=== PATIENT | male | born 1945 | race Caucasian/White ===

== ENCOUNTER 2023-07-19 01:07 | Inpatient (IN) ==
[2023-07-19 01:46] LABS: Basophils # (auto) 0.03 K/uL (0.00-0.20); Basophils % (auto) 0.4 %; Eosinophils # (auto) 0.26 K/uL (0.00-0.50); Eosinophils % (auto) 3.4 %; Hemoglobin 14.1 g/dl (14.0-18.0); Immature Granulocytes # (auto) 0.04 K/uL (0.01-0.20); Immature Granulocytes % (auto) 0.5 %; Lymphocytes # (auto) 2.37 K/uL (1.20-3.40); Lymphocytes % (auto) 31.1 %; Mean Corpuscular Hemoglobin 32.3 pg (25.0-34.0); Mean Corpuscular Hgb Conc 34.4 g/dL (32.0-36.0); Mean Platelet Volume 9.8 fL (9.4-12.4); Monocytes # (auto) 0.47 K/uL (0.11-0.59); Monocytes % (auto) 6.2 %; Neutrophils # (auto) 4.44 K/uL (1.40-6.50); Neutrophils % (auto) 58.4 %; Platelet Count 149 K/uL (130-400); RDW Coefficient of Variation 13.5 % (11.5-14.5); RDW Standard Deviation 46.3 fL (36.4-46.3); Red Blood Count 4.36 M/uL (4.70-6.10); White Blood Count 7.61 K/ul (4.8-10.8)
[2023-07-19 02:02] LABS: Alanine Aminotransferase 27 U/L (7-52); Albumin Globulin Ratio 1.9 (0.9-2); Albumin Level 4.1 gm/dl (3.4-5.0); Alkaline Phosphatase 69 U/L (34-104); Anion Gap 6 (3-11); Aspartate Aminotransferase 22 U/L (13-39); BUN Creatinine Ratio 16.8 (10-20); Bilirubin,Total 0.5 mg/dl (0.2-1.0); Blood Urea Nitrogen 19 mg/dl (6-23); Calcium 9.3 mg/dl (8.6-10.3); Carbon Dioxide 26 mmol/L (21-32); Chloride 110 mmol/L (98-107); Est GFR (African American) 72.3 ml/min; Est GFR (Non-African American) 62.4 ml/min; Globulin 2.2 gm/dl (2.5-4.0); Glucose 124 mg/dl (70-99(Fasting)); Potassium 3.3 mmol/L (3.5-5.1); Sodium 142 mmol/L (136-145); Total Protein 6.3 gm/dl (6.0-8.3)
--- NOTE | 2023-07-19 02:04 | Emergency Department Note ---
Impression & Plan 2nd degree atrioventricular block, 1st degree AV block, Vertigo ED Provider Note NAME: WARREN WILSON AGE: 77 SEX: M : 1945 ARRIVES VIA: Walk-In INFORMANT: Patient, ED PROVIDER(S): Chanel Heck MD CHIEF COMPLAINT: Dizzy HPI: This is a 77-year-old male presenting for dizziness. Patient states that he woke up around 12 and felt dizzy in which he felt vertigo type sensation. [place] like the room is spinning. He notes that when he rests this does improve. He did notice that last time this happened few years ago he was told he had a small stroke caused this. Otherwise no significant fever, chills, nausea or vomiting today. He does mention some slight gas in stomach. Some slight lower abdominal pain/back pain as well. ROS: See above HPI for pertinent positives & negatives. A total of 10 systems reviewed and were otherwise negative. PHYSICAL EXAMINATION: General: resting comfortably in no acute distress Head: Normocephalic and atraumatic Eyes: Normal inspection, extraocular muscles intact Ear, nose, throat: Normal external exam Neck: Normal range of motion Respiratory: lungs clear to auscultation bilaterally Cardiovascular: Regular rate/rhythm, no murmur GI: soft, nontender, no guarding or rebound Extremities: nontender, moves all extremities Neuro: The patient awake and alert, appropriately conversive, no focal deficits, symmetric faces, no dysmetria, left beating horizontal nystagmus Skin: Warm, dry, and intact MEDICAL DECISION MAKING: This is a 79-year-old male presenting for dizziness. Patient states last time he had some of this it was a small stroke. Concerning for central stroke at this time. -ECG independently interpreted by me with sinus bradycardia, rate of 58, normal axis, marked first-degree AV block with ND 408, normal QRS, normal QTc, no ST segment elevations consistent with STEMI criteria -On the monitor patient alternates between a first AV block and possible second- degree with occasionally dropped P waves -Blood was reviewed with hypokalemia 3.3, otherwise no significant abnormalities -CT of the head, CTA head/neck as well as abdomen/pelvis due to patient's current symptoms of central stroke as well as abdominal distention/pain. -CTs do not reveal any acute process at this time -Patient will require admission for further vertigo workup as well as patient's first/second-degree AV block at this time. Could be contributing to patient's current vertigo-like symptoms. Differential diagnosis: Send with stroke, dysrhythmia, peripheral vertigo, labyrinthitis, ACS, PE ER treatment provided: See below Diagnostics interpreted by me: ECG: See above Cardiac Monitoring: An order was placed for continuous cardiac monitoring. The monitor shows a rate of 52 with a sinus bradycardic rhythm. Laboratory studies: As stated above and show below. Imaging studies: See below. Past Med/Surg History Medical History Encounter for removal of sutures Hypertension Kidney stone Laceration of thumb, left Social History Smoking Status: Former smoker Tobacco Type: Cigarettes Preferred Language: Swiss Feels Safe at Home: Yes Allergies Allergies Allergy/AdvReac Type Severity Reaction Status Date / Time No Known Allergies Allergy Verified 07/19/23 02:03 Home Meds Home Medications Medication Instructions Recorded Confirmed aspirin 325 mg tablet 325 mg PO DAILY 01/04/18 07/19/23 atorvastatin 40 mg tablet 40 mg PO QPM 01/04/18 07/19/23 felodipine 5 mg tablet,extended 5 mg PO DAILY 01/04/18 07/19/23 release 24 hr glucosamine-chondroitin 250 mg-200 2 tabs PO DAILY 01/04/18 07/19/23 mg tablet (Osteo Bi-Flex) lisinopril 10 1 tab PO DAILY 01/04/18 07/19/23 mg-hydrochlorothiazide 12.5 mg tablet multivitamin 1 tab PO DAILY 01/04/18 07/19/23 Results & Data (ED) Vital Signs Vital Signs - 24 hr 07/19/23 01:14 07/19/23 01:36 07/19/23 01:47 Temperature 36.5 C Temperature Source Oral Pulse Rate 58 L 56 L Pulse Rate [Apical] Pulse Rate from SpO2 Sensor Respiratory Rate Respiratory Effort / Characteristics Respiratory Depth Respiratory Pattern Blood Pressure 177/90 H Blood Pressure [Left Arm] Blood Pressure Mean 119 Blood Pressure Mean [Left Arm] Pulse Oximetry 96 99 Oxygen Delivery Method Room Air Room Air Sepsis Recent Fever Within 48 Hours No Sepsis New/Unexplained Change in Mental Status No Sepsis Action Taken by Nursing No Action Required 07/19/23 01:47 07/19/23 01:47 07/19/23 03:08 Temperature Temperature Source Pulse Rate 62 Pulse Rate [Apical] 57 L 57 L Pulse Rate from SpO2 Sensor Respiratory Rate 18 18 18 Respiratory Effort / Characteristics Non-Labored Non-Labored Respiratory Depth Normal Normal Respiratory Pattern Regular Regular Blood Pressure Blood Pressure [Left Arm] 170/90 H Blood Pressure Mean Blood Pressure Mean [Left Arm] 116 Pulse Oximetry 98 98 98 Oxygen Delivery Method Room Air Sepsis Recent Fever Within 48 Hours Sepsis New/Unexplained Change in Mental Status Sepsis Action Taken by Nursing 07/19/23 04:20 07/19/23 04:30 07/19/23 04:30 Temperature Temperature Source Pulse Rate 49 L 64 Pulse Rate [Apical] 57 L Pulse Rate from SpO2 Sensor 50 L 62 Respiratory Rate 10 L 18 20 Respiratory Effort / Characteristics Non-Labored Respiratory Depth Normal Respiratory Pattern Regular Blood Pressure Blood Pressure [Left Arm] 195/102 H Blood Pressure Mean Blood Pressure Mean [Left Arm] 133 Pulse Oximetry 96 97 98 Oxygen Delivery Method Room Air Sepsis Recent Fever Within 48 Hours Sepsis New/Unexplained Change in Mental Status Sepsis Action Taken by Nursing 07/19/23 04:40 07/19/23 04:50 Temperature Temperature Source Pulse Rate 60 44 L Pulse Rate [Apical] Pulse Rate from SpO2 Sensor 59 L 47 L Respiratory Rate 13 9 L Respiratory Effort / Characteristics Respiratory Depth Respiratory Pattern Blood Pressure Blood Pressure [Left Arm] Blood Pressure Mean Blood Pressure Mean [Left Arm] Pulse Oximetry 97 98 Oxygen Delivery Method Sepsis Recent Fever Within 48 Hours Sepsis New/Unexplained Change in Mental Status Sepsis Action Taken by Nursing Laboratory Data 07/19/23 01:32 07/19/23 01:32 Lab Results 07/19/23 Range/Units 01:32 WBC 7.61 (4.8-10.8) K/ul RBC 4.36 L (4.70-6.10) M/uL Hgb 14.1 (14.0-18.0) g/dl Hct 41.0 L (42.0-52.0) % MCV 94.0 (80.0-100.0) fL MCH 32.3 (25.0-34.0) pg MCHC 34.4 (32.0-36.0) g/dL RDW Std Deviation 46.3 (36.4-46.3) fL RDW Coeff of [place]oney 13.5 (11.5-14.5) % Plt Count 149 (130-400) K/uL MPV 9.8 (9.4-12.4) fL Immature Gran % (Auto) 0.5 % Neut % (Auto) 58.4 % Lymph % (Auto) 31.1 % [place] % (Auto) 6.2 % Eos % (Auto) 3.4 % Baso % (Auto) 0.4 % Neut # (Auto) 4.44 (1.40-6.50) K/uL Lymph # (Auto) 2.37 (1.20-3.40) K/uL [place] # (Auto) 0.47 (0.11-0.59) K/uL Eos # (Auto) 0.26 (0.00-0.50) K/uL Baso # (Auto) 0.03 (0.00-0.20) K/uL Immature Gran # (Auto) 0.04 (0.01-0.20) K/uL Sodium 142 (136-145) mmol/L Potassium 3.3 L (3.5-5.1) mmol/L Chloride 110 H (98-107) mmol/L Carbon Dioxide 26 (21-32) mmol/L Anion Gap 6 (3-11) BUN 19 (6-23) mg/dl Creatinine 1.13 (0.6-1.4) mg/dl Est Cr Clr Drug Dosing Not Reportable Est GFR ( Amer) 72.3 ml/min Est GFR (Non-Af Amer) 62.4 ml/min BUN/Creatinine Ratio 16.8 (10-20) Glucose 124 H (70-99(Fasting)) mg/dl Calcium 9.3 (8.6-10.3) mg/dl Total Bilirubin 0.5 (0.2-1.0) mg/dl AST 22 (13-39) U/L ALT 27 (7-52) U/L Alkaline Phosphatase 69 (34-104) U/L Troponin I High Sens 8.7 (0-20) pg/ml Total Protein 6.3 (6.0-8.3) gm/dl Albumin 4.1 (3.4-5.0) gm/dl Globulin 2.2 L (2.5-4.0) gm/dl Albumin/Globulin Ratio 1.9 (0.9-2) Lyme Disease Screen Negative (Negative) Administered Medications Discontinued Medications Hydralazine HCl (Hydralazine Hcl 25 Mg Tab) 25 mg PO NOW STA Stop: 07/19/23 04:31 Last Admin: 07/19/23 04:38 Dose: 25 mg Documented By: CRISTIANE Ioversol (Optiray 320 125ml) 125 ml IV ONCE ONE Stop: 07/19/23 02:25 Last Admin: 07/19/23 02:24 Dose: 118 ml Documented By: MILENA Potassium Chloride (Potassium Chloride Crtab 20 Meq Tabcr) 40 meq PO NOW STA Stop: 07/19/23 06:17 Last Admin: 07/19/23 06:41 Dose: 40 meq Documented By: MATTHEW Imaging Data Radiologist's Impression: Abdomen/Pelvis CT 07/19/23 01:33 Exam(s): CT ABDOMEN + PELVIS With Contrast IV Amt: 118 ML OPTIRAY 320 EXAM: CT Abdomen and Pelvis With Intravenous Contrast CLINICAL HISTORY: Reason for exam: abd pain, diffuse. TECHNIQUE: Axial computed tomography images of the abdomen and pelvis with intravenous contrast. CTDI is 114.81 mGy and DLP is 2977.26 mGy-cm. Automated exposure control was utilized for the study. A dose lowering technique was utilized adhering to the principles of ALARA. CONTRAST: Patient received 118 ML OPTIRAY 320 of IV contrast COMPARISON: January 04, 2018 FINDINGS: Lung bases: Unremarkable. No mass. No consolidation. ABDOMEN: Liver: Unremarkable. No mass. Gallbladder and bile ducts: Unremarkable. No calcified stones. No ductal dilation. Pancreas: Unremarkable. No mass. No ductal dilation. Spleen: Unremarkable. No splenomegaly. Adrenals: Unremarkable. No mass. Kidneys and ureters: There is a nonobstructive 3 mm calyceal calculus in the left kidney. No hydronephrosis or ureterolithiasis is seen involving either kidney. Several simple renal cysts are present measuring up to 4.8 cm on the right. No follow-up is required. Stomach and bowel: See below. PELVIS: Appendix: The appendix is normal. Bowel loops are nondilated. There is diverticulosis throughout the colon without evidence of acute diverticulitis. No acute inflammatory changes are seen involving the bowel. Bladder: Unremarkable. No mass. Reproductive: Unremarkable as visualized. ABDOMEN and PELVIS: Intraperitoneal space: Unremarkable. No free air. No significant fluid collection. Bones/joints: Mild to moderate degenerative changes throughout the spine. No acute fracture or subluxation is seen. Soft tissues: Unremarkable. Vasculature: Atherosclerotic changes involving the abdominal aorta with mild ectasia measuring 3 cm. No abdominal aortic aneurysm. Lymph nodes: Unremarkable. No enlarged lymph nodes. IMPRESSION: 1. The appendix is normal. Bowel loops are nondilated. There is diverticulosis throughout the colon without evidence of acute diverticulitis. No acute inflammatory changes are seen involving the bowel. 2. There is a nonobstructive 3 mm calyceal calculus in the left kidney. No hydronephrosis or ureterolithiasis is seen involving either kidney. Electronically signed by: Cordell Younger MD 07/19/23 03:[address] 07/19/23 01:33 Exam(s): CT HEAD Without Contrast EXAM: CT Head Without Intravenous Contrast CLINICAL HISTORY: Reason for exam: vertigo. TECHNIQUE: Axial computed tomography images of the head/brain without intravenous contrast. CTDI is 31.05 mGy and DLP is 512.02 mGy-cm. Automated exposure control was utilized for the study. A dose lowering technique was utilized adhering to the principles of ALARA. COMPARISON: No relevant prior studies available. FINDINGS: Brain: Unremarkable. No hemorrhage. Moderate nonspecific white matter changes. No edema. Ventricles: Unremarkable. No ventriculomegaly. Bones/joints: Unremarkable. No acute fracture. Soft tissues: There is a smoothly marginated soft tissue lesion in the medial left orbit, measuring approximately 15.2 x 11.3 x 9.4 mm. Sinuses: Chronic ethmoid sinusitis. No acute sinusitis. Mastoid air cells: Unremarkable as visualized. No mastoid effusion. IMPRESSION: No evidence of acute intracranial pathology. There is a soft tissue lesion in the medial left orbit measuring 15.2 x 11.3 x 9.4 mm. Recommend MRI of the orbits with and without contrast for further evaluation. Electronically signed by: Orin Mei MD 07/19/23 03:17 AM Head CTA 07/19/23 01:57 Exam(s): CTA HEAD With Contrast IV Amt: 118 ML OPTIRAY 320 EXAM: CT Angiography Head With Intravenous Contrast CLINICAL HISTORY: Reason for exam: vertigo, hx stroke. TECHNIQUE: Axial computed tomographic angiography images of the head with intravenous contrast. CTDI is 114.81 mGy and DLP is 2977.26 mGy-cm. Automated exposure control was utilized for the study. A dose lowering technique was utilized adhering to the principles of ALARA. MIP reconstructed images were created and reviewed. CONTRAST: Patient received 118 ML OPTIRAY 320 of IV contrast COMPARISON: No relevant prior studies available. FINDINGS: The dural venous sinuses are patent. Right internal carotid artery: No acute findings. Intracranial segment is patent with no significant stenosis. No aneurysm. Right anterior cerebral artery: Unremarkable. No occlusion or significant stenosis. No aneurysm. Right middle cerebral artery: Unremarkable. No occlusion or significant stenosis. No aneurysm. Right posterior cerebral artery: Unremarkable. No occlusion or significant stenosis. No aneurysm. Right vertebral artery: Unremarkable as visualized. Left internal carotid artery: No acute findings. Intracranial segment is patent with no significant stenosis. No aneurysm. Left anterior cerebral artery: Unremarkable. No occlusion or significant stenosis. No aneurysm. Left middle cerebral artery: Unremarkable. No occlusion or significant stenosis. No aneurysm. Left posterior cerebral artery: Unremarkable. No occlusion or significant stenosis. No aneurysm. Left vertebral artery: Unremarkable as visualized. Basilar artery: Unremarkable. No occlusion or significant stenosis. No aneurysm. IMPRESSION: Negative CT angiogram of the head. Electronically signed by: Orin Mei MD 07/19/23 03:31 AM Neck CTA 07/19/23 01:57 Exam(s): CTA NECK With Contrast IV Amt: 118 ML OPTIRAY 320 EXAM: CT Angiography Neck With Intravenous Contrast CLINICAL HISTORY: Reason for exam: vertigo, hx stroke. TECHNIQUE: Routine carotid CT angiography protocol was performed with intravenous contrast. NASCET criteria using the distal ICAs for comparison were used for evaluation of stenoses. CTDI is 114.81 mGy and DLP is 2977.26 mGy-cm. Automated exposure control was utilized for the study. A dose lowering technique was utilized adhering to the principles of ALARA. MIP reconstructed images were created and reviewed. CONTRAST: Patient received 118 ML OPTIRAY 320 of IV contrast COMPARISON: None. FINDINGS: VASCULATURE: Ectasia of the ascending aorta measuring 34.7 mm in diameter. Right common carotid artery: Unremarkable. No occlusion or significant stenosis. No dissection. Right internal carotid artery: Unremarkable. Extracranial segment is patent with no occlusion or significant stenosis. No dissection. Right external carotid artery: Unremarkable. No occlusion. Right vertebral artery: Unremarkable. No occlusion or significant stenosis. No dissection. Left common carotid artery: Unremarkable. No occlusion or significant stenosis. No dissection. Left internal carotid artery: Unremarkable. Extracranial segment is patent with no occlusion or significant stenosis. No dissection. Left external carotid artery: Unremarkable. No occlusion. Left vertebral artery: Unremarkable. No occlusion or significant stenosis. No dissection. NECK: Bones/joints: Unremarkable. No acute fracture. Soft tissues: Prominent mediastinal and hilar lymph nodes. Lung apices: Bronchitis with pneumonitis, which may be of infectious or inflammatory jaundice. CAROTID STENOSIS REFERENCE USING NASCET CRITERIA: % ICA stenosis = (1 - narrowest ICA diameter/diameter of distal cervical ICA) x 100. Mild - <50% stenosis. Moderate - 50-69% stenosis. Severe - 70-94% stenosis. Near occlusion - 95-99% stenosis. Occluded - 100% stenosis. IMPRESSION: Negative CTA neck. Electronically signed by: Orin Mei MD 07/19/23 03:38 AM Discharge Plan Visit Data Chief Complaint: Dizziness Stated Complaint: DIZZINESS,PAIN IN LWR BACK ED Provider: Chanel Heck Discharge Problem: 2nd degree atrioventricular block, 1st degree AV block, Vertigo Patient Disposition: Admitted As Inpatient Discharge Instructions Interventions: ED Discharge Assessment Last Done: 07/19/23 06:41
[2023-07-19] MEDS: OPTIRAY 320 125ml IV ONE (02:24)
[2023-07-19 02:29] LABS: Troponin I High Sensitivity 8.7 pg/ml (0-20)
--- NOTE | 2023-07-19 03:18 | CT Scan Report ---
Exam(s): CT HEAD Without Contrast EXAM: CT Head Without Intravenous Contrast CLINICAL HISTORY: Reason for exam: vertigo. TECHNIQUE: Axial computed tomography images of the head/brain without intravenous contrast. CTDI is 31.05 mGy and DLP is 512.02 mGy-cm. Automated exposure control was utilized for the study. A dose lowering technique was utilized adhering to the principles of ALARA. COMPARISON: No relevant prior studies available. FINDINGS: Brain: Unremarkable. No hemorrhage. Moderate nonspecific white matter changes. No edema. Ventricles: Unremarkable. No ventriculomegaly. Bones/joints: Unremarkable. No acute fracture. Soft tissues: There is a smoothly marginated soft tissue lesion in the medial left orbit, measuring approximately 15.2 x 11.3 x 9.4 mm. Sinuses: Chronic ethmoid sinusitis. No acute sinusitis. Mastoid air cells: Unremarkable as visualized. No mastoid effusion. IMPRESSION: No evidence of acute intracranial pathology. There is a soft tissue lesion in the medial left orbit measuring 15.2 x 11.3 x 9.4 mm. Recommend MRI of the orbits with and without contrast for further evaluation. Electronically signed by: Orin Mei MD 07/19/23 03:17 AM
--- NOTE | 2023-07-19 03:28 | CT Scan Report ---
Exam(s): CT ABDOMEN + PELVIS With Contrast IV Amt: 118 ML OPTIRAY 320 EXAM: CT Abdomen and Pelvis With Intravenous Contrast CLINICAL HISTORY: Reason for exam: abd pain, diffuse. TECHNIQUE: Axial computed tomography images of the abdomen and pelvis with intravenous contrast. CTDI is 114.81 mGy and DLP is 2977.26 mGy-cm. Automated exposure control was utilized for the study. A dose lowering technique was utilized adhering to the principles of ALARA. CONTRAST: Patient received 118 ML OPTIRAY 320 of IV contrast COMPARISON: January 04, 2018 FINDINGS: Lung bases: Unremarkable. No mass. No consolidation. ABDOMEN: Liver: Unremarkable. No mass. Gallbladder and bile ducts: Unremarkable. No calcified stones. No ductal dilation. Pancreas: Unremarkable. No mass. No ductal dilation. Spleen: Unremarkable. No splenomegaly. Adrenals: Unremarkable. No mass. Kidneys and ureters: There is a nonobstructive 3 mm calyceal calculus in the left kidney. No hydronephrosis or ureterolithiasis is seen involving either kidney. Several simple renal cysts are present measuring up to 4.8 cm on the right. No follow-up is required. Stomach and bowel: See below. PELVIS: Appendix: The appendix is normal. Bowel loops are nondilated. There is diverticulosis throughout the colon without evidence of acute diverticulitis. No acute inflammatory changes are seen involving the bowel. Bladder: Unremarkable. No mass. Reproductive: Unremarkable as visualized. ABDOMEN and PELVIS: Intraperitoneal space: Unremarkable. No free air. No significant fluid collection. Bones/joints: Mild to moderate degenerative changes throughout the spine. No acute fracture or subluxation is seen. Soft tissues: Unremarkable. Vasculature: Atherosclerotic changes involving the abdominal aorta with mild ectasia measuring 3 cm. No abdominal aortic aneurysm. Lymph nodes: Unremarkable. No enlarged lymph nodes. IMPRESSION: 1. The appendix is normal. Bowel loops are nondilated. There is diverticulosis throughout the colon without evidence of acute diverticulitis. No acute inflammatory changes are seen involving the bowel. 2. There is a nonobstructive 3 mm calyceal calculus in the left kidney. No hydronephrosis or ureterolithiasis is seen involving either kidney. Electronically signed by: Cordell Younger MD 07/19/23 03:27 AM
--- NOTE | 2023-07-19 03:32 | CT Scan Report ---
Exam(s): CTA HEAD With Contrast IV Amt: 118 ML OPTIRAY 320 EXAM: CT Angiography Head With Intravenous Contrast CLINICAL HISTORY: Reason for exam: vertigo, hx stroke. TECHNIQUE: Axial computed tomographic angiography images of the head with intravenous contrast. CTDI is 114.81 mGy and DLP is 2977.26 mGy-cm. Automated exposure control was utilized for the study. A dose lowering technique was utilized adhering to the principles of ALARA. MIP reconstructed images were created and reviewed. CONTRAST: Patient received 118 ML OPTIRAY 320 of IV contrast COMPARISON: No relevant prior studies available. FINDINGS: The dural venous sinuses are patent. Right internal carotid artery: No acute findings. Intracranial segment is patent with no significant stenosis. No aneurysm. Right anterior cerebral artery: Unremarkable. No occlusion or significant stenosis. No aneurysm. Right middle cerebral artery: Unremarkable. No occlusion or significant stenosis. No aneurysm. Right posterior cerebral artery: Unremarkable. No occlusion or significant stenosis. No aneurysm. Right vertebral artery: Unremarkable as visualized. Left internal carotid artery: No acute findings. Intracranial segment is patent with no significant stenosis. No aneurysm. Left anterior cerebral artery: Unremarkable. No occlusion or significant stenosis. No aneurysm. Left middle cerebral artery: Unremarkable. No occlusion or significant stenosis. No aneurysm. Left posterior cerebral artery: Unremarkable. No occlusion or significant stenosis. No aneurysm. Left vertebral artery: Unremarkable as visualized. Basilar artery: Unremarkable. No occlusion or significant stenosis. No aneurysm. IMPRESSION: Negative CT angiogram of the head. Electronically signed by: Orin Mei MD 07/19/23 03:31 AM
--- NOTE | 2023-07-19 03:39 | CT Scan Report ---
Exam(s): CTA NECK With Contrast IV Amt: 118 ML OPTIRAY 320 EXAM: CT Angiography Neck With Intravenous Contrast CLINICAL HISTORY: Reason for exam: vertigo, hx stroke. TECHNIQUE: Routine carotid CT angiography protocol was performed with intravenous contrast. NASCET criteria using the distal ICAs for comparison were used for evaluation of stenoses. CTDI is 114.81 mGy and DLP is 2977.26 mGy-cm. Automated exposure control was utilized for the study. A dose lowering technique was utilized adhering to the principles of ALARA. MIP reconstructed images were created and reviewed. CONTRAST: Patient received 118 ML OPTIRAY 320 of IV contrast COMPARISON: None. FINDINGS: VASCULATURE: Ectasia of the ascending aorta measuring 34.7 mm in diameter. Right common carotid artery: Unremarkable. No occlusion or significant stenosis. No dissection. Right internal carotid artery: Unremarkable. Extracranial segment is patent with no occlusion or significant stenosis. No dissection. Right external carotid artery: Unremarkable. No occlusion. Right vertebral artery: Unremarkable. No occlusion or significant stenosis. No dissection. Left common carotid artery: Unremarkable. No occlusion or significant stenosis. No dissection. Left internal carotid artery: Unremarkable. Extracranial segment is patent with no occlusion or significant stenosis. No dissection. Left external carotid artery: Unremarkable. No occlusion. Left vertebral artery: Unremarkable. No occlusion or significant stenosis. No dissection. NECK: Bones/joints: Unremarkable. No acute fracture. Soft tissues: Prominent mediastinal and hilar lymph nodes. Lung apices: Bronchitis with pneumonitis, which may be of infectious or inflammatory jaundice. CAROTID STENOSIS REFERENCE USING NASCET CRITERIA: % ICA stenosis = (1 - narrowest ICA diameter/diameter of distal cervical ICA) x 100. Mild - <50% stenosis. Moderate - 50-69% stenosis. Severe - 70-94% stenosis. Near occlusion - 95-99% stenosis. Occluded - 100% stenosis. IMPRESSION: Negative CTA neck. Electronically signed by: Orin Mei MD 07/19/23 03:38 AM
[2023-07-19] MEDS: hydrALAZINE HCL 25 MG TAB PO STA (04:38)
[2023-07-19] MEDS ORDERED: ATROPINE SULFATE 0.1 MG/ML 10ML SYR IV PRN (05:47)
--- NOTE | 2023-07-19 05:53 | History & Physical Report ---
Date of Service July 19, 2023 Assessment & Plan (1) Dizziness: Plan: 77-year-old male with past medical history significant for dyslipidemia, prediabetes, hypertension, irritable colon, BPH, proteinuria, eczema, obesity, history of TIA, history of kidney stones presents with dizziness. Patient lives with his son. Ambulates without support. Around midnight when he woke up to go to the bathroom started feeling dizzy. Seems when he had dizziness in the past found to have TIA and prompted him to come to the ER. Currently dizziness resolved while resting. But when he tried to walk to the bathroom in the ER he felt dizzy. No room spinning. No nausea. No chest pain. No shortness of breath. No cough. No fevers. No headache. Vision is okay. No runny nose or sore throat. Appetite is okay. No difficulty swallowing. No abdominal pain. Normal bowel and bladder movements. Denies bloody or black stools . Dizziness Currently while resting doing okay But dizziness came back while ambulating to the bathroom in the ER No spinning of the room CT head: soft tissue lesion in the medial left orbit measuring 15.2 x 11.3 x 9.4 mm. 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 Cardiology consult Close telemonitoring Hypertension Elevated Continue home medications felodipine, lisinopril /hydrochlorothiazide Received a dose of p.o. hydralazine for elevated blood pressure Will monitor closely Hyperlipidemia On statin Follow lipid profile Prediabetes Follow HbA1c levels DVT prophylaxis SCDs for now Disposition Telemetry Full code History of Present Illness Chief Complaint: Dizziness Primary Care Provider: Facundo Mcgill DO 77-year-old male with past medical history significant for dyslipidemia, prediabetes, hypertension, irritable colon, BPH, proteinuria, eczema, obesity, history of TIA, history of kidney stones presents with dizziness. Patient lives with his son. Ambulates without support. Around midnight when he woke up to go to the bathroom started feeling dizzy. Seems when he had dizziness in the past found to have TIA and prompted him to come to the ER. Currently dizziness resolved while resting. But when he tried to walk to the bathroom in the ER he felt dizzy. No room spinning. No nausea. No chest pain. No shortness of breath. No cough. No fevers. No headache. Vision is okay. No runny nose or sore throat. Appetite is okay. No difficulty swallowing. No abdominal pain. Normal bowel and bladder movements. Denies bloody or black stools . Past medical history. As mentioned above Past surgical history. Colonoscopy. Cystoscopy with lithotripsy ,left third finger repair. Social history. . Lives with her son. Quit smoking 1990. Smoked on average 0.5 packs a day for 22 years. Alcohol 2 standard drinks of alcohol per week. No drug use. Family history. Father had throat cancer. Sister had diabetes. Brother had heart disorder. Mother had lung disorder. Allergies Allergy/AdvReac Type Severity Reaction Status Date / Time No Known Allergies Allergy Verified 07/19/23 02:03 Home Medications Medication Instructions Recorded Confirmed Type aspirin 325 mg tablet 325 mg PO DAILY 01/04/18 07/19/23 History atorvastatin 40 mg tablet 40 mg PO QPM 01/04/18 07/19/23 History felodipine 5 mg tablet,extended 5 mg PO DAILY 01/04/18 07/19/23 History release 24 hr glucosamine-chondroitin 250 mg-200 2 tabs PO DAILY 01/04/18 07/19/23 History mg tablet (Osteo Bi-Flex) lisinopril 10 1 tab PO DAILY 01/04/18 07/19/23 History mg-hydrochlorothiazide 12.5 mg tablet multivitamin 1 tab PO DAILY 01/04/18 07/19/23 History Past Med/Surg History Medical History Hypertension Kidney stone Encounter for removal of sutures Laceration of thumb, left Social History Smoking Status: Former smoker Tobacco Type: Cigarettes Do You Dip or Chew Tobacco: No; Hx Alcohol Use: No Hx Substance Use: No Preferred Language: Divehi Communication Ability: Effective 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 ENT- oropharynx clear Neck- supple, no JVD. Lungs- clear to auscultation no wheezing or crackles Heart- regular rhythm; no murmur, no gallop. Abdomen- normal bowel sounds, soft, nontender, no distension. Extremities- no pretibial edema, no erythema seen. Neuro- alert, oriented x 3; PERRL, EOMI; no facial palsy; no dysarthria; motor 5/5 bilaterally; no pronator drift, co ordination of movements normal. sensations intact, position sense intact. Skin- warm & dry Results & Data Results & Data Vital Signs (Past 12 Hours) Vital Signs Temp Pulse Pulse Resp BP BP Pulse Ox 07/19/23 05:31 46 L 07/19/23 05:30 163/86 H 07/19/23 05:30 49 L 16 163/86 H 96 07/19/23 04:50 44 L 9 L 98 07/19/23 04:40 60 13 97 07/19/23 04:30 64 20 98 07/19/23 04:30 57 L 18 195/102 H 97 07/19/23 04:20 49 L 10 L 96 07/19/23 03:08 57 L 18 170/90 H 98 07/19/23 01:47 62 18 98 07/19/23 01:47 57 L 18 98 07/19/23 01:47 99 07/19/23 01:36 56 L 07/19/23 01:14 36.5 C 58 L 177/90 H 96 O2 Del Method 07/19/23 05:31 07/19/23 05:30 07/19/23 05:30 07/19/23 04:50 07/19/23 04:40 07/19/23 04:30 07/19/23 04:30 Room Air 07/19/23 04:20 07/19/23 03:08 07/19/23 01:47 Room Air 07/19/23 01:47 07/19/23 01:47 Room Air 07/19/23 01:36 07/19/23 01:14 Room Air Diagnostic Findings Laboratory Results WBC 7.61 K/ul (4.8-10.8) 07/19/23 01:32 RBC 4.36 M/uL (4.70-6.10) L 07/19/23 01:32 Hgb 14.1 g/dl (14.0-18.0) 07/19/23 01:32 Hct 41.0 % (42.0-52.0) L 07/19/23 01:32 MCV 94.0 fL (80.0-100.0) 07/19/23 01:32 MCH 32.3 pg (25.0-34.0) 07/19/23 01:32 MCHC 34.4 g/dL (32.0-36.0) 07/19/23 01:32 RDW Std Deviation 46.3 fL (36.4-46.3) 07/19/23 01:32 RDW Coeff of Roney 13.5 % (11.5-14.5) 07/19/23 01:32 Plt Count 149 K/uL (130-400) 07/19/23 01:32 MPV 9.8 fL (9.4-12.4) 07/19/23 01:32 Immature Gran % (Auto) 0.5 % 07/19/23 01:32 Neut % (Auto) 58.4 % 07/19/23 01:32 Lymph % (Auto) 31.1 % 07/19/23 01:32 [place] % (Auto) 6.2 % 07/19/23 01:32 Eos % (Auto) 3.4 % 07/19/23 01:32 Baso % (Auto) 0.4 % 07/19/23 01:32 Neut # (Auto) 4.44 K/uL (1.40-6.50) 07/19/23 01:32 Lymph # (Auto) 2.37 K/uL (1.20-3.40) 07/19/23 01:32 [place] # (Auto) 0.47 K/uL (0.11-0.59) 07/19/23 01:32 Eos # (Auto) 0.26 K/uL (0.00-0.50) 07/19/23 01:32 Baso # (Auto) 0.03 K/uL (0.00-0.20) 07/19/23 01:32 Immature Gran # (Auto) 0.04 K/uL (0.01-0.20) 07/19/23 01:32 Sodium 142 mmol/L (136-145) 07/19/23 01:32 Potassium 3.3 mmol/L (3.5-5.1) L 07/19/23 01:32 Chloride 110 mmol/L (98-107) H 07/19/23 01:32 Carbon Dioxide 26 mmol/L (21-32) 07/19/23 01:32 Anion Gap 6 (3-11) 07/19/23 01:32 BUN 19 mg/dl (6-23) 07/19/23 01:32 Creatinine 1.13 mg/dl (0.6-1.4) 07/19/23 01:32 Est Cr Clr Drug Dosing Not Reportable 07/19/23 01:32 Est GFR ( Amer) 72.3 ml/min 07/19/23 01:32 Est GFR (Non-Af Amer) 62.4 ml/min 07/19/23 01:32 BUN/Creatinine Ratio 16.8 (10-20) 07/19/23 01:32 Glucose 124 mg/dl (70-99(Fasting)) H 07/19/23 01:32 Calcium 9.3 mg/dl (8.6-10.3) 07/19/23 01:32 Total Bilirubin 0.5 mg/dl (0.2-1.0) 07/19/23 01:32 AST 22 U/L (13-39) 07/19/23 01:32 ALT 27 U/L (7-52) 07/19/23 01:32 Alkaline Phosphatase 69 U/L (34-104) 07/19/23 01:32 Troponin I High Sens 8.7 pg/ml (0-20) 07/19/23 01:32 Total Protein 6.3 gm/dl (6.0-8.3) 07/19/23 01:32 Albumin 4.1 gm/dl (3.4-5.0) 07/19/23 01:32 Globulin 2.2 gm/dl (2.5-4.0) L 07/19/23 01:32 Albumin/Globulin Ratio 1.9 (0.9-2) 07/19/23 01:32 Lyme Disease Screen Negative (Negative) 07/19/23 01:32 Impressions Abdomen/Pelvis CT 07/19/23 01:33 Exam(s): CT ABDOMEN + PELVIS With Contrast IV Amt: 118 ML OPTIRAY 320 EXAM: CT Abdomen and Pelvis With Intravenous Contrast CLINICAL HISTORY: Reason for exam: abd pain, diffuse. TECHNIQUE: Axial computed tomography images of the abdomen and pelvis with intravenous contrast. CTDI is 114.81 mGy and DLP is 2977.26 mGy-cm. Automated exposure control was utilized for the study. A dose lowering technique was utilized adhering to the principles of ALARA. CONTRAST: Patient received 118 ML OPTIRAY 320 of IV contrast COMPARISON: January 04, 2018 FINDINGS: Lung bases: Unremarkable. No mass. No consolidation. ABDOMEN: Liver: Unremarkable. No mass. Gallbladder and bile ducts: Unremarkable. No calcified stones. No ductal dilation. Pancreas: Unremarkable. No mass. No ductal dilation. Spleen: Unremarkable. No splenomegaly. Adrenals: Unremarkable. No mass. Kidneys and ureters: There is a nonobstructive 3 mm calyceal calculus in the left kidney. No hydronephrosis or ureterolithiasis is seen involving either kidney. Several simple renal cysts are present measuring up to 4.8 cm on the right. No follow-up is required. Stomach and bowel: See below. PELVIS: Appendix: The appendix is normal. Bowel loops are nondilated. There is diverticulosis throughout the colon without evidence of acute diverticulitis. No acute inflammatory changes are seen involving the bowel. Bladder: Unremarkable. No mass. Reproductive: Unremarkable as visualized. ABDOMEN and PELVIS: Intraperitoneal space: Unremarkable. No free air. No significant fluid collection. Bones/joints: Mild to moderate degenerative changes throughout the spine. No acute fracture or subluxation is seen. Soft tissues: Unremarkable. Vasculature: Atherosclerotic changes involving the abdominal aorta with mild ectasia measuring 3 cm. No abdominal aortic aneurysm. Lymph nodes: Unremarkable. No enlarged lymph nodes. IMPRESSION: 1. The appendix is normal. Bowel loops are nondilated. There is diverticulosis throughout the colon without evidence of acute diverticulitis. No acute inflammatory changes are seen involving the bowel. 2. There is a nonobstructive 3 mm calyceal calculus in the left kidney. No hydronephrosis or ureterolithiasis is seen involving either kidney. Electronically signed by: Cordell Younger MD 07/19/23 03:[address] 07/19/23 01:33 Exam(s): CT HEAD Without Contrast EXAM: CT Head Without Intravenous Contrast CLINICAL HISTORY: Reason for exam: vertigo. TECHNIQUE: Axial computed tomography images of the head/brain without intravenous contrast. CTDI is 31.05 mGy and DLP is 512.02 mGy-cm. Automated exposure control was utilized for the study. A dose lowering technique was utilized adhering to the principles of ALARA. COMPARISON: No relevant prior studies available. FINDINGS: Brain: Unremarkable. No hemorrhage. Moderate nonspecific white matter changes. No edema. Ventricles: Unremarkable. No ventriculomegaly. Bones/joints: Unremarkable. No acute fracture. Soft tissues: There is a smoothly marginated soft tissue lesion in the medial left orbit, measuring approximately 15.2 x 11.3 x 9.4 mm. Sinuses: Chronic ethmoid sinusitis. No acute sinusitis. Mastoid air cells: Unremarkable as visualized. No mastoid effusion. IMPRESSION: No evidence of acute intracranial pathology. There is a soft tissue lesion in the medial left orbit measuring 15.2 x 11.3 x 9.4 mm. Recommend MRI of the orbits with and without contrast for further evaluation. Electronically signed by: Orin Mei MD 07/19/23 03:17 AM Head CTA 07/19/23 01:57 Exam(s): CTA HEAD With Contrast IV Amt: 118 ML OPTIRAY 320 EXAM: CT Angiography Head With Intravenous Contrast CLINICAL HISTORY: Reason for exam: vertigo, hx stroke. TECHNIQUE: Axial computed tomographic angiography images of the head with intravenous contrast. CTDI is 114.81 mGy and DLP is 2977.26 mGy-cm. Automated exposure control was utilized for the study. A dose lowering technique was utilized adhering to the principles of ALARA. MIP reconstructed images were created and reviewed. CONTRAST: Patient received 118 ML OPTIRAY 320 of IV contrast COMPARISON: No relevant prior studies available. FINDINGS: The dural venous sinuses are patent. Right internal carotid artery: No acute findings. Intracranial segment is patent with no significant stenosis. No aneurysm. Right anterior cerebral artery: Unremarkable. No occlusion or significant stenosis. No aneurysm. Right middle cerebral artery: Unremarkable. No occlusion or significant stenosis. No aneurysm. Right posterior cerebral artery: Unremarkable. No occlusion or significant stenosis. No aneurysm. Right vertebral artery: Unremarkable as visualized. Left internal carotid artery: No acute findings. Intracranial segment is patent with no significant stenosis. No aneurysm. Left anterior cerebral artery: Unremarkable. No occlusion or significant stenosis. No aneurysm. Left middle cerebral artery: Unremarkable. No occlusion or significant stenosis. No aneurysm. Left posterior cerebral artery: Unremarkable. No occlusion or significant stenosis. No aneurysm. Left vertebral artery: Unremarkable as visualized. Basilar artery: Unremarkable. No occlusion or significant stenosis. No aneurysm. IMPRESSION: Negative CT angiogram of the head. Electronically signed by: Orin Mei MD 07/19/23 03:31 AM Neck CTA 07/19/23 01:57 Exam(s): CTA NECK With Contrast IV Amt: 118 ML OPTIRAY 320 EXAM: CT Angiography Neck With Intravenous Contrast CLINICAL HISTORY: Reason for exam: vertigo, hx stroke. TECHNIQUE: Routine carotid CT angiography protocol was performed with intravenous contrast. NASCET criteria using the distal ICAs for comparison were used for evaluation of stenoses. CTDI is 114.81 mGy and DLP is 2977.26 mGy-cm. Automated exposure control was utilized for the study. A dose lowering technique was utilized adhering to the principles of ALARA. MIP reconstructed images were created and reviewed. CONTRAST: Patient received 118 ML OPTIRAY 320 of IV contrast COMPARISON: None. FINDINGS: VASCULATURE: Ectasia of the ascending aorta measuring 34.7 mm in diameter. Right common carotid artery: Unremarkable. No occlusion or significant stenosis. No dissection. Right internal carotid artery: Unremarkable. Extracranial segment is patent with no occlusion or significant stenosis. No dissection. Right external carotid artery: Unremarkable. No occlusion. Right vertebral artery: Unremarkable. No occlusion or significant stenosis. No dissection. Left common carotid artery: Unremarkable. No occlusion or significant stenosis. No dissection. Left internal carotid artery: Unremarkable. Extracranial segment is patent with no occlusion or significant stenosis. No dissection. Left external carotid artery: Unremarkable. No occlusion. Left vertebral artery: Unremarkable. No occlusion or significant stenosis. No dissection. NECK: Bones/joints: Unremarkable. No acute fracture. Soft tissues: Prominent mediastinal and hilar lymph nodes. Lung apices: Bronchitis with pneumonitis, which may be of infectious or inflammatory jaundice. CAROTID STENOSIS REFERENCE USING NASCET CRITERIA: % ICA stenosis = (1 - narrowest ICA diameter/diameter of distal cervical ICA) x 100. Mild - <50% stenosis. Moderate - 50-69% stenosis. Severe - 70-94% stenosis. Near occlusion - 95-99% stenosis. Occluded - 100% stenosis. IMPRESSION: Negative CTA neck. Electronically signed by: Orin Mei MD 07/19/23 03:38 AM ECG Additional Comments: ECG. Sinus bradycardia with first-degree AV block at rate of 58. No acute ST changes seen. Code Status & VTE Plan VTE Prophylaxis Plan VTE Prophylaxis will be ordered: Yes
[2023-07-19] MEDS: POTASSIUM CHLORIDE CRTAB 20 MEQ TABCR PO STA (06:41)
[2023-07-19] MEDS ORDERED: POLYETHYLENE (MIRALAX) 17 GM PACK PO PRN (06:41)
[2023-07-19] MEDS ORDERED: NITROGLYCERIN SL 0.4 MG/TAB TAB SL PRN (06:41)
--- NOTE | 2023-07-19 07:24 | Cardiology Consultation ---
Date of Consultation July 19, 2023 Assessment & Plan (1) Dizziness: (2) 1st degree AV block: (3) 2nd degree atrioventricular block: (4) Hypertension: Plan IMPRESSION: 77 year old male presenting with concerns of positional dizziness described as "room spinning". Currently symptoms free. EKG showing SR with a long 1st degree AVB. Telemetry with intermittent 2nd degree Type 1 HB/Wenckebach block. Lyme negative. Not on AVN blocking agents. PLAN: Dizziness/Conduction system disease: Dizziness has some qualities of vertigo to the symptoms described-- consider trial of meclizine However, he is having intermittent Wenckebach on telemetry-- discussed conduction system disease with the patient and daughter. Discussed indication of PPM. Monitor on telemetry over night. Will need screening for nocturnal hypoxemia prior to discharge. If positive will need formal sleep study as outpatient. Okay to eat today. Avoid AVN blocking agents at this time. Consider outpatient zio if findings on telemetry unremarkable this admission. Echo pending-- further recommendations pending results. Hypertension: BP improving after morning medication administration. Will need to continue to monitor and titrate dosage as needed. Continue Lisinopril-HCTZ and Felodipine as ordered. TIA: Hx of remote TIA Current CTA head unremarkable. MRI pending. Continue ASA and statin as ordered. Case discussed with Dr. Capellan. Further recommendations pending assessment. I spent a total of 40 minutes on the date of service in preparation, delivery, and documentation of the care provided to the patient excluding any time spent in the performance of separately billed services. ION Gatica Department of Cardiology, [facility] This chart was completed in part utilizing Speech Voice Recognition Software. Grammatical errors, random word insertions, pronoun errors, and incomplete sentences are an occasional consequence of this system due to software limitations, ambient noise, and hardware issues. Any formal questions or concerns about the content, text, or information contained within the body of this dictation should be directly addressed to the provider for clarification. Supervising Physician Co-Signing Physician Notes Patient was seen and personally examined. Inpatient and outpatient charts rev iewed. Full assessment and plan as outlined by advanced provider above. Care plan personally endorsed 77-year-old male presented for evaluation of symptoms of dizziness. Symptoms by description are vertiginous in nature with spinning. No lightheadedness or near syncope. Found to be in the ER sinus rhythm with first-degree AV block (chronic on EKG in 2015) plus additional episodes of transient Mobitz type I second-degree AV block. Episodes did not correlate with symptoms Neurologic evaluation in process Echocardiogram moderate left ventricular hypertrophy with normal left ventricular systolic function Impression: 77-year-old male presents with dizziness atypical for arrhythmia induced hypoperfusion. Telemetry demonstrates sinus rhythm with first-degree AV block with intermittent Mobitz type I second-degree AV block. Plan as above would continue telemetry overnight, check nocturnal oximetry. Ambulate in hospital. No indications for pacemaker at this time but will follow Lyme screen negative will add thyroid function test History of Present Illness Reason for Consultation: Bradycardia Dizziness Abnormal EKG Requesting Physician: Cyrus foote Attending Physician: Юлия Coyne MD History of Present Illness 77-year-old male presenting to the [facility] emergency department last evening due dizziness that occurred when he woke up in the middle of the night to use the restroom. Symptoms described as the room spinning. Walked to the bathroom without falling. Got into bed and symptoms persisted. Notes that this occurs when his BP is elevated. Has a home health aid who visits frequently. Notes BP in the 130/70s when she takes his BP. Symptoms reminiscent of when he had a TIA in the remote past. Describes himself as a hard working and active individual. Initially thought his symptoms were due to "over working" himself yesterday-- was out in the garden and shoveling stone. He did takes rests and stay hydrated. EKG showed bradycardia with rates in the mid 50s. First-degree AV block noted. Telemetry revealing intermittent Mobitz type I heart block (0728 & 0735 x2 examples) Echocardiogram pending. Blood pressures hypertensive--maintained on felodipine, lisinoprilhydrochlorothiazide at home. Did receive a dose of oral hydralazine in the ED as well as IV fluids. Labs: CBC stable. No evidence of anemia. Renal function stable. Potassium low at 3.3. High-sensitivity troponin negative x 1. Lyme negative. Head CT/CTA: No evidence of acute intracranial pathology. Neck CTA: Unremarkable Upon entrance into the room patient resting comfortably in bed. Daughter at bedside. Currently free of dizziness. BP remains hypertensive this admission, but improved to the 140s systolic on my assessment at ~10am. Denies chest pain, shortness of breath, palpitations. No syncope. No orthopnea, PND, or increased lower extremity edema. No fever, chills, cough, hematochezia, melena, or hemoptysis. Daughter has concerns for sleep apnea as the patient has a longstanding history of snoring- denies apneic periods. Past medical history: Hypertension Dyslipidemia History of TIA Prediabetes Allergies Allergy/AdvReac Type Severity Reaction Status Date / Time No Known Allergies Allergy Verified 07/19/23 02:03 Home Medications Medication Instructions Recorded Confirmed Type aspirin 325 mg tablet 325 mg PO DAILY 01/04/18 07/19/23 History atorvastatin 40 mg tablet 40 mg PO QPM 01/04/18 07/19/23 History felodipine 5 mg tablet,extended 5 mg PO DAILY 01/04/18 07/19/23 History release 24 hr glucosamine-chondroitin 250 mg-200 2 tabs PO DAILY 01/04/18 07/19/23 History mg tablet (Osteo Bi-Flex) lisinopril 10 1 tab PO DAILY 01/04/18 07/19/23 History mg-hydrochlorothiazide 12.5 mg tablet multivitamin 1 tab PO DAILY 01/04/18 07/19/23 History Patient History Medical History Hypertension Kidney stone Encounter for removal of sutures Laceration of thumb, left Social History Smoking Status: Former smoker Tobacco Type: Cigarettes Do You Dip or Chew Tobacco: No; Hx Alcohol Use: No Hx Substance Use: No Preferred Language: Chinese Communication Ability: Effective Public Welfare Director Required: No Beliefs That Will Affect Care: None Current Living Situation: Family Current Living Situation Comment: son lives with patient Other Information That Helps Us Care for You: No Feels Safe at Home: Yes Safety Concerns: Feels Safe At This Time Assistive Devices: Denture - Upper and Denture - Lower Review of Systems Review of Systems: All systems reviewed & are unremarkable except as noted in HPI & below Physical Exam Constitutional: WD/WN, vitals as above no acute distress Eyes: PERRL, conjunctivae normal, anicteric sclerae Neck: normal visual inspection and trachea midline Respiratory: normal respiratory effort, lungs clear to auscultation Cardiovascular: Rate/Rhythm: regular rate and regular rhythm Heart Sounds: normal S1 and normal S2; no murmur Vessels: no JVD Extremities: no edema Gastrointestinal (Abdomen): normal bowel sounds, soft, nontender, no hepatosplenomegaly Skin: no rashes, warm and dry Neurologic: PERRL, EOMI, accommodation nl, no face palsy, no dysarthria Psychiatric: A+Ox3, euthymic affect Results & Data Vital Signs (Past 12 Hours) Vital Signs Temp Pulse Pulse Resp BP BP Pulse Ox 07/19/23 07:04 63 07/19/23 06:00 62 18 162/98 H 98 07/19/23 05:31 46 L 07/19/23 05:30 163/86 H 07/19/23 05:30 49 L 16 163/86 H 96 07/19/23 04:50 44 L 9 L 98 07/19/23 04:40 60 13 97 07/19/23 04:30 64 20 98 07/19/23 04:30 57 L 18 195/102 H 97 07/19/23 04:20 49 L 10 L 96 07/19/23 03:08 57 L 18 170/90 H 98 07/19/23 01:47 62 18 98 07/19/23 01:47 57 L 18 98 07/19/23 01:47 99 07/19/23 01:36 56 L 07/19/23 01:14 36.5 C 58 L 177/90 H 96 O2 Del Method 07/19/23 07:04 07/19/23 06:00 07/19/23 05:31 07/19/23 05:30 07/19/23 05:30 07/19/23 04:50 07/19/23 04:40 07/19/23 04:30 07/19/23 04:30 Room Air 07/19/23 04:20 07/19/23 03:08 07/19/23 01:47 Room Air 07/19/23 01:47 07/19/23 01:47 Room Air 07/19/23 01:36 07/19/23 01:14 Room Air Laboratory Results Cardiac Enzymes 07/19/23 07/19/23 Range/Units 01:32 07:23 AST 22 (13-39) U/L Troponin I High Sens 8.7 7.3 (0-20) pg/ml CBC 07/19/23 07/19/23 Range/Units 01:32 07:23 WBC 7.61 8.04 (4.8-10.8) K/ul RBC 4.36 L 4.38 L (4.70-6.10) M/uL Hgb 14.1 14.2 (14.0-18.0) g/dl Hct 41.0 L 41.2 L (42.0-52.0) % Plt Count 149 152 (130-400) K/uL Neut # (Auto) 4.44 5.54 (1.40-6.50) K/uL Lymph # (Auto) 2.37 1.88 (1.20-3.40) K/uL [place] # (Auto) 0.47 0.45 (0.11-0.59) K/uL Eos # (Auto) 0.26 0.13 (0.00-0.50) K/uL Baso # (Auto) 0.03 0.02 (0.00-0.20) K/uL Comprehensive Metabolic Panel 07/19/23 07/19/23 Range/Units 01:32 07:23 Sodium 142 140 (136-145) mmol/L Potassium 3.3 L 4.0 D (3.5-5.1) mmol/L Chloride 110 H 109 H (98-107) mmol/L Carbon Dioxide 26 25 (21-32) mmol/L BUN 19 16 (6-23) mg/dl Creatinine 1.13 1.04 (0.6-1.4) mg/dl Glucose 124 H 126 H (70-99(Fasting)) mg/dl Calcium 9.3 9.3 (8.6-10.3) mg/dl AST 22 (13-39) U/L ALT 27 (7-52) U/L Alkaline Phosphatase 69 (34-104) U/L Total Protein 6.3 (6.0-8.3) gm/dl Albumin 4.1 (3.4-5.0) gm/dl Intake and Output 07/18/23 07/19/23 07/19/23 22:59 06:59 14:59 Other: Weight 101.3 kg 101.3 kg Weight Measurement Method Built in Bedscale Built in Bedscale Patient Weight 07/20/23 06:59 Weight 101.3 kg (4) Hypertension Hypertension type: primary hypertension Qualified Code(s): I10 - Essential (primary) hypertension
[2023-07-19] MEDS: SODIUM CHLORIDE 0.9% 1,000 ML IV SCH (07:26)
[2023-07-19 07:39] LABS: Basophils # (auto) 0.02 K/uL (0.00-0.20); Basophils % (auto) 0.2 %; Eosinophils # (auto) 0.13 K/uL (0.00-0.50); Eosinophils % (auto) 1.6 %; Hematocrit (blood only) 41.2 % (42.0-52.0); Hemoglobin 14.2 g/dl (14.0-18.0); Immature Granulocytes # (auto) 0.02 K/uL (0.01-0.20); Immature Granulocytes % (auto) 0.2 %; Lymphocytes # (auto) 1.88 K/uL (1.20-3.40); Lymphocytes % (auto) 23.4 %; Mean Corpuscular Hemoglobin 32.4 pg (25.0-34.0); Mean Corpuscular Hgb Conc 34.5 g/dL (32.0-36.0); Mean Corpuscular Volume 94.1 fL (80.0-100.0); Mean Platelet Volume 9.9 fL (9.4-12.4); Monocytes # (auto) 0.45 K/uL (0.11-0.59); Monocytes % (auto) 5.6 %; Neutrophils # (auto) 5.54 K/uL (1.40-6.50); Platelet Count 152 K/uL (130-400); RDW Coefficient of Variation 13.4 % (11.5-14.5); RDW Standard Deviation 46.6 fL (36.4-46.3); Red Blood Count 4.38 M/uL (4.70-6.10); White Blood Count 8.04 K/ul (4.8-10.8)
[2023-07-19 07:55] LABS: BUN Creatinine Ratio 15.4 (10-20); Calcium 9.3 mg/dl (8.6-10.3); Creatinine Clr Calc Pharmacy 68.6 ml/min; Est GFR (African American) 79.9 ml/min; Est GFR (Non-African American) 68.9 ml/min; Magnesium 1.5 mg/dl (1.7-2.4)
[2023-07-19 08:07] LABS: Troponin I High Sensitivity 7.3 pg/ml (0-20)
[2023-07-19] MEDS: FELODIPINE 5 MG TABCR PO SCH (08:32)
[2023-07-19] MEDS: GLUCOSAMINE SULFATE 500 MG CAP PO SCH (08:32)
[2023-07-19] MEDS: ASPIRIN 325 MG ECTAB PO SCH (08:32)
[2023-07-19] MEDS: LISINOPRIL/HCTZ 10/12.5MG TAB PO SCH (08:32)
[2023-07-19] MEDS: MULTIVITAMIN TAB PO SCH (08:32)
--- OUTSIDE RECORDS SUMMARY | 2023-07-19 08:35 | External Medical Summary | Summary of Care ---
Author Name Unknown Organization [facility] Address [address] [facility] [place] [address] Phone [phone] Care Team Providers Care Oiler Bander Name Role Phone Facundo Mcgill Primary Care Provider Encounter Details Date Type Department Care Team (Late st Contact Info) Description 05/10/2023 Telephone Family Practice [facility] [address] [place] [address] Gem Herzog CRNP [address] [place] [address] Allergies No known active allergiesdocumented as of this encounter (statuses as of 05/11/2023) Medications Medication Sig Dispensed Refills Start Date End Date Status MULTIVITAMINS PO TABS None Entered 0 A ctive OSTEO BI-FLEX JOINT SHIELD PO TABS None Entered 0 Active aspirin 325 MG Tablet Take 1 Tablet by mouth in the morning. 0 Active Lisinopril-hydroCHLOR Othiazide 10-12.5 MG Oral TabletIndications:HTN , goal below 130/80 Take 1 Tablet by mouth in the morning. 90 Tablet 3 10/21/2022 Active Atorvastatin Calcium 40 MG Oral Tablet (Lipitor)Indications: Dyslipidemia, goal LDL below 100 Take 1 Tablet by mouth in the morning. 90 Tablet 3 12/28/2022 Active Felodipine ER 5 MG Oral Tablet Extended Release 24 Hour (Plendil)Indications: HTN, goal below 130/80 Take 1 tablet by mouth once daily 90 Tablet 3 01/19/2023 Active documented as of this encounter (statuses as of 05/11/2023) Active Problems Problem Noted Date Diagnosed Date Dyslipidemia 10/02/2021 Proteinuria 10/02/2021 Prediabetes 08/14/2018 Overview: Per Prediabetes protocol #1 History of kidney stones 07/28/2018 Irritable colon 10/25/2016 Hx of transient ischemic attack (TIA) 10/25/2016 BPH without obstruction/lower urinary tract symp toms 02/11/2014 Dyslipidemia, goal LDL below 100 10/11/2013 Obesity, Class I, BMI 30.0-34.9 (see actual BMI) 05/30/2012 Eczema 11/23/2011 HTN, goal below 130/80 05/28/2010 documented as of this encounter (statuses as of 05/11/2023) Resolved Problems Problem Noted Date Diagnosed Date Resolved Date Weak urinary stream 05/18/2013 10/26/19 17 Renal calculus 11/14/2012 07/28/2018 TIA (transient ischemic attack) 05/28/2010 10/25/2016 Obesity, Class II, BMI 35-39 .9, isolated (see actual BMI) 05/28/2010 05/30/2012 documented as of this encounter (statuses as of 05/11/2023) Immunizations Name Administration Dates Next Due COVID-19 mRNA, LNP-s, No Pre serve, 2-Dose Series (VOZ) 08/06/2020,07/16/2020 DTP Vaccine 10/06/2013 Pneumococcal Conjugate Vacc, 13 Valent (Prevnar) 02/19/2015 Pneumococcal Polysaccharide PPV23 (Pneumovax) Season Influenza, Quad, PF, Adjuvanted, 65+ Yrs, IM (FLUAD) 05/12/2020 Seasonal Influenza, PF, 6 M & above, IM , (FluLaval or Fluzone) 01/10/2018,04/28/2017 Seasonal Influenza, Quadrivalent Hd (Fluzone Hd) 12/24/2022,12/23/2021 Seasonal Influenza, Quadrivalent, No Preserve, I M 02/19/2015 Seasonal Influenza, Split, IIV3, With Preserve, Inj 02/12/2011 Seasonal Influenza, Trivalent, Adjuvanted, 65+ y rs 02/08/2019 TD, Preservative Free 10/09/2010 TDAP (age 10 and older)(Boostrix) 10/06/2013 Varicella Zoster Vaccine (Adult) 11/18/2010 Zoster Vaccine Recombinant (Shingrix) 09/24/2019 ,06/08/2019 documented as of this encounter Social History Tobacco Use Types Packs/Day Years Used Date Smoking Tobacco: Former Cigarettes 0.5 22 Q uit: 04/04/1990 Smokeless Tobacco: Former Snuff Quit: 04/04/1990 Comments:for a few years Alcohol Use Standard Drinks/Week Comments Yes 2 (1 standard drink = 0.6 oz pur e alcohol) PHQ-2 Answer Date Recorded PHQ Adult Total Score 0 12/24/2022 Hunger Vital Sign Answer Date Recorded Within the past 12 months, y ou worried that your food would run out before you got the money to buy more. Never true 12/24/19 22 Within the past 12 months, t he food you bought just didn't last and you didn't have money to get more. Never true 12/23/2021 Sex and Gender Information Value Date Recorded Sex Assigned at Male 05/11/2019 10:27 AM EST Gender Identity Male 05/11/2019 10:27 AM EST Sexual Orientation Straight 05/11/2019 10 :27 AM EST Job Start Date Occupation Industry Not on file Not on file Not on file documented as of this encounter Miscellaneous Notes * Telephone Encounter - Chuyita Griffin MED ASSIST - 05/11/2023 11:30 AM EST Patient informed. * Telephone Encounter - Gem Herzog CRNP - 05/10/2023 9:02 PM EST Recent labs show stable A1C (still prediabetes) at 6.3% however kidney labs look a little worse. Itlooks like he may have been dehydrated so would recommend rechecking this in the next 1-2 weeks andmaking sure that he hydrates well in the days before the test (aim for 60oz water daily). Repeat BMP is ordered for him -- he does not need to eb fasting documented in this encounter Plan of Treatment Upcoming Encounters Date Type Department Care Team (Late st Contact Info) Description 10/27/2023 10:00 AM EDT Office Visit Family Practice [facility] [address] [place] [address] Facundo Mcgill DO [address] [place] [address] 12/26/2023 10:30 AM EDT Nurse Only Ancillary [facility] [address] [place] [address] [facility], Nurse Annual Wellness [facility] [address] [place] [address] Scheduled Orders Name Type Priority Associated Diagnoses Orde r Schedule BASIC METABOLIC PANEL Lab Routine Elevated serum creatinine Expected: 05/10/2023 (Approximate), Expires: 05/09/2024 Health Maintenance Due Date Last Done Comments COVID-19 Vaccine (3 - 2022- season) 2022 08/06/2020, 07/16/2020 DTaP,Tdap,and Td Vaccines (3 - Td or Tdap) 10/07/2023 10/06/2013, 10/06/2013, 10/09/2010 Depression Screening 12/25/2023 12/24/2022 GFR 05/03/2024 05/03/2023, 10/03, 10/02/2021, Additional history exists HbA1c 05/03/2024 05/03/2023, 10/03, 10/02/2021, Additional history exists Albumin/Creatinine Ratio 10/02/2024 022, 12/29/2020, 05/19/2020, Additional history exists Pneumococcal Vaccine: 65+ Years Completed 02/19/2015, 10/09/2010 Zoster Vaccines Completed 09/24/2019, 0309/2019, 11/18/2010 Influenza Vaccine (FLU shot) Completed , 12/23/2021, 05/12/2020, Additional history exists GARDASIL-HPV IMMUNIZATION SERIES Aged Out No longer eligible based on patient's age to complete this topic Hepatitis B Aged Out No longer eligi ble based on patient's age to complete this topic MENINGOCOCCAL (MENACTRA/MENVEO) Aged Out No longer eligible based on patient's age to complete this topic documented as of this encounter Medical Devices Not on filedocumented as of this encounter Visit Diagnoses Diagnosis Elevated serum creatinine- Primary Other nonspecific findings on examination of blood documented in this encounter Advance Directives Latest Code Status on File Code Status Date Activated Date Inactivated Comments Full Code 01/20/2018 11:03 AM 01/20/2018 5:48 PM Th is order reflects the patients wishes and were consensually agreed upon. Code Status History Code Status Date Activated Date Inactivated Comments Full Code 01/13/2018 11:44 AM 01/13/2018 6:22 PM Th is order reflects the patients wishes and were consensually agreed upon. Care Teams Oiler Bander Relationship Specialty Start Date End Date Facundo Mcgill DO [address] [place] [phone] PCP - General Family Medicine 11/07/17 documented as of this encounter
--- OUTSIDE RECORDS SUMMARY | 2023-07-19 08:35 | External Medical Summary | Summary of Care ---
Author Name Unknown Organization [facility] Address [address] [facility] [place] [address] Phone [phone] Care Team Providers Care [employer] Labourer Name Role Phone Facundo Mcgill Primary Care Provider Reason for Visit * Reason Comments Outpatient Testing Encounter Details Date Type Department Care Team (Late st Contact Info) Description 05/03/2023 2:40 PM EST Laboratory Laboratory, [facility] [address] [facility] [place] [address] [facility] [address] [facility] [place] [address] Prediabetes; HTN, goal below 130/80 Allergies No known active allergiesdocumented as of this encounter (statuses as of 05/03/2023) Medications Medication Sig Dispensed Refills Start Date [...] as of this encounter (statuses as of 05/03/2023) Active Problems Problem Noted Date Diagnosed Date [...] as of this encounter (statuses as of 05/03/2023) Resolved Problems Problem Noted Date Diagnosed Date Resolved Date Weak urinary stream 05/18/2013 10/26/19 17 Renal calculus 11/14/2012 07/28/2018 TIA (transient ischemic attack) 05/28/2010 10/25/2016 Obesity, Class II, BMI 35-39 .9, isolated (see actual BMI) 05/28/2010 05/30/2012 documented as of this encounter (statuses as of 05/03/2023) Immunizations Name Administration Dates Next Due COVID-19 mRNA, LNP-s, No Pre serve, 2-Dose Series (Paybubble) 08/06/2020,07/16/2020 DTP Vaccine 10/06/2013 Pneumococcal Conjugate Vacc, [...] on file documented as of this encounter Plan of Treatment Upcoming Encounters Date Type Department Care Team (Late st Contact Info) Description 10/27/2023 10:00 AM EDT Office Visit Family Practice [facility] [address] [place] [phone] Facundo Mcgill DO [address] [place] [address] 12/26/2023 10:30 AM EDT Nurse Only Ancillary [facility] [address] [place] [phone] Aaron, Nurse Annual Wellness [facility] [address] [place] [address] Pending Results Name Type Priority Associated Diagnoses Date /Time HEMOGLOBIN A1C Lab Routine Prediabetes 05/03/2023 1:25 PM EST COMPREHENSIVE METABOLIC PANEL Lab Routine HTN, goal below 130/80 05/03/2023 1:25 PM EST Health Maintenance Due Date Last Done Comments COVID-19 Vaccine (3 - season) 2022 08/06/2020, 07/16/2020 DTaP,Tdap,and Td Vaccines (3 - Td or Tdap) 10/07/2023 10/06/2013, 10/06/2013, 10/09/2010 GFR 10/22/2023 10/21/2022, 07/0 04/2021, 12/29/2020, Additional history exists HbA1c 10/22/2023 10/21/2022, 07/0 04/2021, 12/29/2020, Additional history exists Depression Screening 12/25/2023 12/24/2022 Albumin/Creatinine Ratio 10/02/2024 022, 12/29/2020, 05/19/2020, Additional history exists Pneumococcal Vaccine: 65+ Years Completed 02/19/2015, 10/09/2010 Zoster Vaccines Completed 09/24/2019, 030 09/2019, 11/18/2010 Influenza Vaccine (FLU shot) Completed , [...] as of this encounter Visit Diagnoses Diagnosis Prediabetes Other abnormal glucose HTN, goal below 130/80 Unspecified essential hypertension documented in this encounter Advance Directives Latest [...] and were consensually agreed upon. Care Teams [employer] Labourer Relationship Specialty Start Date End Date Facundo Mcgill DO [address] [place] [phone] PCP - General Family Medicine 11/07/17 documented as of this encounter
--- OUTSIDE RECORDS SUMMARY | 2023-07-19 08:35 | External Medical Summary | Summary of Care ---
Author Name Unknown Organization [facility] Address [address] [facility] [place] [address] Phone [phone] Care Team Providers Care Garment Sewer Hand Name Role Phone Facundo Mcgill Primary Care Provider Reason for Visit * Reason Comments Outpatient Testing Encounter Details Date Type Department Care Team (Late st Contact Info) Description 05/13/2023 11:30 AM EST Laboratory Laboratory [facility] [address] [place] [address] [facility] [address] [facility] [place] [address] Elevated serum creatinine Allergies No known active allergiesdocumented as of this encounter (statuses as of 05/13/2023) Medications Medication Sig Dispensed Refills Start Date [...] as of this encounter (statuses as of 05/13/2023) Active Problems Problem Noted Date Diagnosed Date [...] as of this encounter (statuses as of 05/13/2023) Resolved Problems Problem Noted Date Diagnosed Date Resolved Date Weak urinary stream 05/18/2013 10/26/19 17 Renal calculus 11/14/2012 07/28/2018 TIA (transient ischemic attack) 05/28/2010 10/25/2016 Obesity, Class II, BMI 35-39 .9, isolated (see actual BMI) 05/28/2010 05/30/2012 documented as of this encounter (statuses as of 05/13/2023) Immunizations Name Administration Dates Next Due COVID-19 mRNA, LNP-s, No Pre serve, 2-Dose Series ([employer]) 08/06/2020,07/16/2020 DTP Vaccine 10/06/2013 Pneumococcal Conjugate Vacc, [...] 10:00 AM EDT Office Visit Family Practice [facility] [address] [address] Facundo Mcgill DO [address] [place] [address] 12/26/2023 10:30 AM EDT Nurse Only Ancillary [facility] [address] [place] [address] Aaron Nurse Annual Wellness [email or web address] [address] [place] [phone] Pending Results Name Type Priority Associated Diagnoses Date /Time BASIC METABOLIC PANEL Lab Routine Elevated serum creatinine 05/13/2023 11:35 AM EST Health Maintenance Due Date Last Done Comments COVID-19 Vaccine ( season) 2022 08/06/2020, 07/16/2020 DTaP,Tdap,and Td Vaccines (3 - Td or Tdap) 10/07/2023 10/06/2013, 10/06/2013, 10/09/2010 Depression Screening 12/25/2023 12/24/2022 GFR 05/03/2024 05/03/2023, 10/03, 10/02/2021, Additional history exists HbA1c 05/03/2024 05/03/2023, 10/03, 10/02/2021, Additional history exists Albumin/Creatinine Ratio 10/02/2024 022, 12/29/2020, 05/19/2020, Additional history exists Pneumococcal Vaccine: 65+ Years Completed 02/19/2015, 10/09/2010 Zoster Vaccines Completed 09/24/2019, 09/2019, 11/18/2010 Influenza Vaccine (FLU shot) Completed [...] this encounter Visit Diagnoses Diagnosis Elevated serum creatinine Other nonspecific findings on examination of blood [...] and were consensually agreed upon. Care Teams Garment Sewer Hand Relationship Specialty Start Date End Date Facundo Mcgill DO [address] [place] [address] PCP - General Family Medicine 11/07/17 documented as of this encounter
--- OUTSIDE RECORDS SUMMARY | 2023-07-19 08:35 | External Medical Summary ---
Author Name Unknown Address Unknown Organization [id number]:LABORATORY [facility] - [facility] [address] [facility] [address] Laboratory Report Ordering Provider Test Date Status OLAMIDE NUNEZ 05/03/2023 13:25:00 Final Observation Date Value Abnormality Reference (Units ) Status HbA1C 05/03/2023 13:25:00 6.3 Above high normal 4. 0-5.6 (%) Final The use of HbA1c to monitor glycemic status is based on normal hemoglobin and HbA composition. This test should not be used in patients with abnormal hemoglobin that affects the half life of the red blood cell or the in vivo glycation rates. Glucose, estimated average 05/03/2023 13:25:00 134 Above high normal <126 (mg/dL) Burke snider Performing Location LABORATORY [facility] - [address] [facility] [address] [facility] [address]
--- OUTSIDE RECORDS SUMMARY | 2023-07-19 08:35 | External Medical Summary | Summary of Care ---
Author Name Unknown Organization [facility] Address [address] [address] [place] [address] Phone [phone] Care Team Providers Care Food Service Tray Attendant Name Role Phone Facundo Mcgill Primary Care Provider Encounter Details Date Type Department Care Team (Late st Contact Info) Description 06/13/2023 Result Scan Unspecified Department <No scans attached> Allergies No known active allergiesdocumented as of this encounter (statuses as of 06/15/2023) Medications Medication Sig Dispensed Refills Start Date [...] as of this encounter (statuses as of 06/15/2023) Active Problems Problem Noted Date Diagnosed Date [...] as of this encounter (statuses as of 06/15/2023) Resolved Problems Problem Noted Date Diagnosed Date Resolved Date Weak urinary stream 05/18/2013 10/26/19 17 Renal calculus 11/14/2012 07/28/2018 TIA (transient ischemic attack) 05/28/2010 10/25/2016 Obesity, Class II, BMI 35-39 .9, isolated (see actual BMI) 05/28/2010 05/30/2012 documented as of this encounter (statuses as of 06/15/2023) Immunizations Name Administration Dates Next Due COVID-19 mRNA, LNP-s, No Pre serve, 2-Dose Series ([employer]) 08/06/2020,07/16/2020 DTP Vaccine 10/06/2013 Pneumococcal Conjugate Vacc, [...] Date Smoking Tobacco: Former Cigarettes 0.5 22 0 04/04/1968 - 04/04/1990 Smokeless Tobacco: Former Snuff Quit: 04/04/1990 [...] 10:00 AM EDT Office Visit Family Practice [facility] [address] [address] Facundo Mcgill DO [address] [place] [address] 12/26/2023 10:30 AM EDT Nurse Only Ancillary [facility] [address] [address] Aaron, Nurse Annual Wellness [facility] [address] [place] [address] [address] Health Maintenance Due Date Last Done Comments COVID-19 Vaccine (3 - 2022- season) 2022 08/06/2020, 07/16/2020 DTaP,Tdap,and Td Vaccines (3 - Td or Tdap) 10/07/2023 10/06/2013, 10/06/2013, 10/09/2010 Depression Screening 12/25/2023 12/24/2022 HbA1c 05/03/2024 05/03/2023, 10/03, 10/02/2021, Additional history exists GFR 05/13/2024 05/13/2023, 04/06, 10/21/2022, Additional history exists Albumin/Creatinine Ratio 10/02/2024 022, [...] Not on filedocumented as of this encounter Procedures Procedure Name Priority Date/Time Associated Diagnosis Comments OUTSIDE LAB RESULTS 06/13/2023 documented in this encounter Results * OUTSIDE LAB RESULTS (06/13/2023) 06/13/2023 No Physician Data Unknown LABORATORY documented in this encounter Advance Directives Latest [...] and were consensually agreed upon. Care Teams Food Service Tray Attendant Relationship Specialty Start Date End Date Facundo Mcgill DO [address] [place] [address] PCP - General Family Medicine 11/07/17 documented as of this encounter
--- OUTSIDE RECORDS SUMMARY | 2023-07-19 08:35 | External Medical Summary | Summary of Care ---
Author Name Unknown Organization [facility] Address [address] [place] [address] Phone [phone] Care Team Providers Care Television Announcer Name Role Phone Facundo Mcgill Primary Care Provider Reason for Visit * Reason Comments Re-Check Encounter Details Date Type Department Care Team (Late st Contact Info) Description 05/03/2023 1:00 PM EST Office Visit Family Practice [facility] [address] [place] [address] Gem Herzog CRNP [address] [place] [address] Encounter for long-term (current) use of medications*; HTN, goal below 130/80; Prediabetes; Dyslipidemia; BPH without obstruction/lower urinary tract symptoms; Obesity, Class I, BMI 30.0-34.9 (see actual BMI) Allergies No known active allergiesdocumented as of this encounter (statuses as of 05/12/2023) Medications Medication Sig Dispensed Refills Start Date [...] as of this encounter (statuses as of 05/12/2023) Active Problems Problem Noted Date Diagnosed Date [...] as of this encounter (statuses as of 05/12/2023) Resolved Problems Problem Noted Date Diagnosed Date Resolved Date Weak urinary stream 05/18/2013 10/26/19 17 Renal calculus 11/14/2012 07/28/2018 TIA (transient ischemic attack) 05/28/2010 10/25/2016 Obesity, Class II, BMI 35-39 .9, isolated (see actual BMI) 05/28/2010 05/30/2012 documented as of this encounter (statuses as of 05/12/2023) Immunizations Name Administration Dates Next Due COVID-19 mRNA, LNP-s, No Pre serve, 2-Dose Series ([employer]) 08/06/2020,07/16/2020 DTP Vaccine 10/06/2013 Pneumococcal Conjugate Vacc, [...] on file documented as of this encounter Last Filed Vital Signs Vital Sign Reading Time Taken Comments Blood Pressure 122/70 05/03/2023 12:51 PM EST Pulse 72 05/03/2023 12:51 PM EST Temperature - - Respiratory Rate - - Oxygen Saturation - - Inhaled Oxygen Concentration - - Weight 97.6 kg (215 lb 3 oz) 05/03/2023 12:51 PM EST Height - - Body Mass Index 32.72 12/24/2022 10:55 AM EDT documented in this encounter Progress Notes * Gem Herzog CRNP - 05/03/2023 1:04 PM EST Images from the original note were not included. History of Present Illness Freddy Neil is a 77 year old male that presents for Re-Check HPI Here in routine follow up Doing well Compliant with medications Due for labs Outpatient Medications Marked as Taking for the 05/03/23 encounter (Office Visit) with Gem Herzog CRNP Medication Sig Felodipine ER 5 MG Oral Tablet Extended Release 24 Hour (Plendil) Take 1 tablet by mouth once daily Atorvastatin Calcium 40 MG Oral Tablet (Lipitor) Take 1 Tablet by mouth in the morning. Lisinopril-hydroCHLOROthiazide 10-12.5 MG Oral Tablet Take 1 Tablet by mouth in the morning. aspirin 325 MG Tablet Take 1 Tablet by mouth in the morning. MULTIVITAMINS PO TABS None Entered OSTEO BI-FLEX JOINT SHIELD PO TABS None Entered Physical Exam Vitals: 05/03/23 1251 Pulse: 72 BP: 122/70 Physical Exam Vitals reviewed. Constitutional: Appearance: Normal appearance. HENT: Head: Normocephalic and atraumatic. Right Ear: Tympanic membrane, ear canal and external ear normal. Left Ear: Tympanic membrane, ear canal and external ear normal. Nose: Nose normal. Mouth/Throat: Mouth: Mucous membranes are moist. Eyes: Extraocular Movements: Extraocular movements intact. Conjunctiva/sclera: Conjunctivae normal. Pupils: Pupils are equal, round, and reactive to light. Cardiovascular: Rate and Rhythm: Normal rate and regular rhythm. Heart sounds: Normal heart sounds. Pulmonary: Effort: Pulmonary effort is normal. Breath sounds: Normal breath sounds. Abdominal: General: There is no distension. Palpations: Abdomen is soft. Tenderness: There is no abdominal tenderness. Musculoskeletal: Cervical back: Neck supple. Right lower leg: No edema. Left lower leg: No edema. Lymphadenopathy: Cervical: No cervical adenopathy. Skin: General: Skin is warm and dry. Capillary Refill: Capillary refill takes less than 2 seconds. Neurological: Mental Status: He is alert and oriented to person, place, and time. Psychiatric: Behavior: Behavior normal. Thought Content: Thought content normal. Assessment and Plan Encounter for long-term (current) use of medications Discussed relevant health maintenance topics HTN, goal below 130/80 - COMPREHENSIVE METABOLIC PANEL; Future Prediabetes - HEMOGLOBIN A1C; Future Dyslipidemia stable BPH without obstruction/lower urinary tract symptoms stable Obesity, Class I, BMI 30.0-34.9 (see actual BMI) Advise diet/lifestyle improvements Wrap-Up Follow Up: Return if symptoms worsen or fail to improve, for Labs Today. | For: Labs Today | Check-out note: As scheduled with PCP Time: I spent a total of 30-39 minutes (exact time 30 mins) on the date of service in preparation, delivery, and documentation of the care provided to Freddy Neil excluding any time spent in the performance of separately billed services. documented in this encounter Plan of Treatment Upcoming Encounters Date Type Department Care Team (Late st Contact Info) Description 10/27/2023 10:00 AM EDT Office Visit Family Practice [facility] [address] [place] [address] Facundo Mcgill DO [address] [place] [address] 12/26/2023 10:30 AM EDT Nurse Only Ancillary [facility] [address] [place] [address] [facility], Nurse Annual Wellness [facility] [address] [place] [address] Health Maintenance Due Date Last Done Comments [...] Completed 02/19/2015, 10/09/2010 Zoster Vaccines Completed 09/24/2019, 03/0 09/2019, 11/18/2010 Influenza Vaccine (FLU shot) Completed [...] Not on filedocumented as of this encounter Results * (ABNORMAL) COMPREHENSIVE METABOLIC PANEL (05/03/2023 1:25 PM EST) BUN 29(H) 6 - 20 mg/dL 05/03/2023 3:39 PM EST LABORATORY [place] [facility] Creatinine 1.3(H) 0.6 - 1.2 mg/dL 05/03/2023 3:39 PM EST LABORATORY [place] [facility] Estimated Glomerular Filtration Rate 57(L) >=60 mL/min 05/03/2023 3:39 PM EST LABORATORY [place] [facility]10 Comment:eGFR is calculated b ased on the CKD-EPI 2020 equation Sodium 142 135 - 146 mmol/L 05/03/2023 3:39 PM EST LABORATORY [place] [facility] Potassium 4.4 3.5 - 5.1 mmol/L 05/03/2023 3:39 PM EST LABORATORY [place] [facility] Chloride 105 98 - 107 mmol/L 05/03/2023 3:39 PM EST LAB[facility]ATORY [place] [facility] CO2 23 22 - 32 mmol/L 05/03/2023 3:39 PM EST LABORATORY [place] [facility] Anion Gap 14 7 - 15 mmol/L 05/03/2023 3:39 PM EST LAB[facility]ATORY [place] [facility] Glucose 133(H) 70 - 120 mg/dL 05/03/2023 3:39 PM EST LAB[facility]ATORY [place] [facility] Albumin 4.7 3.8 - 5.0 g/dL 05/03/2023 3:39 PM EST LAB[facility]ATORY [place] [facility] AST 27 10 - 50 U/L 05/03/2023 3:39 PM EST LAB[facility]ATORY [place] [facility] Alkaline Phosphatase 78 35 - 130 U/L 05/03/2023 3:39 PM EST LAB[facility]ATORY [place] [facility] Bilirubin, Total 0.5 <=1.2 mg/dL 05/03/2023 3:39 PM EST [facility] Calcium 10.0 8.4 - 10.2 mg/dL 05/03/2023 3:39 PM EST [facility] Protein 6.7 6.0 - 8.3 g/dL 05/03/2023 3:39 PM EST LABORATORY [place] [facility]10 ALT 39 10 - 50 U/L 05/03/2023 3:39 PM EST LAB[facility]ATORY [place] [facility]10 Blood Venous blood specimen / Unknown Venipuncture / Unknown 05/03/2023 1:25 PM EST 05/03/2023 1:25 PM EST Gem LEMON LAB BLOOD ORDERABL ES Performing Organization Address City/[facility] Co de Phone Number LABORATORY [place] [phone] [place] [address] * (ABNORMAL) HEMOGLOBIN A1C (05/03/2023 1:25 PM EST) Hemoglobin A1C 6.3(H) 4.0 - 5.6 % 05/03/2023 7:16 PM EST LABORATORY [facility] Comment:The use of HbA1c to monitor glycemic status is based on normal hemoglobin and HbA composition. This test should not be used in patients with abnormal hemoglobin that affects the half life of the red blood cell or the in vivo glycation rates. Estimated Average Glucose 134(H) <126 mg/dL 05/03/2023 7:16 PM EST LABORATORY [facility] Blood Venous blood specimen / Unknown Venipuncture / Unknown 05/03/2023 1:25 PM EST 05/03/2023 1:25 PM EST Gem LEMON LAB BLOOD ORDERABL ES LABORATORY [facility] [address] [facility] [place] [address] documented in this encounter Visit Diagnoses Diagnosis Encounter for long-term (current) use of medications- Primary Encounter for long-term (current) use of other medications HTN, goal below 130/80 Unspecified essential hypertension Prediabetes Other abnormal glucose Dyslipidemia Other and unspecified hyperlipidemia BPH without obstruction/lower urinary tract symptoms Hypertrophy of prostate without urinary obstruction and other lower urinary tract symptoms (LUTS) Obesity, Class I, BMI 30.0-34.9 (see actual BMI) Obesity, unspecified documented in this encounter Advance Directives Latest [...] and were consensually agreed upon. Care Teams Television Announcer Relationship Specialty Start Date End Date Facundo Mcgill DO [address] [place] [address] PCP - General Family Medicine 11/07/17 documented as of this encounter"
--- OUTSIDE RECORDS SUMMARY | 2023-07-19 08:35 | External Medical Summary ---
Author Name Unknown Address Unknown Organization [id number]:LABORATORY [place] [place] - [address] [place] [address] Laboratory Report Ordering Provider Test Date Status OLAMIDE NUNEZ 05/03/2023 13:25:00 Final Observation Date Value Abnormality Reference (Units ) Status BUN 05/03/2023 13:25:00 29 Above high normal 6-20 (mg/dL) Final Creatinine 05/03/2023 13:25:00 1.3 Above high normal 0.6-1.2 (mg/dL) Final Glomerular filtration rate/1.73 sq M.predicted [Volume Rate/Area] in Serum, Plasma or Blood by Creatinine-based formula (CKD-EPI) 05/03/2023 13:25:00 57 Below low normal >=60 (mL/min) Final eGFR is calculated based on the CKD-EPI 2020 equation SODIUM 05/03/2023 13:25:00 142 135-146 (m mol/L) Final Potassium 05/03/2023 13:25:00 4.4 3.5-5.1 (m mol/L) Final Cl 05/03/2023 13:25:00 105 98-107 (mm ol/L) Final CO2 05/03/2023 13:25:00 23 22-32 (mmo l/L) Final Anion gap 05/03/2023 13:25:00 14 7-15 (mmol /L) Final Glucose 05/03/2023 13:25:00 133 Above high normal 70 -120 (mg/dL) Final Albumin 05/03/2023 13:25:00 4.7 3.8-5.0 (g /dL) Final AST (Aspartate aminotransferase) 05/03/2023 13:25:00 27 10-50 (U/L) Fin al Alk Phos 05/03/2023 13:25:00 78 35-130 (U/ L) Final Bilirubin, Total 05/03/2023 13:25:00 0.5 <=1 .2 (mg/dL) Final Calcium 05/03/2023 13:25:00 10.0 8.4-10.2 ( mg/dL) Final Protein 05/03/2023 13:25:00 6.7 6.0-8.3 (g /dL) Final ALT (Alanine aminotransferase) 05/03/2023 13:25:00 39 10-50 (U/L) Burke snider Performing Location LABORATORY [place] [facility] 0 - [address] [facility] [place] [address]
--- OUTSIDE RECORDS SUMMARY | 2023-07-19 08:35 | External Medical Summary ---
Author Name Unknown Address Unknown Organization K09:LABORATORY [address] [place] [address] Laboratory Report Ordering Provider Test Date Status OLAMIDE NUNEZ 05/13/2023 11:35:43 Final Observation Date Value Abnormality Reference (Units ) Status BUN 05/13/2023 11:35:43 15 6-20 (mg/dL) Final Creatinine 05/13/2023 11:35:43 1.0 0.6-1.2 (mg/dL) Final Glomerular filtration rate/1.73 sq M.predicted [Volume Rate/Area] in Serum, Plasma or Blood by Creatinine-based formula (CKD-EPI) 05/13/2023 11:35:43 74 >=60 (mL/min) Final eGFR is calculated based on the CKD-EPI 2020 equation SODIUM 05/13/2023 11:35:43 140 135-146 (m mol/L) Final Potassium 05/13/2023 11:35:43 3.9 3.5-5.1 (m mol/L) Final Cl 05/13/2023 11:35:43 101 98-107 (mm ol/L) Final CO2 05/13/2023 11:35:43 26 22-32 (mmo l/L) Final Anion gap 05/13/2023 11:35:43 13 7-15 (mmol /L) Final Glucose 05/13/2023 11:35:43 112 70-120 (mg /dL) Final Calcium 05/13/2023 11:35:43 9.9 8.4-10.2 ( mg/dL) Final Performing Location LAB[address]ATORY [place] [address]
[2023-07-19] MEDS: MAGNESIUM SULFATE / D5W 1 GM/100 ML BAG IV SCH (08:40)
[2023-07-19] MEDS: GADOBUTROL 65ML VIAL IV ONE (09:01)
--- NOTE | 2023-07-19 10:04 | Magnetic Resonance Report ---
MRI OF THE BRAIN WITHOUT AND WITH IV CONTRAST CLINICAL HISTORY: Dizziness. COMPARISON STUDY: Head CT and CTA of the head July 19, 2023. TECHNIQUE: Utilizing a 1.5 Shelly magnet and dedicated coil, multiplanar, multiecho imaging of the br ain was performed pre and postcontrast administration. IV administration of 10 mL of Gadavist contra st was uneventful. FINDINGS: There are no foci of restricted diffusion to suggest acute infarct. No acute intracranial h emorrhage, midline shift or mass effect is present. Ventricular system is unremarkable. Basal cistern s are patent. Flow-voids for the major intracranial vessels are present. Multiple white matter T2 hyp erintense foci suggest moderate small vessel disease. No intracranial mass or pathologic enhancement is present. A small mass measuring approximately 1 cm within the posterior medial left orbit is pavel r depicted on the orbit MRI. This will be reported separately. Calvarial signal is normal. No cerebel lopontine angle mass is identified on this exam. There is no mastoid effusion. IMPRESSION: 1. No acute intracranial findings. 2. No intracranial mass or pathologic enhancement. 3. Small left orbital mass measuring approximately 1 cm, better depicted on the orbit MRI which will be reported separately. ACT 112: Negative or not required by law. Electronically signed by: Edgardo Mao M.D. 07/19/2023 10:01 AM
--- NOTE | 2023-07-19 10:10 | Magnetic Resonance Report ---
MR orbit wo/w con CLINICAL HISTORY: orbit lesion on ct scan COMPARISON STUDY: Head CT July 19, 2023. TECHNIQUE: Utilizing a 1.5 Shelly magnet and dedicated coil, multiplanar, multi echo imaging of the or bits was performed pre and postcontrast administration. Intravenous injection of 10 cc of Gadavist wa s uneventful. FINDINGS: There is a 1.1 x 0.7 x 0.6 cm T2 hyperintense enhancing mass within the posterior medial le ft orbit, located between the inferior and medial rectus muscles. This corresponds to the mass on hea d CT of July 19, 2023. No additional orbital masses are identified. Superior ophthalmic veins are no t dilated. No optic nerve abnormality is identified. The globes are intact. There is mild ethmoid sin us mucosal thickening. Please note that the MRI of the brain will be reported separately. IMPRESSION: 1.1 cm T2 hyperintense enhancing mass within the posterior medial left orbit which corre sponds to the mass on CT of July 19, 2023. 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 A venous varix could appear similar. A follow-up MRI of the orbits in 6 months to ensure stability is recommended. ACT 112: Negative or not required by law. Electronically signed by: Edgardo Mao M.D. 07/19/2023 10:08 AM
--- NOTE | 2023-07-19 13:28 | Electrocardiogram Report ---
Test Reason : Blood Pressure : / mmHG Vent. Rate : 058 BPM Atrial Rate : 058 BPM P-R Int : 408 ms QRS Dur : 084 ms QT Int : 426 ms P-R-T Axes : 044 047 034 degrees QTc Int : 418 ms Sinus bradycardia with 1st degree A-V block Otherwise normal ECG When compared with ECG of 10-JUL-2012 16:57, NH interval has increased Confirmed by Peter Oliva ([id number]) on 07/19/2023 1:28:01 PM Referred By: REFERRED SELF Confirmed By:Alvaro Oliva
--- NOTE | 2023-07-19 13:48 | Electrocardiogram Report ---
Test Reason : Blood Pressure : / mmHG Vent. Rate : 052 BPM Atrial Rate : 052 BPM P-R Int : 440 ms QRS Dur : 090 ms QT Int : 434 ms P-R-T Axes : 050 054 037 degrees QTc Int : 403 ms Sinus bradycardia with marked sinus arrhythmia with 1st degree A-V block Otherwise normal ECG When compared with ECG of 19-JUL-2023 01:41, (unconfirmed) No significant change was found Confirmed by Peter Oliva ([id number] on 07/19/2023 1:48:05 PM Referred By: REFERRED SELF Confirmed By:Alvaro Oliva
[2023-07-19 15:26] LABS: Thyroid Stimulating Hormone 2.385 uIu/ml (0.300-4.500)
--- NOTE | 2023-07-19 18:09 | Hospitalist Progress Note ---
Date of Service July 19, 2023 Assessment & Plan (1) Dizziness: Plan: 77-year-old male with past medical history significant for dyslipidemia, prediabetes, hypertension, irritable colon, BPH, proteinuria, eczema, obesity, history of TIA, history of kidney stones presents with dizziness. Patient lives with his son. Ambulates without support. Around midnight when he woke up to go to the bathroom started feeling dizzy. Seems when he had dizziness in the past found to have TIA and prompted him to come to the ER. Currently dizziness resolved while resting. But when he tried to walk to the bathroom in the ER he felt dizzy. No room spinning. No nausea. No chest pain. No shortness of breath. No cough. No fevers. No headache. Vision is okay. No runny nose or sore throat. Appetite is okay. No difficulty swallowing. No abdominal pain. Normal bowel and bladder movements. Denies bloody or black stools . Dizziness and giddiness Seems to be cardiac with associated postural hypotension Doubt any neurological origin without any evidence of any neurological symptoms- neurology consult has been canceled after talking to the neurologist. Will check for orthostatic hypotension Monitor highly in the hospital Appreciate cardiology input and recommendation Relevant scans: CT head: soft tissue lesion in the medial left orbit measuring 15.2 x 11.3 x 9.4 mm. CTA head and neck unremarkable MRI of the brain with and without IV contrast showed-no acute intracranial findings, no intracranial mass or pathologic enhancement, small left orbital mass measuring approximately 1 cm better depicted on the orbit MRI which will be reported separately. Orbit MRI-1.1 cm T2 hyper intense enhancing mass within the posterior medial left orbit which corresponds to the mass 1 CT scan of July 18, 2013. 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 Venous varix could appear similar. Advised to have a follow-up MRI of the orbit in 6 months to ensure stability An ophthalmologic evaluation as an outpatient would be appropriate too Bradycardia [id number] AV block and type I second-degree atrioventricular block First-degree AV block on the technical director strips shows Mobitz type I heart block Pacer pads placed IV atropine as needed in case patient becomes symptomatic Serial cardiac enzymes and echo-are not supportive of any ACS Appreciate cardiology input and recommendation TSH is normal and Lyme screen has been negative Will check for nocturnal pulse oximetry Echo of the heart showed: Normal LV side, moderate concentric LVH, basal septum is thickened and angulated consistent with sigmoid pattern, L ventricular wall motion is normal, EF is 60 to 65%, grade 1 diastolic dysfunction, aortic valve sclerosis mild without significant aortic valve stenosis, mild mitral annular calcification, mild mitral regurgitation and mild tricuspid regurgitation No indications of pacemaker now Likely to need Zio patch on discharge Hypertension Elevated Continue home medications felodipine, lisinopril /hydrochlorothiazide Received a dose of p.o. hydralazine for elevated blood pressure Will monitor closely Hyperlipidemia On statin Follow lipid profile Prediabetes Follow HbA1c levels DVT prophylaxis Will give heparin SQ twice daily Disposition Telemetry Full code Admission and Anticipated Discharge Date Admission Date: July 19, 2023 Subjective 07/19/2023 The patient was seen and examined in emergency room in presence of the son He was brought in with acute dizziness that started when he was trying to go to bathroom at nighttime which persisted until he arrived in the emergency room Did not have any other associated symptoms with it Denies any chest pain, palpitation or any shortness of breath and no history of falls Has been feeling much better during my examination Review of Systems Review of Systems: All systems reviewed and are unremarkable except as noted below Physical Exam Physical Exam: Lying in bed comfortably Constitutional: well developed, well nourished and + obese; not ill appearing Eyes: PERRL, conjunctivae normal, anicteric sclerae ENMT: external ear and nose normal, oropharynx normal Neck: trachea midline, no thyromegaly Respiratory: no respiratory distress Auscultation: lungs clear to aus cultation bilaterally Cardiovascular: Rate/Rhythm: regular rate, regular rhythm and + bradycardic Heart Sounds: normal S1 and normal S2; no murmur Extremities: + edema (Trace edema bilaterally) Gastrointestinal (Abdomen): Inspection/Auscultation: normal bowel sounds; abdomen not distended Percussion/Palpation: abdomen soft; abdomen nontender Musculoskeletal: No acute arthritis involving any of the joint Neurologic: normal touch/pain/proprioception and moves all extremities; no focal motor deficits Psychiatric: A+Ox3, euthymic affect Lymphatic: no cervical or axillary lymphadenopathy Results & Data Results & Data Vital Signs (Past 12 Hours) Vital Signs Temp Pulse Pulse Resp BP BP Pulse Ox 07/19/23 17:30 55 L 19 151/93 H 97 07/19/23 17:00 52 L 16 162/97 H 96 07/19/23 16:30 60 17 164/93 H 98 07/19/23 16:00 59 L 22 169/96 H 96 07/19/23 16:00 61 07/19/23 15:00 61 15 149/86 H 96 07/19/23 14:30 62 17 154/104 H 97 07/19/23 11:40 71 17 156/97 H 96 07/19/23 10:46 07/19/23 10:40 51 L 18 97 07/19/23 10:31 64 20 97 07/19/23 10:31 163/86 H 07/19/23 10:30 61 22 96 07/19/23 10:20 51 L 20 96 07/19/23 10:10 62 20 96 07/19/23 10:00 143/88 H 97 07/19/23 09:45 174/93 H 07/19/23 08:30 61 18 176/101 H 97 07/19/23 08:21 64 25 H 178/130 H 96 07/19/23 08:21 36.9 C 64 22 178/130 H 97 07/19/23 08:00 65 18 176/105 H 98 07/19/23 07:31 56 L 17 150/101 H 98 07/19/23 07:04 63 07/19/23 07:00 52 L 14 167/96 H 98 07/19/23 06:30 55 L 11 L 169/105 H 97 07/19/23 06:00 62 18 162/98 H 98 Pulse Ox O2 Del Method O2 Del Method 07/19/23 17:30 Room Air 07/19/23 17:00 Room Air 07/19/23 16:30 07/19/23 16:00 Room Air 07/19/23 16:00 07/19/23 15:00 Room Air 07/19/23 14:30 Room Air 07/19/23 11:40 Room Air 07/19/23 10:46 95 Room Air 07/19/23 10:40 07/19/23 10:31 07/19/23 10:31 07/19/23 10:30 07/19/23 10:20 07/19/23 10:10 07/19/23 10:00 Room Air 07/19/23 09:45 07/19/23 08:30 Room Air 07/19/23 08:21 Room Air 07/19/23 08:21 Room Air 07/19/23 08:00 Room Air 07/19/23 07:31 Room Air 07/19/23 07:04 07/19/23 07:00 Room Air 07/19/23 06:30 Room Air 07/19/23 06:00 Laboratory Results Short CBC 07/19/23 07/19/23 Range/Units 01:32 07:23 WBC 7.61 8.04 (4.8-10.8) K/ul Hgb 14.1 14.2 (14.0-18.0) g/dl Hct 41.0 L 41.2 L (42.0-52.0) % Plt Count 149 152 (130-400) K/uL BMP 07/19/23 07/19/23 01:32 07:23 Sodium 142 140 Potassium 3.3 L 4.0 D Chloride 110 H 109 H Carbon Dioxide 26 25 BUN 19 16 Creatinine 1.13 1.04 Glucose 124 H 126 H Calcium 9.3 9.3 Liver Function 07/19/23 Range/Units 01:32 Total Bilirubin 0.5 (0.2-1.0) mg/dl AST 22 (13-39) U/L ALT 27 (7-52) U/L Alkaline Phosphatase 69 (34-104) U/L Albumin 4.1 (3.4-5.0) gm/dl Medications Administered Current Inpatient Medications Acetaminophen (Acetaminophen 325 Mg Tab) 650 mg PO Q4H PRN PRN Reason: Pain or Fever Stop: 08/18/23 06:40 Aspirin (Aspirin 325 Mg Ectab) 325 mg PO DAILY JANICE Stop: 08/18/23 08:59 Last Admin: 07/19/23 08:32 Dose: 325 mg Atorvastatin Calcium (Atorvastatin 40 Mg Tab) 40 mg PO QPM JANICE Stop: 08/18/23 20:59 Atropine Sulfate (Atropine Sulfate 0.1 Mg/Ml 10ml Syr) 1 mg IV ONE PRN PRN Reason: symptomatic bradycardia Felodipine (Felodipine 5 Mg Tabcr) 5 mg PO DAILY JANICE Stop: 08/18/23 08:59 Last Admin: 07/19/23 08:32 Dose: 5 mg Glucosamine Sulfate (Glucosamine Sulfate 500 Mg Cap) 500 mg PO DAILY JANICE Stop: 08/18/23 08:59 Last Admin: 07/19/23 08:32 Dose: 500 mg Lisinopril/HCTZ (Lisinopril/Hctz 10/12.5mg Tab) 1 tab PO DAILY [facility] Stop: 08/18/23 08:59 Last Admin: 07/19/23 08:32 Dose: 1 tab Sodium Chloride (Nss) 1,000 mls @ 75 mls/hr IV .[id number] [facility] Stop: 07/19/23 20:00 Last Admin: 07/19/23 07:26 Dose: 75 mls/hr Multivitamins (Multivitamin Tab) 1 tab PO DAILY [facility] Stop: 08/18/23 08:59 Last Admin: 07/19/23 08:32 Dose: 1 tab Nitroglycerin (Nitroglycerin Sl 0.4 Mg/Tab Tab) 0.4 mg SL Q5M PRN PRN Reason: Chest Pain Stop: 08/18/23 06:40 Polyethylene Glycol (Polyethylene (Miralax) 17 Gm Pack) 17 gm PO DAILY PRN PRN Reason: Constipation Stop: 08/18/23 06:40
[2023-07-19] MEDS: ATORVASTATIN 40 MG TAB PO SCH (22:39)
[2023-07-20] MEDS: ACETAMINOPHEN 325 MG TAB PO PRN (04:36)
--- NOTE | 2023-07-20 07:24 | Cardiology Progress Note ---
Date of Service July 20, 2023 Assessment & Plan (1) Dizziness: (2) 1st degree AV block: (3) 2nd degree atrioventricular block: (4) Hypertension: Plan IMPRESSION: 77-year-old male presented for evaluation of symptoms of dizziness. Symptoms by description are vertiginous in nature with spinning. No lightheadedness or near syncope. Found to be in the ER sinus rhythm with first-degree AV block (chronic on EKG in 2015) plus additional episodes of transient Mobitz type I second-degree AV block. Episodes did not correlate with symptoms. Echo: Normal LVEF of 60-65%, Mild mixed valvular insufficiency. Lyme negative. TSH normal. No evidence of CVA on MRI. Nocturnal pulse ox with x1 desaturation lasting 30 seconds at 82%. Not on AVN blocking agents. PLAN: Dizziness/Conduction system disease: Dizziness has some qualities of vertigo to the symptoms described-- consider trial of meclizine However, he is having intermittent Wenckebach on telemetry-- No significant pauses over night. No indication for ppm at this time. No significant desaturations of nocturnal pulse ox. Avoid AVN blocking agents at this time. Will plan on outpatient zio monitor at discharge. K goal of 4.0 and mag goal of 2.0-- replace as needed. Hypertension: BP improving after morning medication administration. Will need to continue to monitor and titrate dosage as needed. Continue Lisinopril-HCTZ and Felodipine as ordered. TIA: Hx of remote TIA Current CTA head unremarkable. MRI without evidence of CVA. Continue ASA and statin as ordered. Case discussed with Dr. Capellan. No further cardiology recommendations at this time. I spent a total of 30 minutes on the date of service in preparation, delivery, and documentation of the care provided to the patient excluding any time spent in the performance of separately billed services. ION Gatica Department of Cardiology, [facility] This chart was completed in part utilizing Speech Voice Recognition Software. Grammatical errors, random word insertions, pronoun errors, and incomplete sentences are an occasional consequence of this system due to software limitations, ambient noise, and hardware issues. Any formal questions or concerns about the content, text, or information contained within the body of this dictation should be directly addressed to the provider for clarification. Admission and Anticipated Discharge Date Admission Date: July 19, 2023 Supervising Physician Co-Signing Physician Notes Patient seen and examined, chart, medications, telemetry reviewed. Assessment and plan well outlined above. Care and management discussed with advanced provider and endorsed personally Patient ambulatory in room with no further dizziness or lightheadedness. Remains in intermittent Mobitz type I second-degree AV block (Wenckebach) asymptomatically No profound bradycardia or pauses Discussed care with patient and . Current symptoms do not appear to be secondary to conduction abnormalities. Asymptomatic despite presence Patient certainly at risk for progression of current conduction system disease and will need careful follow-up including Zio patch and cardiology clinical appointment May ultimately proceed to needing pacemaker in the future Patient to avoid AV flynn blocking medication Will recommend treating hypertension by increasing lisinopril to 20 mg p.o. daily. Separate out hydrochlorothiazide to 12.5 mg daily as independent prescription Subjective 77-year-old male presented for evaluation of symptoms of dizziness. Symptoms by description are vertiginous in nature with spinning. No lightheadedness or near syncope. Found to be in the ER sinus rhythm with first-degree AV block (chronic on EKG in 2014) plus additional episodes of transient Mobitz type I second-degree AV block. Episodes did not correlate with symptoms. Echocardiogram moderate left ventricular hypertrophy with normal left ventricular systolic function. Lyme screen negative. TSH normal. HS trop normal x3. Nocturnal oximetry report showed 1 desaturation with an SpO2 as low as 82%. Lasted approximately 30 seconds. Neurologic evaluation in progress. CT of the head and brain MRI negative for CVA-- incidental findings of a mass within the posterior medial left orbit noted-- recommended follow up in 6 months. 07/20/2023: Telemetry: SR with a 1st degree AVB and intermittent Wenckebach. Upon entrance into the room patient resting in bed. No acute concerns. No return of dizziness last evening or this am. No chest pain, palpitations, or shortness of breath. No orthopnea or PND. No edema. Review of Systems Review of Systems: All systems reviewed & are unremarkable except as noted in HPI & below Physical Exam Constitutional: WD/WN, vitals as above no acute distress Eyes: PERRL, conjunctivae normal, anicteric sclerae Neck: normal visual inspection and trachea midline Respiratory: normal respiratory effort, lungs clear to auscultation Cardiovascular: Rate/Rhythm: regular rate and regular rhythm Heart Sounds: normal S1 and normal S2; no murmur Vessels: no JVD Extremities: no edema Gastrointestinal (Abdomen): normal bowel sounds, soft, nontender, no hepat osplenomegaly Skin: no rashes, warm and dry Neurologic: PERRL, EOMI, accommodation nl, no face palsy, no dysarthria Psychiatric: A+Ox3, euthymic affect Results & Data Vital Signs (Past 12 Hours) Vital Signs Temp Pulse Pulse Pulse Resp BP Pulse Ox 07/20/23 03:35 48 L 07/20/23 02:43 36.8 C 45 L 18 137/89 97 07/19/23 23:25 44 L 07/19/23 22:58 36.8 C 48 L 18 128/80 95 07/19/23 22:46 46 L 07/19/23 21:55 63 Pulse Ox O2 Del Method O2 Del Method 07/20/23 03:35 95 Room Air 07/20/23 02:43 Room Air 07/19/23 23:25 95 Room Air 07/19/23 22:58 Room Air 07/19/23 22:46 07/19/23 21:55 97 Room Air Laboratory Results Cardiac Enzymes 07/19/23 07/19/23 Range/Units 12:03 19:24 Troponin I High Sens 8.1 8.6 (0-20) pg/ml Lipids 07/20/23 Range/Units 07:02 Triglycerides 154 H (0-150) mg/dl Cholesterol 91 (0-200) mg/dl HDL Cholesterol 24 mg/dl Cholesterol/HDL Ratio 3.8 (0-5) CBC 07/20/23 Range/Units 07:02 WBC 7.49 (4.8-10.8) K/ul RBC 4.59 L (4.70-6.10) M/uL Hgb 14.9 (14.0-18.0) g/dl Hct 42.2 (42.0-52.0) % Plt Count 156 (130-400) K/uL Neut # (Auto) 5.19 (1.40-6.50) K/uL Lymph # (Auto) 1.57 (1.20-3.40) K/uL [place] # (Auto) 0.42 (0.11-0.59) K/uL Eos # (Auto) 0.25 (0.00-0.50) K/uL Baso # (Auto) 0.03 (0.00-0.20) K/uL Comprehensive Metabolic Panel 07/20/23 Range/Units 07:02 Sodium 138 (136-145) mmol/L Potassium 4.4 (3.5-5.1) mmol/L Chloride 105 (98-107) mmol/L Carbon Dioxide 28 (21-32) mmol/L BUN 13 (6-23) mg/dl Creatinine 1.03 (0.6-1.4) mg/dl Glucose 117 H (70-99(Fasting)) mg/dl Calcium 9.4 (8.6-10.3) mg/dl Intake and Output 07/19/23 07/20/23 07/20/23 22:59 06:59 14:59 Intake Total 1000 / 1499.167 300 / 1499.167 Output Total 200 / 710 510 / 710 Balance 800 / 789.167 -210 / 789.167 Intake: IV 1000 / 1199.167 Sodium Chloride 0.9% 1,000 ml @ 1000 / 1000 75 mls/hr IV .[id number] [facility] Rx#: [id number] Oral 300 / 300 Output: Urine 200 / 710 510 / 710 Other: Weight 101.2 kg (4) Hypertension Hypertension type: primary hypertension Qualified Code(s): I10 - Essential (primary) hypertension
[2023-07-20 07:40] LABS: Basophils # (auto) 0.03 K/uL (0.00-0.20); Basophils % (auto) 0.4 %; Eosinophils # (auto) 0.25 K/uL (0.00-0.50); Eosinophils % (auto) 3.3 %; Hematocrit (blood only) 42.2 % (42.0-52.0); Hemoglobin 14.9 g/dl (14.0-18.0); Immature Granulocytes # (auto) 0.03 K/uL (0.01-0.20); Immature Granulocytes % (auto) 0.4 %; Lymphocytes # (auto) 1.57 K/uL (1.20-3.40); Mean Corpuscular Hemoglobin 32.5 pg (25.0-34.0); Mean Corpuscular Hgb Conc 35.3 g/dL (32.0-36.0); Mean Corpuscular Volume 91.9 fL (80.0-100.0); Monocytes # (auto) 0.42 K/uL (0.11-0.59); Monocytes % (auto) 5.6 %; Neutrophils # (auto) 5.19 K/uL (1.40-6.50); Neutrophils % (auto) 69.3 %; Platelet Count 156 K/uL (130-400); RDW Coefficient of Variation 13.4 % (11.5-14.5); RDW Standard Deviation 45.1 fL (36.4-46.3); Red Blood Count 4.59 M/uL (4.70-6.10); White Blood Count 7.49 K/ul (4.8-10.8)
[2023-07-20 07:56] LABS: BUN Creatinine Ratio 12.6 (10-20); Calcium 9.4 mg/dl (8.6-10.3); Chol HDL Ratio 3.8 (0-5); Creatinine Clr Calc Pharmacy 69.3 ml/min; Est GFR (African American) 80.8 ml/min; Est GFR (Non-African American) 69.7 ml/min; Magnesium 1.8 mg/dl (1.7-2.4); Phosphorus 2.7 mg/dl (2.5-4.9); Potassium 4.4 mmol/L (3.5-5.1)
[2023-07-20 08:40] LABS: Estimated Average Glucose 134 mg/dl; Hemoglobin A1C 6.3 % (4.5-5.6)
[2023-07-20] MEDS: MAGNESIUM OXIDE 400 MG TAB PO ONE (10:18)
--- NOTE | 2023-07-20 10:45 | Electrocardiogram Report ---
Test Reason : Blood Pressure : / mmHG Vent. Rate : 050 BPM Atrial Rate : 050 BPM P-R Int : 440 ms QRS Dur : 084 ms QT Int : 464 ms P-R-T Axes : -11 051 041 degrees QTc Int : 423 ms Sinus bradycardia with marked sinus arrhythmia with 1st degree A-V block Otherwise normal ECG When compared with ECG of 19-JUL-2023 05:39, No significant change was found Confirmed by Peter Oliva [id number]) on 07/20/2023 10:45:39 AM Referred By: REFERRED SELF Confirmed By:Alvaro Oliva
--- NOTE | 2023-07-20 15:29 | Discharge Summary ---
Date of Service July 20, 2023 Admission HPI Per Admitting Provider 77-year-old male with past medical history significant for dyslipidemia, prediabetes, hypertension, irritable colon, BPH, proteinuria, eczema, obesity, history of TIA, history of kidney stones presents with dizziness. Patient lives with his son. Ambulates without support. Around midnight when he woke up to go to the bathroom started feeling dizzy. Seems when he had dizziness in the past found to have TIA and prompted him to come to the ER. Currently dizziness resolved while resting. But when he tried to walk to the bathroom in the ER he felt dizzy. No room spinning. No nausea. No chest pain. No shortness of breath. No cough. No fevers. No headache. Vision is okay. No runny nose or sore throat. Appetite is okay. No difficulty swallowing. No abdominal pain. Normal bowel and bladder movements. Denies bloody or black stools . Past medical history. As mentioned above Past surgical history. Colonoscopy. Cystoscopy with lithotripsy ,left third finger repair. Social history. . Lives with her son. Quit smoking 1990. Smoked on average 0.5 packs a day for 22 years. Alcohol 2 standard drinks of alcohol per week. No drug use. Family history. Father had throat cancer. Sister had diabetes. Brother had heart disorder. Mother had lung disorder. Admission Exam Per Admitting Provider General- Not in distress Head- atraumatic Eyes- PERRL, EOMI.No nystagmus seen. ENT- oropharynx clear Neck- supple, no JVD. Lungs- clear to auscultation no wheezing or crackles Heart- regular rhythm; no murmur, no gallop. Abdomen- normal bowel sounds, soft, nontender, no distension. Extremities- no pretibial edema, no erythema seen. Neuro- alert, oriented x 3; PERRL, EOMI; no facial palsy; no dysarthria; motor 5/5 bilaterally; no pronator drift, co ordination of movements normal. sensations intact, position sense intact. Skin- warm & dry Principal Diagnosis Vertigo Discharge Exam General: Lying comfortably in bed, not in distress, on room air HEENT: EOMI, LAURA, MMM Chest: Clear breath sounds bilaterally, no wheezes or crackles CVS: Bradycardia, normal heart sounds, no murmur Abdomen: Soft, non tender, not distended, normal bowel sounds Neuro: Awake, alert, oriented, conversing well, non focal Extremities: No cyanosis, clubbing or edema Discharge Data Allergies Allergy/AdvReac Type Severity Reaction Status Date / Time No Known Allergies Allergy Verified 07/19/23 02:03 Consultations 07/19/23 04:18 ED Decision to Admit Stat 07/19/23 08:00 Consult Cardiology Routine Ordered Studies 07/19/23 01:33 CT abd pelvis IV con only Stat CT head/brain wo con Stat 07/19/23 01:57 CTA head w con [CT angio head w con] Stat CTA neck with con [CT angio neck with con] Stat 07/19/23 06:41 MRI Brain [MR brain wo/w con] Routine MRI Orbit [MR orbit wo/w con] Routine Laboratory Results WBC 7.49 K/ul (4.8-10.8) 07/20/23 07:02 RBC 4.59 M/uL (4.70-6.10) L 07/20/23 07:02 Hgb 14.9 g/dl (14.0-18.0) 07/20/23 07:02 Hct 42.2 % (42.0-52.0) 07/20/23 07:02 MCV 91.9 fL (80.0-100.0) 07/20/23 07:02 MCH 32.5 pg (25.0-34.0) 07/20/23 07:02 MCHC 35.3 g/dL (32.0-36.0) 07/20/23 07:02 RDW Std Deviation 45.1 fL (36.4-46.3) 07/20/23 07:02 RDW Coeff of Roney 13.4 % (11.5-14.5) 07/20/23 07:02 Plt Count 156 K/uL (130-400) 07/20/23 07:02 MPV 10.0 fL (9.4-12.4) 07/20/23 07:02 Immature Gran % (Auto) 0.4 % 07/20/23 07:02 Neut % (Auto) 69.3 % 07/20/23 07:02 Lymph % (Auto) 21.0 % 07/20/23 07:02 [place] % (Auto) 5.6 % 07/20/23 07:02 Eos % (Auto) 3.3 % 07/20/23 07:02 Baso % (Auto) 0.4 % 07/20/23 07:02 Neut # (Auto) 5.19 K/uL (1.40-6.50) 07/20/23 07:02 Lymph # (Auto) 1.57 K/uL (1.20-3.40) 07/20/23 07:02 [place] # (Auto) 0.42 K/uL (0.11-0.59) 07/20/23 07:02 Eos # (Auto) 0.25 K/uL (0.00-0.50) 07/20/23 07:02 Baso # (Auto) 0.03 K/uL (0.00-0.20) 07/20/23 07:02 Immature Gran # (Auto) 0.03 K/uL (0.01-0.20) 07/20/23 07:02 Sodium 138 mmol/L (136-145) 07/20/23 07:02 Potassium 4.4 mmol/L (3.5-5.1) 07/20/23 07:02 Chloride 105 mmol/L (98-107) 07/20/23 07:02 Carbon Dioxide 28 mmol/L (21-32) 07/20/23 07:02 Anion Gap 5 (3-11) 07/20/23 07:02 BUN 13 mg/dl (6-23) 07/20/23 07:02 Creatinine 1.03 mg/dl (0.6-1.4) 07/20/23 07:02 Est Cr Clr Drug Dosing 69.3 ml/min 07/20/23 07:02 Est GFR ( Amer) 80.8 ml/min 07/20/23 07:02 Est GFR (Non-Af Amer) 69.7 ml/min 07/20/23 07:02 BUN/Creatinine Ratio 12.6 (10-20) 07/20/23 07:02 Glucose 117 mg/dl (70-99(Fasting)) H 07/20/23 07:02 Estimat Average Glucose 134 mg/dl 07/20/23 07:02 Hemoglobin A1c 6.3 % (4.5-5.6) H 07/20/23 07:02 Calcium 9.4 mg/dl (8.6-10.3) 07/20/23 07:02 Phosphorus 2.7 mg/dl (2.5-4.9) 07/20/23 07:02 Magnesium 1.8 mg/dl (1.7-2.4) 07/20/23 07:02 Total Bilirubin 0.5 mg/dl (0.2-1.0) 07/19/23 01:32 AST 22 U/L (13-39) 07/19/23 01:32 ALT 27 U/L (7-52) 07/19/23 01:32 Alkaline Phosphatase 69 U/L (34-104) 07/19/23 01:32 Troponin I High Sens 8.6 pg/ml (0-20) 07/19/23 19:24 Total Protein 6.3 gm/dl (6.0-8.3) 07/19/23 01:32 Albumin 4.1 gm/dl (3.4-5.0) 07/19/23 01:32 Globulin 2.2 gm/dl (2.5-4.0) L 07/19/23 01:32 Albumin/Globulin Ratio 1.9 (0.9-2) 07/19/23 01:32 Triglycerides 154 mg/dl (0-150) H 07/20/23 07:02 Cholesterol 91 mg/dl (0-200) 07/20/23 07:02 LDL Cholesterol, Calc 36 mg/dl 07/20/23 07:02 VLDL Cholesterol, Calc 31 mg/dl (0-30) H 07/20/23 07:02 HDL Cholesterol 24 mg/dl 07/20/23 07:02 Cholesterol/HDL Ratio 3.8 (0-5) 07/20/23 07:02 TSH 2.385 uIu/ml (0.300-4.500) 07/19/23 07:23 Lyme Disease Screen Negative (Negative) 07/19/23 07:23 Impressions Abdomen/Pelvis CT 07/19/23 01:33 Exam(s): CT ABDOMEN + PELVIS With Contrast IV Amt: 118 ML OPTIRAY 320 EXAM: CT Abdomen and Pelvis With Intravenous Contrast CLINICAL HISTORY: Reason for exam: abd pain, diffuse. TECHNIQUE: Axial computed tomography images of the abdomen and pelvis with intravenous contrast. CTDI is 114.81 mGy and DLP is 2977.26 mGy-cm. Automated exposure control was utilized for the study. A dose lowering technique was utilized adhering to the principles of ALARA. CONTRAST: Patient received 118 ML OPTIRAY 320 of IV contrast COMPARISON: January 04, 2018 FINDINGS: Lung bases: Unremarkable. No mass. No consolidation. ABDOMEN: Liver: Unremarkable. No mass. Gallbladder and bile ducts: Unremarkable. No calcified stones. No ductal dilation. Pancreas: Unremarkable. No mass. No ductal dilation. Spleen: Unremarkable. No splenomegaly. Adrenals: Unremarkable. No mass. Kidneys and ureters: There is a nonobstructive 3 mm calyceal calculus in the left kidney. No hydronephrosis or ureterolithiasis is seen involving either kidney. Several simple renal cysts are present measuring up to 4.8 cm on the right. No follow-up is required. Stomach and bowel: See below. PELVIS: Appendix: The appendix is normal. Bowel loops are nondilated. There is diverticulosis throughout the colon without evidence of acute diverticulitis. No acute inflammatory changes are seen involving the bowel. Bladder: Unremarkable. No mass. Reproductive: Unremarkable as visualized. ABDOMEN and PELVIS: Intraperitoneal space: Unremarkable. No free air. No significant fluid collection. Bones/joints: Mild to moderate degenerative changes throughout the spine. No acute fracture or subluxation is seen. Soft tissues: Unremarkable. Vasculature: Atherosclerotic changes involving the abdominal aorta with mild ectasia measuring 3 cm. No abdominal aortic aneurysm. Lymph nodes: Unremarkable. No enlarged lymph nodes. IMPRESSION: 1. The appendix is normal. Bowel loops are nondilated. There is diverticulosis throughout the colon without evidence of acute diverticulitis. No acute inflammatory changes are seen involving the bowel. 2. There is a nonobstructive 3 mm calyceal calculus in the left kidney. No hydronephrosis or ureterolithiasis is seen involving either kidney. Electronically signed by: Cordell Younger MD 07/19/23 03:[address] 07/19/23 01:33 Exam(s): CT HEAD Without Contrast EXAM: CT Head Without Intravenous Contrast CLINICAL HISTORY: Reason for exam: vertigo. TECHNIQUE: Axial computed tomography images of the head/brain without intravenous contrast. CTDI is 31.05 mGy and DLP is 512.02 mGy-cm. Automated exposure control was utilized for the study. A dose lowering technique was utilized adhering to the principles of ALARA. COMPARISON: No relevant prior studies available. FINDINGS: Brain: Unremarkable. No hemorrhage. Moderate nonspecific white matter changes. No edema. Ventricles: Unremarkable. No ventriculomegaly. Bones/joints: Unremarkable. No acute fracture. Soft tissues: There is a smoothly marginated soft tissue lesion in the medial left orbit, measuring approximately 15.2 x 11.3 x 9.4 mm. Sinuses: Chronic ethmoid sinusitis. No acute sinusitis. Mastoid air cells: Unremarkable as visualized. No mastoid effusion. IMPRESSION: No evidence of acute intracranial pathology. There is a soft tissue lesion in the medial left orbit measuring 15.2 x 11.3 x 9.4 mm. Recommend MRI of the orbits with and without contrast for further evaluation. Electronically signed by: Orin Mei MD 07/19/23 03:17 AM Head CTA 07/19/23 01:57 Exam(s): CTA HEAD With Contrast IV Amt: 118 ML OPTIRAY 320 EXAM: CT Angiography Head With Intravenous Contrast CLINICAL HISTORY: Reason for exam: vertigo, hx stroke. TECHNIQUE: Axial computed tomographic angiography images of the head with intravenous contrast. CTDI is 114.81 mGy and DLP is 2977.26 mGy-cm. Automated exposure control was utilized for the study. A dose lowering technique was utilized adhering to the principles of ALARA. MIP reconstructed images were created and reviewed. CONTRAST: Patient received 118 ML OPTIRAY 320 of IV contrast COMPARISON: No relevant prior studies available. FINDINGS: The dural venous sinuses are patent. Right internal carotid artery: No acute findings. Intracranial segment is patent with no significant stenosis. No aneurysm. Right anterior cerebral artery: Unremarkable. No occlusion or significant stenosis. No aneurysm. Right middle cerebral artery: Unremarkable. No occlusion or significant stenosis. No aneurysm. Right posterior cerebral artery: Unremarkable. No occlusion or significant stenosis. No aneurysm. Right vertebral artery: Unremarkable as visualized. Left internal carotid artery: No acute findings. Intracranial segment is patent with no significant stenosis. No aneurysm. Left anterior cerebral artery: Unremarkable. No occlusion or significant stenosis. No aneurysm. Left middle cerebral artery: Unremarkable. No occlusion or significant stenosis. No aneurysm. Left posterior cerebral artery: Unremarkable. No occlusion or significant stenosis. No aneurysm. Left vertebral artery: Unremarkable as visualized. Basilar artery: Unremarkable. No occlusion or significant stenosis. No aneurysm. IMPRESSION: Negative CT angiogram of the head. Electronically signed by: Orin Mei MD 07/19/23 03:31 AM Neck CTA 07/19/23 01:57 Exam(s): CTA NECK With Contrast IV Amt: 118 ML OPTIRAY 320 EXAM: CT Angiography Neck With Intravenous Contrast CLINICAL HISTORY: Reason for exam: vertigo, hx stroke. TECHNIQUE: Routine carotid CT angiography protocol was performed with intravenous contrast. NASCET criteria using the distal ICAs for comparison were used for evaluation of stenoses. CTDI is 114.81 mGy and DLP is 2977.26 mGy-cm. Automated exposure control was utilized for the study. A dose lowering technique was utilized adhering to the principles of ALARA. MIP reconstructed images were created and reviewed. CONTRAST: Patient received 118 ML OPTIRAY 320 of IV contrast COMPARISON: None. FINDINGS: VASCULATURE: Ectasia of the ascending aorta measuring 34.7 mm in diameter. Right common carotid artery: Unremarkable. No occlusion or significant stenosis. No dissection. Right internal carotid artery: Unremarkable. Extracranial segment is patent with no occlusion or significant stenosis. No dissection. Right external carotid artery: Unremarkable. No occlusion. Right vertebral artery: Unremarkable. No occlusion or significant stenosis. No dissection. Left common carotid artery: Unremarkable. No occlusion or significant stenosis. No dissection. Left internal carotid artery: Unremarkable. Extracranial segment is patent with no occlusion or significant stenosis. No dissection. Left external carotid artery: Unremarkable. No occlusion. Left vertebral artery: Unremarkable. No occlusion or significant stenosis. No dissection. NECK: Bones/joints: Unremarkable. No acute fracture. Soft tissues: Prominent mediastinal and hilar lymph nodes. Lung apices: Bronchitis with pneumonitis, which may be of infectious or inflammatory jaundice. CAROTID STENOSIS REFERENCE USING NASCET CRITERIA: % ICA stenosis = (1 - narrowest ICA diameter/diameter of distal cervical ICA) x 100. Mild - <50% stenosis. Moderate - 50-69% stenosis. Severe - 70-94% stenosis. Near occlusion - 95-99% stenosis. Occluded - 100% stenosis. IMPRESSION: Negative CTA neck. Electronically signed by: Orin Mei MD 07/19/23 03:38 AM Brain MRI 07/19/23 06:41 MRI OF THE BRAIN WITHOUT AND WITH IV CONTRAST CLINICAL HISTORY: Dizziness. COMPARISON STUDY: Head CT and CTA of the head July 19, 2023. TECHNIQUE: Utilizing a 1.5 Shelly magnet and dedicated coil, multiplanar, multiecho imaging of the brain was performed pre and postcontrast administration. IV administration of 10 mL of Gadavist contrast was uneventful. FINDINGS: There are no foci of restricted diffusion to suggest acute infarct. No acute intracranial hemorrhage, midline shift or mass effect is present. Ventricular system is unremarkable. Basal cisterns are patent. Flow-voids for the major intracranial vessels are present. Multiple white matter T2 hyperintense foci suggest moderate small vessel disease. No intracranial mass or pathologic enhancement is present. A small mass measuring approximately 1 cm within the posterior medial left orbit is better depicted on the orbit MRI. This will be reported separately. Calvarial signal is normal. No cerebellopontine angle mass is identified on this exam. There is no mastoid effusion. IMPRESSION: 1. No acute intracranial findings. 2. No intracranial mass or pathologic enhancement. 3. Small left orbital mass measuring approximately 1 cm, better depicted on the orbit MRI which will be reported separately. ACT 112: Negative or not required by law. Electronically signed by: Edgardo Mao M.D. 07/19/2023 10:01 AM Orbit MRI 07/19/23 06:41 MR orbit wo/w con CLINICAL HISTORY: orbit lesion on ct scan COMPARISON STUDY: Head CT July 19, 2023. TECHNIQUE: Utilizing a 1.5 Shelly magnet and dedicated coil, multiplanar, multi echo imaging of the orbits was performed pre and postcontrast administration. Intravenous injection of 10 cc of Gadavist was uneventful. FINDINGS: There is a 1.1 x 0.7 x 0.6 cm T2 hyperintense enhancing mass within the posterior medial left orbit, located between the inferior and medial rectus muscles. This corresponds to the mass on head CT of July 19, 2023. No additional orbital masses are identified. Superior ophthalmic veins are not dilated. No optic nerve abnormality is identified. The globes are intact. There is mild ethmoid sinus mucosal thickening. Please note that the MRI of the brain will be reported separately. IMPRESSION: 1.1 cm T2 hyperintense enhancing mass within the posterior medial left orbit which corresponds to the mass on CT of July 19, 2023. 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 A venous varix could appear similar. A follow-up MRI of the orbits in 6 months to ensure stability is recommended. ACT 112: Negative or not required by law. Electronically signed by: Edgardo Mao M.D. 07/19/2023 10:08 AM Hospital Course (1) Dizziness: Patient presenting with dizziness, consistent with vertigo. It was short lasting. He did not have any recurrence after admission. Workup has been unremarkable. Labs unremarkable, echo with normal EF with mild mixed valvular insufficiency, Lyme negative, TSH normal, no evidence of stroke on imaging, nocturnal pulse oximetry did not show significant desaturation event. He he did have some bradycardia despite not being on any AV flynn blockers. He was seen by cardiology-allison Rea but no significant pauses on telemetry and no indication for PPM. He might need pacemaker in future and cardiology will follow-up with outpatient Zio patch. His MRI showed incidental finding of possible AV malformation and recommended 6-month follow-up. Prior hospitalist communicated with neurology and there was no need for consult per notes. He ambulated around the petit independently without any issues. He did not have any further episodes of vertigo or dizziness. He is anxious to go home. Discharging on trial of meclizine per cardiology recommendation just in case. Recommended to follow-up with PCP for further management of hypertension. Also reviewed precautions while standing up from supine position. Also discussed the MRI findings and need for repeat MRI orbit in 6 months for follow-up, sooner if he has neurological symptoms. Son and daughter were at bedside and reviewed plan of care. Total Time Total Time Spent Total Time Spent (In Minutes): 32 minutes Discharge Plan Discharge Items Patient Disposition: Home - Self-Care Reason For Visit: DIZZINESS, ABNORMAL RHYTHM Discharge Diagnosis: Vertigo Activity: Resume your previous activity Non-emergency contact: Primary Care Provider and Golf Course Manager Call non-emergency contact if: you have any medication questions and your symptoms worsen Follow-up/Referrals: Terry Capellan MD [Physician] - (The Cardiology office will contact you for a follow up appointment.) Facundo Mcgill DO [Primary Care Provider] - (Date & Time 07/25/2023 1:40 PM Provider Facundo Mcgill DO Department [facility] ) Diet: Heart Healthy Addtl Attending Provider Instructions: Your symptoms seem consistent with vertigo. Work up has been negative except for the incidental MRI brain finding for which MRI orbit 6 month is recommended. Follow up with the family doctor. Follow up with the heart doctor for the zio patch. Pending Studies at Discharge: No Stand-Alone Forms: [facility], Smoking Cessation Medications and DC Order Prescriptions: New meclizine 12.5 mg tablet 12.5 mg PO TID PRN (Reason: dizziness) Qty: 5 0RF Continued atorvastatin 40 mg tablet 40 mg PO QPM felodipine 5 mg tablet extended release 24 hr 5 mg PO DAILY lisinopril-hydrochlorothiazide 10-12.5 mg tablet 1 tab PO DAILY multivitamin Tablet 1 tab PO DAILY aspirin 325 mg Tablet 325 mg PO DAILY glucosamine-chondroitin [Osteo Bi-Flex] 250-200 mg Tablet 2 tabs PO DAILY Discharge Orders: Discharge Order (Routine); Ordered 07/20/23 Ordered By: Phil Cabello/Other Patient Handouts: Prediabetes, 5 Steps for Eating Healthier Admission Data Admit Date/Time: 07/19/23 05:25 Attending Provider: Phil Watson Admit Provider: Colten Loya Primary Care Provider: Facundo Mcgill Other Providers: Colten Loya; Terry Capellan Other Interventions: Discharge Summary Assessment (RN) Last Done: 07/20/23 14:16
== END 2023-07-20 14:54 | disposition home or self-care (01) | DRG 312 ==
LOC: ED 01:07 → EDINP 05:25 → SUATTDRO 05:25 → 4W 06:41

== ENCOUNTER 2023-08-04 23:19 | Inpatient (IN) ==
--- NOTE | 2023-08-05 00:03 | Emergency Department Note ---
Impression & Plan Pre-syncope ADMIT ED Provider Note HPI: History obtained from patient and son at bedside. The patient is a 77-year-old gentleman with history of second-degree AV block, presents emergency department with a chief complaint of dizziness and dyspnea when he stood up from a seated position earlier tonight. Patient states that his symptoms of dizziness and dyspnea lasted approximately 45 minutes. On arrival here to the ED the patient states his symptoms are now improved. He has noted to have a ZIO patch in place on arrival. Patient denies any chest pain, denies any current shortness of breath. On arrival here to the ED the patient's heart rate is in the 40s but he is otherwise hemodynamically stable and saturating well on room air. ROS: - Per HPI Differential Diagnosis: Orthostatic presyncope, vasovagal event, heart block to include third-degree heart block, second-degree, arrhythmia to include atrial fibrillation with RVR, SVT, WPW, ventricular tachycardia, acute coronary syndrome, amongst other potential pathologies. *Outpatient medications and allergy history reviewed. 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 Lab work shows no leukocytosis, hemoglobin is normal, platelet count is normal, CMP does not show any evidence of any critical findings, troponin is negative, BNP is mildly elevated at 168, chest x-ray per my interpretation does not show any acute disease. Patient's COVID-19 test is positive. On my reassessment the patient is resting comfortably in bed. His blood pressure has been stable while here in the ED. I discussed the patient's presentation with the on-call hospitalist, Dr. Thornton, and the patient will be admitted for further management and cardiology consultation. I suspect he will require pacemaker placement for his presyncopal events and bradycardia. Patient is in agreement to this plan and he was placed for admission in stable condition. Consultants/Discussions held with other healthcare providers: -Hospitalist, Dr. Thornton Disposition discussion held by myself with: -Patient and family member at the bedside Diagnosis: 1. Presyncopal event, acute 2. Symptomatic bradycardia, acute 3. Elevated BNP, acute, mild 4. COVID-19 infection, acute Disposition: Admission Allen Medina DO Emergency Medicine Past Med/Surg History Medical History Hypertension Kidney stone Encounter for removal of sutures Laceration of thumb, left Social History Smoking Status: Never smoker Tobacco Type: Cigarettes Do You Dip or Chew Tobacco: No; Hx Alcohol Use: No Hx Substance Use: No Preferred Language: Hungarian Communication Ability: Effective Adult Basic Education Instructor Required: No Beliefs That Will Affect Care: None Current Living Situation: Family Current Living Situation Comment: son lives with patient Feels Safe at Home: Yes Assistive Devices: None Allergies Allergies Allergy/AdvReac Type Severity Reaction Status Date / Time No Known Allergies Allergy Verified 08/05/23 00:35 Home Meds Home Medications Medication Instructions Recorded Confirmed aspirin 325 mg tablet 325 mg PO DAILY 01/04/18 08/05/23 atorvastatin 40 mg tablet 40 mg PO HS 01/04/18 08/05/23 felodipine 5 mg tablet,extended 5 mg PO DAILY 01/04/18 08/05/23 release 24 hr glucosamine-chondroitin 250 mg-200 2 tabs PO DAILY 01/04/18 08/05/23 mg tablet (Osteo Bi-Flex) multivitamin 1 tab PO DAILY 01/04/18 08/05/23 hydrochlorothiazide 12.5 mg capsule 12.5 mg PO QAM 08/05/23 08/05/23 lisinopril 10 mg tablet 20 mg PO QAM 08/05/23 08/05/23 Previous Rx's Medication Instructions Recorded meclizine 12.5 mg tablet 12.5 mg PO TID PRN dizziness #5 07/20/23 tabs Results & Data (ED) Vital Signs Vital Signs - 24 hr 08/04/23 23:21 08/04/23 23:22 08/04/23 23:34 Temperature 36.6 C Temperature Source Temporal Artery Scan Pulse Rate - Lying Pulse Rate - Sitting Pulse Rate - Standing Pulse Rate 47 L 45 L Pulse Rate [Apical] 46 L Pulse Rate from SpO2 Sensor Pulse Rhythm Regular Pulse Rhythm [Apical] Regular Pulse Strength Normal Pulse Strength [Apical] Normal Respiratory Rate 18 20 Respiratory Effort / Characteristics Non-Labored Non-Labored Spontaneous Respiratory Depth Normal Normal Respiratory Pattern Regular Regular Blood Pressure - Lying Blood Pressure - Sitting Blood Pressure- Standing Blood Pressure 134/75 Blood Pressure [Right Arm] 144/75 H Blood Pressure Mean 94 Blood Pressure Mean [Right Arm] 98 Blood Pressure Position Sitting Blood Pressure Position [Right Arm] Pulse Oximetry 97 98 Oxygen Delivery Method Room Air Room Air Oxygen Flow Rate Sepsis Recent Fever Within 48 Hours No Sepsis New/Unexplained Change in Mental Status N/A Sepsis Action Taken by Nursing No Action Required Oxygen Flow Rate - Titration 08/04/23 23:34 08/05/23 00:04 08/05/23 00:04 Temperature Temperature Source Pulse Rate - Lying Pulse Rate - Sitting Pulse Rate - Standing Pulse Rate 45 L Pulse Rate [Apical] Pulse Rate from SpO2 Sensor 44 L Pulse Rhythm Pulse Rhythm [Apical] Pulse Strength Pulse Strength [Apical] Respiratory Rate 14 Respiratory Effort / Characteristics Non-Labored Respiratory Depth Normal Respiratory Pattern Regular Blood Pressure - Lying Blood Pressure - Sitting Blood Pressure- Standing Blood Pressure 144/75 H Blood Pressure [Right Arm] Blood Pressure Mean 98 Blood Pressure Mean [Right Arm] Blood Pressure Position Blood Pressure Position [Right Arm] Pulse Oximetry 97 97 Oxygen Delivery Method Room Air Room Air Oxygen Flow Rate 0 0 Sepsis Recent Fever Within 48 Hours Sepsis New/Unexplained Change in Mental Status Sepsis Action Taken by Nursing Oxygen Flow Rate - Titration 0 08/05/23 00:22 08/05/23 00:23 08/05/23 00:23 Temperature Temperature Source Pulse Rate - Lying 48 L Pulse Rate - Sitting 49 L Pulse Rate - Standing 70 Pulse Rate 45 L Pulse Rate [Apical] Pulse Rate from SpO2 Sensor Pulse Rhythm Pulse Rhythm [Apical] Pulse Strength Pulse Strength [Apical] Respiratory Rate Respiratory Effort / Characteristics Respiratory Depth Respiratory Pattern Blood Pressure - Lying 147/92 H Blood Pressure - Sitting 154/89 H Blood Pressure- Standing 158/103 H Blood Pressure Blood Pressure [Right Arm] Blood Pressure Mean Blood Pressure Mean [Right Arm] Blood Pressure Position Blood Pressure Position [Right Arm] Pulse Oximetry 97 Oxygen Delivery Method Room Air Room Air Oxygen Flow Rate 0 Sepsis Recent Fever Within 48 Hours Sepsis New/Unexplained Change in Mental Status Sepsis Action Taken by Nursing Oxygen Flow Rate - Titration 08/05/23 01:04 Temperature Temperature Source Pulse Rate - Lying Pulse Rate - Sitting Pulse Rate - Standing Pulse Rate Pulse Rate [Apical] 53 L Pulse Rate from SpO2 Sensor Pulse Rhythm Pulse Rhythm [Apical] Irregular Pulse Strength Pulse Strength [Apical] Normal Respiratory Rate 20 Respiratory Effort / Characteristics Non-Labored Spontaneous Respiratory Depth Normal Respiratory Pattern Regular Blood Pressure - Lying Blood Pressure - Sitting Blood Pressure- Standing Blood Pressure Blood Pressure [Right Arm] 159/105 H Blood Pressure Mean Blood Pressure Mean [Right Arm] 123 Blood Pressure Position Blood Pressure Position [Right Arm] Sitting Pulse Oximetry 96 Oxygen Delivery Method Room Air Oxygen Flow Rate Sepsis Recent Fever Within 48 Hours Sepsis New/Unexplained Change in Mental Status Sepsis Action Taken by Nursing Oxygen Flow Rate - Titration Laboratory Data 08/05/23 00:06 08/05/23 00:06 Lab Results 08/05/23 08/05/23 Range/Units 00:06 00:14 WBC 8.72 (4.8-10.8) K/ul RBC 4.55 L (4.70-6.10) M/uL Hgb 14.7 (14.0-18.0) g/dl Hct 42.7 (42.0-52.0) % MCV 93.8 (80.0-100.0) fL MCH 32.3 (25.0-34.0) pg MCHC 34.4 (32.0-36.0) g/dL RDW Std Deviation 45.6 (36.4-46.3) fL RDW Coeff of Roney 13.3 (11.5-14.5) % Plt Count 180 (130-400) K/uL MPV 10.0 (9.4-12.4) fL Immature Gran % (Auto) 0.3 % Neut % (Auto) 63.8 % Lymph % (Auto) 26.3 % [place] % (Auto) 6.1 % Eos % (Auto) 3.0 % Baso % (Auto) 0.5 % Neut # (Auto) 5.57 (1.40-6.50) K/uL Lymph # (Auto) 2.29 (1.20-3.40) K/uL [place] # (Auto) 0.53 (0.11-0.59) K/uL Eos # (Auto) 0.26 (0.00-0.50) K/uL Baso # (Auto) 0.04 (0.00-0.20) K/uL Immature Gran # (Auto) 0.03 (0.01-0.20) K/uL PT 10.9 (9.0-12.0) Seconds INR 1.0 (0.9-1.1) APTT 26 (21-31) Seconds PTT Ratio 1.0 Sodium 141 (136-145) mmol/L Potassium 3.8 (3.5-5.1) mmol/L Chloride 108 H (98-107) mmol/L Carbon Dioxide 26 (21-32) mmol/L Anion Gap 7 (3-11) BUN 19 (6-23) mg/dl Creatinine 1.05 (0.6-1.4) mg/dl Est Cr Clr Drug Dosing 66.3 ml/min Est GFR ( Amer) 79.0 ml/min Est GFR (Non-Af Amer) 68.1 ml/min BUN/Creatinine Ratio 18.1 (10-20) Glucose 122 H (70-99(Fasting)) mg/dl Calcium 9.1 (8.6-10.3) mg/dl Total Bilirubin 0.6 (0.2-1.0) mg/dl AST 24 (13-39) U/L ALT 31 (7-52) U/L Alkaline Phosphatase 74 (34-104) U/L Troponin I High Sens 9.3 (0-20) pg/ml B-Natriuretic Peptide 168 H (0-100) pg/ml Total Protein 6.1 (6.0-8.3) gm/dl Albumin 4.0 (3.4-5.0) gm/dl Globulin 2.1 L (2.5-4.0) gm/dl Albumin/Globulin Ratio 1.9 (0.9-2) SARS-CoV-2 (PCR) POSITIVE (Negative) Influenza Type A (PCR) Negative (Neg) Influenza Type B (PCR) Negative (Neg) RSV (RT-PCR) Negative (Neg) Administered Medications Discontinued Medications Sodium Chloride (Nss) 500 mls @ 999 mls/hr IV .Q31M ONE Stop: 08/05/23 00:31 Last Infusion: 08/05/23 00:56 Dose: Infused Documented By: Admin: 08/05/23 00:20 Dose: 999 mls/hr Documented By: STEPHANIE Discharge Plan Visit Data Chief Complaint: Shortness of Breath/Dyspnea Stated Complaint: SOB,DIZZY/ESPECIALLY GETTING UP, HAS HEART MONITOR ED Provider: Allen Medina Discharge Problem: Pre-syncope Forms Stand Alone Forms: My [facility] Prescriptions Prescriptions: No Action atorvastatin 40 mg tablet 40 mg PO HS felodipine 5 mg tablet extended release 24 hr 5 mg PO DAILY multivitamin Tablet 1 tab PO DAILY aspirin 325 mg Tablet 325 mg PO DAILY glucosamine-chondroitin [Osteo Bi-Flex] 250-200 mg Tablet 2 tabs PO DAILY meclizine 12.5 mg tablet 12.5 mg PO TID PRN (Reason: dizziness) Qty: 5 0RF lisinopril 10 mg tablet 20 mg PO QAM hydrochlorothiazide 12.5 mg capsule 12.5 mg PO QAM Referrals Referrals: Facundo Mcgill DO [Primary Care Provider] -
[2023-08-05] MEDS: SODIUM CHLORIDE 0.9% 500 ML IV ONE (00:20)
[2023-08-05 00:27] LABS: Basophils # (auto) 0.04 K/uL (0.00-0.20); Basophils % (auto) 0.5 %; Eosinophils # (auto) 0.26 K/uL (0.00-0.50); Hematocrit (blood only) 42.7 % (42.0-52.0); Hemoglobin 14.7 g/dl (14.0-18.0); Immature Granulocytes # (auto) 0.03 K/uL (0.01-0.20); Immature Granulocytes % (auto) 0.3 %; Lymphocytes # (auto) 2.29 K/uL (1.20-3.40); Lymphocytes % (auto) 26.3 %; Mean Corpuscular Hemoglobin 32.3 pg (25.0-34.0); Mean Corpuscular Hgb Conc 34.4 g/dL (32.0-36.0); Mean Corpuscular Volume 93.8 fL (80.0-100.0); Monocytes # (auto) 0.53 K/uL (0.11-0.59); Monocytes % (auto) 6.1 %; Neutrophils # (auto) 5.57 K/uL (1.40-6.50); Neutrophils % (auto) 63.8 %; Platelet Count 180 K/uL (130-400); RDW Coefficient of Variation 13.3 % (11.5-14.5); RDW Standard Deviation 45.6 fL (36.4-46.3); Red Blood Count 4.55 M/uL (4.70-6.10); White Blood Count 8.72 K/ul (4.8-10.8)
[2023-08-05 00:35] LABS: Partial Thromboplastin Time 26 Seconds (21-31); Prothrombin Time 10.9 Seconds (9.0-12.0)
[2023-08-05 00:43] LABS: Albumin Globulin Ratio 1.9 (0.9-2); BUN Creatinine Ratio 18.1 (10-20); Bilirubin,Total 0.6 mg/dl (0.2-1.0); Calcium 9.1 mg/dl (8.6-10.3); Creatinine Clr Calc Pharmacy 66.3 ml/min; Est GFR (Non-African American) 68.1 ml/min; Globulin 2.1 gm/dl (2.5-4.0); Potassium 3.8 mmol/L (3.5-5.1); Total Protein 6.1 gm/dl (6.0-8.3)
[2023-08-05 00:49] LABS: Troponin I High Sensitivity 9.3 pg/ml (0-20)
[2023-08-05 01:05] LABS: Influenza A virus by PCR Negative (Neg); Influenza B virus by PCR Negative (Neg); RSV by PCR Negative (Neg); SARS CoV2 RNA(COVID-19) Ceph POSITIVE (Negative)
[2023-08-05 01:29] LABS: Magnesium 1.6 mg/dl (1.7-2.4)
--- NOTE | 2023-08-05 01:47 | History & Physical Report ---
Date of Service August 05, 2023 Assessment & Plan (1) Dizziness: Plan: Multifactorial: Vertigo description Possible symptomatic bradycardia, history of conduction system disease hypertension, slight elevated valvular heart disease (mild MR/TR) hx TIA, on aspirin and statin Rx prediabetes, hemoglobin A1c of 6.05 April 2023 Hypomagnesemia past tobacco abuse PCU Atropine prn symptomatic bradycardia Cardiology consult Re: Recurrent dizziness, history of conduction system disease N.p.o. until patient seen by cardiology in anticipation of procedure Replace magnesium DVT prophylaxis. SCDs for now re: possible procedure Full code Text document was generated using [employer] voice recognition software. It may contain grammatical or spelling errors. Kindly contact undersigned for clarification of any documentation item in question. History of Present Illness Chief Complaint: Dizziness Primary Care Provider: Facundo Mcgill DO History obtained from patient, family, and records. Medical history significant for hypertension, first-degree/second-degree AV block (Mobitz type I), valvular heart disease (mild MR/TR), TIA, prediabetes, urolithiasis, BPH, past tobacco abuse. Recent confinement 3 weeks ago for dizziness attributed to vertigo. 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 Intermittent Wenckebach during confinement. No significant pauses during confinement as per documentation. Outpatient Zio patch recommended by cardiology. Patient seen at [facility] cardiology office on follow-up visit a few days ago. Home lisinopril dose increased to 20 mg daily given elevated BP during visit. Patient has had 2 episodes of spinning dizziness not related to motion following office visit. Some relief with meclizine Rx. Patient denies chest pain, SOB symptoms. Patient denies headache symptoms. Heart rate as low as 30 at times as per daughter. Patient brought to ER by family for further evaluation. 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 Allergies Allergy/AdvReac Type Severity Reaction Status Date / Time No Known Allergies Allergy Verified 08/05/23 00:35 Home Medications Medication Instructions Recorded Confirmed Type aspirin 325 mg tablet 325 mg PO DAILY 01/04/18 08/05/23 History atorvastatin 40 mg tablet 40 mg PO HS 01/04/18 08/05/23 History felodipine 5 mg tablet,extended 5 mg PO DAILY 01/04/18 08/05/23 History release 24 hr glucosamine-chondroitin 250 mg-200 2 tabs PO DAILY 01/04/18 08/05/23 History mg tablet (Osteo Bi-Flex) multivitamin 1 tab PO DAILY 01/04/18 08/05/23 History meclizine 12.5 mg tablet 12.5 mg PO TID PRN dizziness #5 07/20/23 08/05/23 Rx tabs hydrochlorothiazide 12.5 mg capsule 12.5 mg PO QAM 08/05/23 08/05/23 History lisinopril 10 mg tablet 20 mg PO QAM 08/05/23 08/05/23 History Past Med/Surg History Medical History Hypertension Kidney stone Encounter for removal of sutures Laceration of thumb, left Social History Smoking Status: Former smoker Tobacco Type: Cigarettes Do You Dip or Chew Tobacco: No; Hx Alcohol Use: Yes Alcohol type: beer Hx Substance Use: No Preferred Language: Micronesian Communication Ability: Effective Sieve Grader Tender Required: No Beliefs That Will Affect Care: None Current Living Situation: Other Current Living Situation Comment: Patient lives at home with son Other Information That Helps Us Care for You: No Feels Safe at Home: Yes Safety Concerns: Feels Safe At This Time Assistive Devices: None Review of Systems Review of Systems: As per HPI, all other systems reviewed and negative Physical Exam Physical Exam: GENERAL: Comfortable, obese, pleasant, no respiratory distress SKIN: Normal color, warm HEENT: [place] palpebral conjunctivae, no ptosis, dry buccal mucosa NECK : Supple, short neck, no tenderness CHEST : CTA, no tenderness HEART : Bradycardic, no obvious murmurs ABDOMEN: Some distention, nontender EXTREMITIES : No LE swelling/tenderness, no other conspicuous deformities noted NEUROLOGIC : Coherent, no facial asymmetry, no other gross focality Results & Data Results & Data Vital Signs (Past 12 Hours) Vital Signs Temp Pulse Pulse Resp BP BP Pulse Ox 08/05/23 01:04 53 L 20 159/105 H 96 08/05/23 00:23 08/05/23 00:23 45 L 97 08/05/23 00:04 97 08/05/23 00:04 08/04/23 23:34 45 L 14 144/75 H 97 08/04/23 23:34 45 L 08/04/23 23:22 36.6 C 47 L 20 134/75 98 08/04/23 23:21 46 L 18 144/75 H 97 O2 Del Method O2 Flow Rate 08/05/23 01:04 Room Air 08/05/23 00:23 Room Air 0 08/05/23 00:23 Room Air 08/05/23 00:04 Room Air 0 08/05/23 00:04 Room Air 0 08/04/23 23:34 08/04/23 23:34 08/04/23 23:22 Room Air 08/04/23 23:21 Room Air Laboratory Results Laboratory Results WBC 8.72 K/ul (4.8-10.8) 08/05/23 00:06 RBC 4.55 M/uL (4.70-6.10) L 08/05/23 00:06 Hgb 14.7 g/dl (14.0-18.0) 08/05/23 00:06 Hct 42.7 % (42.0-52.0) 08/05/23 00:06 MCV 93.8 fL (80.0-100.0) 08/05/23 00:06 MCH 32.3 pg (25.0-34.0) 08/05/23 00:06 MCHC 34.4 g/dL (32.0-36.0) 08/05/23 00:06 RDW Std Deviation 45.6 fL (36.4-46.3) 08/05/23 00:06 RDW Coeff of Roney 13.3 % (11.5-14.5) 08/05/23 00:06 Plt Count 180 K/uL (130-400) 08/05/23 00:06 MPV 10.0 fL (9.4-12.4) 08/05/23 00:06 Immature Gran % (Auto) 0.3 % 08/05/23 00:06 Neut % (Auto) 63.8 % 08/05/23 00:06 Lymph % (Auto) 26.3 % 08/05/23 00:06 [place] % (Auto) 6.1 % 08/05/23 00:06 Eos % (Auto) 3.0 % 08/05/23 00:06 Baso % (Auto) 0.5 % 08/05/23 00:06 Neut # (Auto) 5.57 K/uL (1.40-6.50) 08/05/23 00:06 Lymph # (Auto) 2.29 K/uL (1.20-3.40) 08/05/23 00:06 [place] # (Auto) 0.53 K/uL (0.11-0.59) 08/05/23 00:06 Eos # (Auto) 0.26 K/uL (0.00-0.50) 08/05/23 00:06 Baso # (Auto) 0.04 K/uL (0.00-0.20) 08/05/23 00:06 Immature Gran # (Auto) 0.03 K/uL (0.01-0.20) 08/05/23 00:06 PT 10.9 Seconds (9.0-12.0) 08/05/23 00:06 INR 1.0 (0.9-1.1) 08/05/23 00:06 APTT 26 Seconds (21-31) 08/05/23 00:06 PTT Ratio 1.0 08/05/23 00:06 Sodium 141 mmol/L (136-145) 08/05/23 00:06 Potassium 3.8 mmol/L (3.5-5.1) 08/05/23 00:06 Chloride 108 mmol/L (98-107) H 08/05/23 00:06 Carbon Dioxide 26 mmol/L (21-32) 08/05/23 00:06 Anion Gap 7 (3-11) 08/05/23 00:06 BUN 19 mg/dl (6-23) 08/05/23 00:06 Creatinine 1.05 mg/dl (0.6-1.4) 08/05/23 00:06 Est Cr Clr Drug Dosing 66.3 ml/min 08/05/23 00:06 Est GFR ( Amer) 79.0 ml/min 08/05/23 00:06 Est GFR (Non-Af Amer) 68.1 ml/min 08/05/23 00:06 BUN/Creatinine Ratio 18.1 (10-20) 08/05/23 00:06 Glucose 122 mg/dl (70-99(Fasting)) H 08/05/23 00:06 Calcium 9.1 mg/dl (8.6-10.3) 08/05/23 00:06 Magnesium 1.6 mg/dl (1.7-2.4) L 08/05/23 00:06 Total Bilirubin 0.6 mg/dl (0.2-1.0) 08/05/23 00:06 AST 24 U/L (13-39) 08/05/23 00:06 ALT 31 U/L (7-52) 08/05/23 00:06 Alkaline Phosphatase 74 U/L (34-104) 08/05/23 00:06 Troponin I High Sens 9.3 pg/ml (0-20) 08/05/23 00:06 B-Natriuretic Peptide 168 pg/ml (0-100) H 08/05/23 00:06 Total Protein 6.1 gm/dl (6.0-8.3) 08/05/23 00:06 Albumin 4.0 gm/dl (3.4-5.0) 08/05/23 00:06 Globulin 2.1 gm/dl (2.5-4.0) L 08/05/23 00:06 Albumin/Globulin Ratio 1.9 (0.9-2) 08/05/23 00:06 SARS-CoV-2 (PCR) POSITIVE (Negative) 08/05/23 00:14 Influenza Type A (PCR) Negative (Neg) 08/05/23 00:14 Influenza Type B (PCR) Negative (Neg) 08/05/23 00:14 RSV (RT-PCR) Negative (Neg) 08/05/23 00:14 Diagnostic Findings Chest x-ray as per my interpretation cardiomegaly, atelectasis EKG as per my interpretation : Rate 45, second-degree AVB Mobitz type I, normal axis, no ischemia
[2023-08-05] MEDS ORDERED: traMADol HCL 50 MG TABLET PO PRN (01:50)
[2023-08-05] MEDS ORDERED: ACETAMINOPHEN 325 MG TAB PO PRN (01:50)
[2023-08-05] MEDS ORDERED: ATROPINE SULFATE 0.1 MG/ML 10ML SYR IV PRN (01:50)
[2023-08-05] MEDS ORDERED: PROMETHAZINE HCL 6.25 MG in SODIUM CHLORIDE 0.9% 50 ML IV PRN (01:50)
[2023-08-05] MEDS: MAGNESIUM SULFATE / D5W 1 GM/100 ML BAG IV SCH (02:31)
[2023-08-05] MEDS: POTASSIUM CHLORIDE CRTAB 20 MEQ TABCR PO STA (02:31)
--- NOTE | 2023-08-05 07:51 | XRay Report ---
XR chest 1V not portable HISTORY: Chest pain, nonspecific COMPARISON: Chest 07/10/2012. FINDINGS: No pneumothorax. No pleural effusions. The cardiac silhouette remains mildly enlarged. Ther e are low lung volumes. The punctate calcified granuloma within the left lower lobe. No focal lung co nsolidations to suggest a pneumonia. No evidence for pulmonary edema. There is a small electronic dev ice overlying the left chest. No acute fractures. IMPRESSION: No significant change compared to the prior study. No acute process. ACT 112: Negative or not required by law. Electronically signed by: Wade Womack M.D. 08/05/2023 7:50 AM
--- NOTE | 2023-08-05 09:08 | Cardiology Consultation ---
Date of Consultation August 05, 2023 Assessment & Plan (1) Dizziness: (2) Vertigo: (3) 1st degree AV block: (4) 2nd degree atrioventricular block: (5) Hypertension: Plan Assessment: 77 year old male with recent vertigo symptoms and diagnosed 1st degree AV block with intermittent Second degree Mobitz type I that was admitted for dizziness, and vertigo requesting cardiology input. Plan: 1. dizziness 2. Vertigo Multifactorial. patient has had ongoing intermittent dizziness that resonates with vertigo type description. Patient is bradycardic and in an intermittent AVB as discussed above; however, is often asymptomatic when assessing patient in conjunction with viewing the monitor. patient also has a positive covid diagnosis, while asymptomatic at this time, had acute URI symptoms 1.5 weeks ago, which may also be contributing to his episodes. Recent Echo 07/19/23 demonstrates normal LVEF, normal wall motion. The basal septum of note is thickened and angulated consistent with sigmoid septum. Mild annular calcification without stenosis, mild MR and mild TR. No acute findings to explain his symptoms. -ZIO monitor in place. 3. 1st degree AV Block 4. 2nd Degree Mobitz type I AV block, intermittent -patient resting comfortably in bed with no symptoms. Telemetry available at bedside demonstrating Active Mobitz type I without symptoms. Further review of telemetry shows no sinus pause of other high grade heart block. -Avoid AV flynn blocking agents -Discussed patient's symptoms at this time with relationship to the progression of conduction system disease as well as explanation of his symptoms. -Case will be discussed with Dr. Cuadra to discuss further intervention. 5. Hypertension -Currently above target, but improved. -patient had been above target at OP appt on 08/01 with cardiology. Lisinopril was increased at that time and his HCTZ was out to a secondary pill. Continue to monitor response. Case has been discussed with Dr. Pavon. Further recommendations regarding plan of care as per his assessment. I spent a total of 40 minutes on the date of service in preparation, delivery, documentation of the care provided to the patient excluding any time spent in the performance of separately billed services. ION Sosa [facility] Supervising Physician Co-Signing Physician Notes I have reviewed the advance practitioner's documentation, and I agree with, and take responsibility for the plan of care. I have personally performed a history and physical examination on the patient. 77-year-old male present to the emergency department with dizziness, lightheadedness, and possible near syncope. Describes episodes recurring on a nightly basis after sleeping several hours, then awakening to use the restroom. Notes feeling "hazy". Denies any loss of consciousness. At times describes symptoms consistent with vertigo "room spinning". Recently evaluated in the cardiology office. Currently wearing a ZIO monitor. Telemetry reveals sinus rhythm with second-degree AV block Mobitz type I with heart rate in the 40s as well as intermittent first-degree AV block with heart rate up to the 50s. No recurrent symptoms since arrival in the ER. Denies chest pain or shortness of breath. PE: Hypertensive, bradycardic. General: NAD, hard of hearing,. Awake and alert. Heart: Irregular rhythm, bradycardia, normal S1-S2. No murmur. Pulmonary: Clear bilateral, no rales, rhonchi, wheeze. Extremities: No edema. Neuro: No focal deficit. A/P: 77-year-old patient presents for evaluation of intermittent lightheadedness, and dizziness as described above. Symptomatic bradycardia in setting of persistent second-degree AV block Mobitz type I. Most significant/severe symptoms occurring during period of elevated vagal tone (sleeping several hours). Remove ZIO monitor and ship overnight to expedite interpretation. Patient remain hospitalized on telemetry for the time being. Discussed potential need for pacemaker implantation for treatment of symptomatic bradycardia. Further recommendations pending ongoing assessment, telemetry monitoring, and review of ZIO monitor. I spent a total of 35 minutes on the date of service in preparation, delivery, and documentation of the care provided to this patient, excluding any time spent in the performance of separately billed services. History of Present Illness Reason for Consultation: symptomatic bradycardia Requesting Physician: Cyrus foote Attending Physician: Mike Rhoades MD History of Present Illness HPI: Patient is a 77 year-old male that presented to the ED with complaints of ongoing dizziness. Patient states that he had been feeling his usual state of health over the past couple days, but had gotten up out of bed the morning of admission complaining of dizziness and a room spinning sensation. He felt unsteady, but did not feel as though he was going to fall or pass out. Patient states that despite getting up and moving around his symptoms did not resolve and there fore he took a Meclizine. He laid back down and felt slight improvement. When he got up to go about his day complained of dizziness again that persisted. Took a second meclizine with mild relief. Because his symptoms persisted he presented to the ED. Of note, Patient was recently hospitalized in late July with similar complaints. There was notation of intermittent 1st degree AVB and Second degree Mobitz Type I AVB with rates in the 40's. He was discharged with a ZIO monitor in place and recommended to follow up with cardiology. Patient was seen by Dr. Capellan on 08/02/2023 in the clinic and was asymptomatic at that time. There is no repeat EKG, but HR was 60bpm on vitals check. He again described his symptoms which appeared Vertiginous in nature. He was noted to be hypertensive and so his lisinopril was increased as well as his Lisinopril and HCTZ pills. EKG on admission demonstrates sinus bradycardia with 2nd degree Mobitz type I AVB Rate 45bpm PMHx: 1. 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 Hypertension 3. Hyperlipidemia 4. Vertigo Patient is resting in the ER bed today without complaint. Monitor reviewed which actively demonstrates SB with Mobitz type 1, rate 46 at bedside with no symptoms. Patient states that he has been out of bed to use the restroom without incident. Nurse at bedside and has completed orthostatic VS which are negative. Patient reports good oral intake. Incidentally, he has tested positive for Covid, remains asymptomatic, but he reports that he had acute URI symptoms approx 1.5 weeks ago. Allergies Allergy/AdvReac Type Severity Reaction Status Date / Time No Known Allergies Allergy Verified 08/05/23 00:35 Home Medications Medication Instructions Recorded Confirmed Type aspirin 325 mg tablet 325 mg PO DAILY 01/04/18 08/05/23 History atorvastatin 40 mg tablet 40 mg PO HS 01/04/18 08/05/23 History felodipine 5 mg tablet,extended 5 mg PO DAILY 01/04/18 08/05/23 History release 24 hr glucosamine-chondroitin 250 mg-200 2 tabs PO DAILY 01/04/18 08/05/23 History mg tablet (Osteo Bi-Flex) multivitamin 1 tab PO DAILY 01/04/18 08/05/23 History meclizine 12.5 mg tablet 12.5 mg PO TID PRN dizziness #5 07/20/23 08/05/23 Rx tabs hydrochlorothiazide 12.5 mg capsule 12.5 mg PO QAM 08/05/23 08/05/23 History lisinopril 10 mg tablet 20 mg PO QAM 08/05/23 08/05/23 History Patient History Medical History Hypertension Kidney stone Encounter for removal of sutures Laceration of thumb, left Social History Smoking Status: Former smoker Tobacco Type: Cigarettes Do You Dip or Chew Tobacco: No; Hx Alcohol Use: Yes Alcohol type: beer Hx Substance Use: No Preferred Language: Malawian Communication Ability: Effective [employer] Required: No Beliefs That Will Affect Care: None Current Living Situation: Other Current Living Situation Comment: Patient lives at home with son Other Information That Helps Us Care for You: No Feels Safe at Home: Yes Safety Concerns: Feels Safe At This Time Assistive Devices: None Review of Systems Review of Systems: All systems reviewed & are unremarkable except as noted in HPI & below Physical Exam Constitutional: well developed and well nourished; no acute distress and not ill appearing Neck: normal visual inspection and trachea midline Respiratory: normal respiratory effort, lungs clear to auscultation Cardiovascular: Rate/Rhythm: regular rhythm and + bradycardic Heart Sounds: normal S1 and normal S2; no murmur Vessels: no JVD Extremities: no edema Skin: no rashes, warm and dry Psychiatric: A+Ox3, euthymic affect Results & Data Vital Signs (Past 12 Hours) Vital Signs Temp Pulse Pulse Resp BP BP Pulse Ox 08/05/23 07:13 42 L 08/05/23 02:51 46 L 18 136/78 96 08/05/23 02:50 08/05/23 02:29 48 L 17 136/78 95 08/05/23 02:00 45 L 18 154/90 H 94 08/05/23 01:28 46 L 17 150/77 H 97 08/05/23 01:04 53 L 20 159/105 H 96 08/05/23 01:01 45 L 19 97 08/05/23 00:31 49 L 12 139/79 94 08/05/23 00:23 08/05/23 00:23 45 L 97 08/05/23 00:17 49 L 13 147/92 H 96 08/05/23 00:04 97 08/05/23 00:04 08/04/23 23:34 45 L 14 144/75 H 97 08/04/23 23:34 45 L 08/04/23 23:22 36.6 C 47 L 20 134/75 98 08/04/23 23:21 46 L 18 144/75 H 97 Pulse Ox O2 Del Method O2 Del Method O2 Flow Rate O2 Flow Rate 08/05/23 07:13 08/05/23 02:51 Room Air 08/05/23 02:50 96 Room Air 0 08/05/23 02:29 08/05/23 02:00 08/05/23 01:28 08/05/23 01:04 Room Air 08/05/23 01:01 08/05/23 00:31 08/05/23 00:23 Room Air 0 08/05/23 00:23 Room Air 08/05/23 00:17 08/05/23 00:04 Room Air 0 08/05/23 00:04 Room Air 0 08/04/23 23:34 08/04/23 23:34 08/04/23 23:22 Room Air 08/04/23 23:21 Room Air Laboratory Results Cardiac Enzymes 08/05/23 Range/Units 00:06 AST 24 (13-39) U/L Troponin I High Sens 9.3 (0-20) pg/ml B-Natriuretic Peptide 168 H (0-100) pg/ml Coagulation 08/05/23 Range/Units 00:06 PT 10.9 (9.0-12.0) Seconds APTT 26 (21-31) Seconds B-Natriuretic Peptide 168 H (0-100) pg/ml CBC 08/05/23 Range/Units 00:06 WBC 8.72 (4.8-10.8) K/ul RBC 4.55 L (4.70-6.10) M/uL Hgb 14.7 (14.0-18.0) g/dl Hct 42.7 (42.0-52.0) % Plt Count 180 (130-400) K/uL Neut # (Auto) 5.57 (1.40-6.50) K/uL Lymph # (Auto) 2.29 (1.20-3.40) K/uL [place] # (Auto) 0.53 (0.11-0.59) K/uL Eos # (Auto) 0.26 (0.00-0.50) K/uL Baso # (Auto) 0.04 (0.00-0.20) K/uL Comprehensive Metabolic Panel 08/05/23 Range/Units 00:06 Sodium 141 (136-145) mmol/L Potassium 3.8 (3.5-5.1) mmol/L Chloride 108 H (98-107) mmol/L Carbon Dioxide 26 (21-32) mmol/L BUN 19 (6-23) mg/dl Creatinine 1.05 (0.6-1.4) mg/dl Glucose 122 H (70-99(Fasting)) mg/dl Calcium 9.1 (8.6-10.3) mg/dl AST 24 (13-39) U/L ALT 31 (7-52) U/L Alkaline Phosphatase 74 (34-104) U/L Total Protein 6.1 (6.0-8.3) gm/dl Albumin 4.0 (3.4-5.0) gm/dl Intake and Output 08/04/23 08/05/23 08/05/23 22:59 06:59 14:59 Intake Total 700 / 700 Balance 700 / 700 Intake: IV 700 / 700 Magnesium Sulfate / D5w 1 gm In 200 / 200 100 ml @ 50 mls/hr IV Q2H COUNT INCLUDES THE [facility] Rx#:[id number] Sodium Chloride 0.9% 500 ml @ 500 / 500 999 mls/hr IV .Q31M ONE Rx#: [id number] Other: Weight 96.2 kg Weight Measurement Method Built in [facility] (5) Hypertension Hypertension type: primary hypertension Qualified Code(s): I10 - Essential (primary) hypertension
[2023-08-05] MEDS: ASPIRIN 325 MG ECTAB PO SCH (09:28)
[2023-08-05] MEDS: FELODIPINE 5 MG TABCR PO SCH (09:28)
[2023-08-05] MEDS: GLUCOSAMINE SULFATE 500 MG CAP PO SCH (09:28)
[2023-08-05] MEDS: lisinopril 20 MG TAB PO SCH (09:29)
[2023-08-05] MEDS: MULTIVITAMIN TAB PO SCH (09:29)
--- NOTE | 2023-08-05 18:58 | Hospitalist Progress Note ---
Date of Service August 05, 2023 Assessment & Plan (1) Dizziness: Plan: Multifactorial: Vertigo description Possible symptomatic bradycardia, history of conduction system disease 5/3 Evaluated by cardiology service today Plan to review Zio patch monitor and based on that, decision will be made for possible pacemaker placement Continue to monitor closely in telemetry unit hypertension, slight elevated valvular heart disease (mild MR/TR) hx TIA, on aspirin and statin Rx prediabetes, hemoglobin A1c of 6.05 April 2023 Hypomagnesemia past tobacco abuse PCU Atropine prn symptomatic bradycardia DVT prophylaxis. SCDs for now re: possible procedure Full code Admission and Anticipated Discharge Date Admission Date: August 05, 2023 Subjective Follow-up for dizziness, bradycardia, etc. Resting in bed, comfortable, not in distress no chest pain, dyspnea, palpitations, dizziness No cough, shortness of breath, fevers or chills Feels okay overall today No other new symptom Review of Systems Review of Systems: all noted and negative except for above Physical Exam Physical Exam: General- oriented x 3, not in distress, speaks in sentences with no effort or accessory muscle use Eyes- anicteric Neck- no JVD Lungs- clear breath sounds bilaterally, no crackles or wheezing Heart- normal rate, regular rhythm; no murmurs Abdomen- normal bowel sounds, nondistended, soft, no tenderness Extremities- no pretibial edema, no calf tenderness Neuro- alert, oriented x 3; no gross focal neurologic deficits Skin- warm & dry Results & Data Results & Data Vital Signs (Past 12 Hours) Vital Signs Temp Pulse Pulse Resp BP BP Pulse Ox 08/05/23 16:21 36.3 C L 65 150/86 H 96 08/05/23 16:08 57 L 08/05/23 14:30 49 L 16 161/91 H 96 08/05/23 13:00 48 L 18 156/88 H 98 08/05/23 12:00 36.9 C 49 L 18 144/91 H 98 08/05/23 09:33 36.8 C 48 L 18 166/93 H 96 08/05/23 07:13 42 L O2 Del Method 08/05/23 16:21 Room Air 08/05/23 16:08 08/05/23 14:30 08/05/23 13:00 08/05/23 12:00 08/05/23 09:33 08/05/23 07:13 all noted and reviewed including below
[2023-08-05] MEDS: ATORVASTATIN 40 MG TAB PO SCH (21:05)
[2023-08-06 07:33] LABS: Basophils # (auto) 0.03 K/uL (0.00-0.20); Basophils % (auto) 0.4 %; Eosinophils # (auto) 0.25 K/uL (0.00-0.50); Eosinophils % (auto) 3.5 %; Hematocrit (blood only) 42.8 % (42.0-52.0); Hemoglobin 14.5 g/dl (14.0-18.0); Immature Granulocytes # (auto) 0.02 K/uL (0.01-0.20); Immature Granulocytes % (auto) 0.3 %; Lymphocytes # (auto) 1.46 K/uL (1.20-3.40); Lymphocytes % (auto) 20.2 %; Mean Corpuscular Hemoglobin 31.9 pg (25.0-34.0); Mean Corpuscular Hgb Conc 33.9 g/dL (32.0-36.0); Mean Corpuscular Volume 94.3 fL (80.0-100.0); Mean Platelet Volume 10.3 fL (9.4-12.4); Monocytes # (auto) 0.43 K/uL (0.11-0.59); Monocytes % (auto) 5.9 %; Neutrophils # (auto) 5.04 K/uL (1.40-6.50); Neutrophils % (auto) 69.7 %; Platelet Count 165 K/uL (130-400); RDW Coefficient of Variation 13.2 % (11.5-14.5); RDW Standard Deviation 45.2 fL (36.4-46.3); Red Blood Count 4.54 M/uL (4.70-6.10); White Blood Count 7.23 K/ul (4.8-10.8)
--- NOTE | 2023-08-06 07:33 | Cardiology Progress Note ---
Date of Service August 06, 2023 Assessment & Plan (1) Dizziness: (2) Vertigo: (3) 1st degree AV block: (4) 2nd degree atrioventricular block: (5) Hypertension: Plan Assessment: 77 year old male with recent vertigo symptoms and diagnosed 1st degree AV block with intermittent Second degree Mobitz type I that was admitted for dizziness, and vertigo requesting cardiology input. Plan: 1. dizziness 2. Vertigo Multifactorial. patient has had ongoing intermittent dizziness that resonates with vertigo type description. Patient is bradycardic and in an intermittent AVB as discussed above; however, is often asymptomatic when assessing patient in conjunction with viewing the monitor. patient also has a positive covid diagnosis, while asymptomatic at this time, had acute URI symptoms 1.5 weeks ago, which may also be contributing to his episodes. Recent Echo 07/19/23 demonstrates normal LVEF, normal wall motion. The basal septum of note is thickened and angulated consistent with sigmoid septum. Mild annular calcification without stenosis, mild MR and mild TR. No acute findings to explain his symptoms. -[employer] monitor has been removed. Spoke with our office yesterday and was able to get an overnight shipping label. Son brought box in with label, monitor has been overnighted to the company. -Review of telemetry has demonstrates a pause of 3.3 seconds overnight. discussed findings with patient/family and Dr. Parra. -Plan is to continue current medication therapies, avoid any AV flynn blocking agents. Continue to monitor on telemetry and will make patient NPO over night for possible PPM placement on Tuesday with Dr. York. 3. 1st degree AV Block 4. 2nd Degree Mobitz type I AV block, intermittent -patient resting comfortably in bed with no symptoms. Telemetry available at bedside demonstrating Active Mobitz type I without symptoms. Further review of telemetry shows no sinus pause of other high grade heart block. -Avoid AV flynn blocking agents -Discussed patient's symptoms at this time with relationship to the progression of conduction system disease as well as explanation of his symptoms. -Sinus pause overnight 3.3 seconds at 0140. -Continue to monitor on telemetry. NPO after midnight of Tuesday for possible PPM Tuesday 5. Hypertension -Currently above target, but continues to improve. -Continue Lisinopril 20mg Daily, Felodipine 5 mg Daily. -may consider patient's home dose of HCTZ if numbers remain above target. Case has been discussed with Dr. Parra. Further recommendations regarding plan of care as per his assessment. I spent a total of 30 minutes on the date of service in preparation, delivery, documentation of the care provided to the patient excluding any time spent in the performance of separately billed services. ION Sosa [facility] Admission and Anticipated Discharge Date Admission Date: August 05, 2023 Supervising Physician Co-Signing Physician Notes I have reviewed the advance practitioner's documentation, and I agree with, and take responsibility for the plan of care. I have personally performed a history and physical examination on the patient. 77-year-old male present to the emergency department with dizziness, lightheadedness, and possible near syncope. Describes episodes recurring on a nightly basis after sleeping several hours, then awakening to use the restroom. Notes feeling "hazy". Denies any loss of consciousness. At times describes symptoms consistent with vertigo "room spinning". Recently evaluated in the cardiology office. Currently wearing a ZIO monitor. Overnight patient did have ~3 second sinus pause. But no high degree AV block. Remains in a Mobitz type 1. EP evaluation for Tuesday for possible PPM. Keep NPO after midnight on Tuesday. I spent a total of 35 minutes on the date of service in preparation, delivery, and documentation of the care provided to this patient, excluding any time spent in the performance of separately billed services. Subjective 08/06/2023: Patient seen and examined today in follow up. Resting comfortably in bed visiting with family. Denies any acute concerns. Denies chest pain, pressure, palpitations, shortness of breath, PND, pre- syncope, syncope or edema. labs, vitals, diagnostics, telemetry and documentation reviewed. Review of telemetry demonstrates Sinus Bradycardia with Second degree AV block, Mobitz I rates in the 40-50's. Overnight, there is evidence of sinus pause. Longest pause was noted to be 3.3seconds and took place at 0140 this am. patient was asleep at that time. Review of Systems Review of Systems: All systems reviewed & are unremarkable except as noted in HPI & below Physical Exam Constitutional: well developed and well nourished; no acute distress and not ill appearing Neck: normal visual inspection and trachea midline Respiratory: normal respiratory effort, lungs clear to auscultation Cardiovascular: Rate/Rhythm: regular rhythm and + bradycardic Heart Sounds: normal S1 and normal S2; no murmur Vessels: no JVD Extremities: no edema Skin: no rashes, warm and dry Psychiatric: A+Ox3, euthymic affect Results & Data Vital Signs (Past 12 Hours) Vital Signs Temp Pulse Pulse Resp BP Pulse Ox O2 Del Method 08/06/23 03:00 36.8 C 57 L 16 146/77 H 95 Room Air 08/05/23 22:53 36.3 C L 57 L 18 122/69 95 Room Air 08/05/23 22:15 48 L Laboratory Results CBC 08/06/23 Range/Units 06:31 WBC 7.23 (4.8-10.8) K/ul RBC 4.54 L (4.70-6.10) M/uL Hgb 14.5 (14.0-18.0) g/dl Hct 42.8 (42.0-52.0) % Plt Count 165 (130-400) K/uL Neut # (Auto) 5.04 (1.40-6.50) K/uL Lymph # (Auto) 1.46 (1.20-3.40) K/uL [place] # (Auto) 0.43 (0.11-0.59) K/uL Eos # (Auto) 0.25 (0.00-0.50) K/uL Baso # (Auto) 0.03 (0.00-0.20) K/uL Comprehensive Metabolic Panel 08/06/23 Range/Units 06:31 Sodium 139 (136-145) mmol/L Potassium 4.3 (3.5-5.1) mmol/L Chloride 106 (98-107) mmol/L Carbon Dioxide 27 (21-32) mmol/L BUN 18 (6-23) mg/dl Creatinine 1.10 (0.6-1.4) mg/dl Glucose 115 H (70-99(Fasting)) mg/dl Calcium 8.8 (8.6-10.3) mg/dl Intake and Output 08/05/23 08/06/23 08/06/23 22:59 06:59 14:59 Intake Total 250 / 890 640 / 890 Output Total 326 / 576 250 / 576 Balance -76 / 314 390 / 314 Intake: Oral 250 / 890 640 / 890 Output: Urine 325 / 575 250 / 575 # Bowel Movements Other: # Unmeasured Voids 2 1 Weight 94.3 kg Weight Measurement Method Built in [facility] (5) Hypertension Hypertension type: primary hypertension Qualified Code(s): I10 - Essential (primary) hypertension
[2023-08-06 07:45] LABS: BUN Creatinine Ratio 16.4 (10-20); Calcium 8.8 mg/dl (8.6-10.3); Creatinine Clr Calc Pharmacy 62.7 ml/min; Est GFR (African American) 74.7 ml/min; Est GFR (Non-African American) 64.4 ml/min; Magnesium 1.8 mg/dl (1.7-2.4); Potassium 4.3 mmol/L (3.5-5.1)
[2023-08-06] MEDS: MECLIZINE 12.5 MG TAB PO PRN (08:29)
--- NOTE | 2023-08-06 16:07 | Hospitalist Progress Note ---
Date of Service August 06, 2023 Assessment & Plan (1) Dizziness: Plan: Multifactorial: Vertigo description Possible symptomatic bradycardia, history of conduction system disease 08/04 Evaluated by cardiology service today Plan to review Zio patch monitor and based on that, decision will be made for possible pacemaker placement Continue to monitor closely in telemetry unit 08/05 Patient had 2 episodes of sinus pause, 3 seconds overnight Asymptomatic at that point as per patient Plan for possible pacemaker evaluation on Tuesday hypertension -Continue lisinopril valvular heart disease (mild MR/TR) hx TIA, on aspirin and statin Rx prediabetes, hemoglobin A1c of 6.05 April 2023 past tobacco abuse DVT prophylaxis. SCDs for now re: possible procedure Full code Disposition Pending Lives at home Admission and Anticipated Discharge Date Admission Date: August 05, 2023 Subjective Follow-up for dizziness, bradycardia, etc. Seen resting in bed, not in distress States he is having some nausea No dizziness, chest pain, palpitations, shortness of breath Feels he may have had too much food this morning No other new symptoms Review of Systems Review of Systems: all noted and negative except for above Physical Exam Physical Exam: General- oriented x 3, not in distress, speaks in sentences with no effort or accessory muscle use Eyes- anicteric Neck- no JVD Lungs- clear breath sounds bilaterally, no crackles or wheezing Heart- normal rate, regular rhythm; no murmurs Abdomen- normal bowel sounds, nondistended, soft, nontender Extremities- no pretibial edema, no calf tenderness Neuro- alert, oriented x 3; no gross focal neurologic deficits Skin- warm & dry Results & Data Results & Data Vital Signs (Past 12 Hours) Vital Signs Temp Pulse Resp BP Pulse Ox O2 Del Method 08/06/23 12:48 36.6 C 54 L 18 145/70 H 95 Room Air 08/06/23 12:00 71 08/06/23 08:07 36.6 C 52 L 17 149/73 H 96 Room Air all noted and reviewed including below
--- OUTSIDE RECORDS SUMMARY | 2023-08-07 06:09 | External Medical Summary | Summary of Care ---
Author Name Unknown Organization [facility] Address [address] [facility] [place] [address] Phone [phone] Care Team Providers Care Baseball Inspector And Repairer Name Role Phone Facundo Mcgill DO Primary Care Provider Reason for Referral * Evaluate & Treat - Unlimited Visits (Within 3 days (urgent)) - Pending Review Specialty Diagnoses / Procedures Referred By Contact Referred To Contact Cardiovascular Medicine / Cardiology Diagnoses Mobitz (type) I (Wenckebach's) atrioventricular block AV block, 1st degree Facundo Mcgill DO [address] [place] [address] Referral ID Status Reason Start Date Expiration Date Visits Requested Visits Authorized [id number] Pending Review Specialty Services Required 07/25/[phone] Question Answer Referral Priority Within 3 days (urgent) Where should this appointment be scheduled? [facility] To which of the following clinics are you referring your patient? General Cardiology Clinic Comments Hospital f/u Reason for Visit * Reason Comments Hospital Follow-Up Pt here with Marcie Simon ok, daughter. Pt here for hospital f/u. Admitted to [facility] on 07/19/2023 and discharged next day for vertigo. Occasional vertigo noted from sit to stand position, Pt began with sore throat, head congestion and runny nose. Occasional cough noted. Encounter Details Date Type Department Care Team (Latest Contact Info) Description 07/25/2023 1:40 PM EDT Office Visit [facility] [address] [place] [phone] Facundo Mcgill DO [address] [place] [address] Mobitz (type) I (Wenckebach's) atrioventricular block*; AV block, 1st degree; Prediabetes; Dyslipidemia, goal LDL below 100; HTN, goal below 130/80; Obesity, Class I, BMI 30.0-34.9 (see actual BMI) Allergies No known active allergiesdocumented as of this encounter (statuses as of 07/25/2023) Medications Medication Sig Dispensed Refills Start Date [...] once daily 90 Tablet 3 01/19/2023 Active Meclizine HCl 12.5 MG Oral Tablet (Antivert) Take 1 Tablet by mouth 3 times a day as needed. 0 07/20/2023 Active documented as of this encounter (statuses as of 07/25/2023) Active Problems Problem Noted Date Diagnosed Date Family history of dementia 07/25/2023 Proteinuria 10/02/2021 Prediabetes 08/14/2018 Overview: Per Prediabetes protocol #1 History of kidney stones 07/28/2018 Irritable colon 10/25/2016 Hx of transient ischemic attack (TIA) 10/25/2016 BPH without obstruction/lower urinary tract symp toms 02/11/2014 Dyslipidemia, goal LDL below 100 10/11/2013 Obesity, Class I, BMI 30.0-34.9 (see actual BMI) 05/30/2012 Eczema 11/23/2011 HTN, goal below 130/80 05/28/2010 documented as of this encounter (statuses as of 07/25/2023) Resolved Problems Problem Noted Date Diagnosed Date Resolved Date Dyslipidemia 10/02/2021 07/25/2023 Weak urinary stream 05/18/2013 10/26/19 17 Renal calculus 11/14/2012 07/28/2018 TIA (transient ischemic attack) 05/28/2010 10/25/2016 Obesity, Class II, BMI 35-39 .9, isolated (see actual BMI) 05/28/2010 05/30/2012 documented as of this encounter (statuses as of 07/25/2023) Immunizations Name Administration Dates Next Due COVID-19 mRNA, LNP-s, No Pre serve, 2-Dose Series ([employer]) 08/06/2020,07/16/2020 DTP Vaccine 10/06/2013 Pneumococcal Conjugate Vacc, [...] 04/04/1990 Smokeless Tobacco: Former Snuff Quit: 04/04/1990 Tobacco Cessation:Counseling Given: Not Answered Comments:for a few years Alcohol Use Standard [...] Sign Reading Time Taken Comments Blood Pressure 102/60 07/25/2023 1:30 PM EDT Pulse 96 07/25/2023 1:30 PM EDT Temperature 37.1 C (98.7 F) 07/25/2023 1:30 PM ED T Respiratory Rate 16 07/25/2023 1:30 PM EDT Oxygen Saturation 97% 07/25/2023 1:30 PM EDT Inhaled Oxygen Concentration - - Weight 95.4 kg (210 lb 4 oz) 07/25/2023 1:30 PM EDT Height - - Body Mass Index 31.97 12/24/2022 10:55 AM EDT documented in this encounter Progress Notes * Facundo Mcgill, - 07/25/2023 1:44 PM EDT Images from the original note were not included. Assessment and Plan Mobitz (type) I (Wenckebach's) atrioventricular block Needs f/u with cardiology Zio patch and assessment based on those results In mean time needs to be monitoring blood pressure accurately at home - CARDIOLOGY REFERRAL OP AV block, 1st degree - CARDIOLOGY REFERRAL OP Prediabetes - COMPREHENSIVE METABOLIC PANEL; Future - HEMOGLOBIN A1C; Future Dyslipidemia, goal LDL below 10 - COMPREHENSIVE METABOLIC PANEL; Future - LIPID PANEL WITH DIRECT LDL IF TG IS HIGH; Future HTN, goal below 130/80 - CBC WITH WBC DIFFERENTIAL; Future - ALBUMIN / CREATININE RATIO, URINE; Future Obesity, Class I, BMI 30.0-34.9 (see actual BMI) History of Present Illness Freddy Neil is a 77 year old male that presents for Hospital Follow-Up (Pt here with Marcie Anthony, daughter. Pt here for hospital f/u. Admitted to [facility] on 07/19/2023 and discharged next day for vertigo. Occasional vertigo noted from sit to stand position, Pt began with sore throat, headcongestion and runny nose. Occasional cough noted.) Patient presents today in follow-up from recent hospitalization. Patient was hospitalized for dizziness and lightheadedness, history of TIA in the past. During his admission patient was found to haveAV block type line as well as type Wenckebach phenomenon. Patient was seen by Cardiology and they have planned for outpatient rhythm monitoring as well as follow-up. Blood pressure while admitted waselevated most of the time, however today is nearly hypotensive. Patient states that he has an old blood pressure cuff but that is values at home fluctuate widely. He has been compliant with his medication, there are no concerns that he is having difficulty remembering his medications. Admission date - 07/19/23, discharge 07/20/23 [facility] Physical Exam Vitals: 07/25/23 1330 Temp: 37.1 C (98.7 F) Pulse: 96 Resp: 16 SpO2: 97% BP: 102/60 Physical Exam Constitutional: Appearance: Normal appearance. HENT: Head: Normocephalic and atraumatic. Eyes: Extraocular Movements: Extraocular movements intact. Pupils: Pupils are equal, round, and reactive to light. Cardiovascular: Rate and Rhythm: Normal rate. Rhythm irregular. Pulmonary: Effort: Pulmonary effort is normal. Breath sounds: Normal breath sounds. Neurological: General: No focal deficit present. Mental Status: He is alert and oriented to person, place, and time. Psychiatric: Mood and Affect: Mood normal. Behavior: Behavior normal. Wrap-Up Follow-up: Return in about 6 months (around 01/24/2024). | Check-out note: Ensure cardiology f/u 4 weeks after zio patch placement Keep currently scheduled visit in October then 6 months after Time: Total time today was 41 minutes excluding any time spent in the performance of separately billed services. documented in this encounter Nursing Notes * Dipti Pickett LPN - 07/25/2023 1:39 PM EDT The patient has been properly identified by confirmation of name and date of . Chief Complaint Patient presents with Hospital Follow-Up Pt here with Marcie Anthony, daughter. Pt here for hospital f/u. Admitted to [facility] on 07/19/2023 and discharged next day for vertigo. Occasional vertigo noted from sit to stand position, Pt began with sore throat, head congestion and runny nose. Occasional cough noted. documented in this encounter Plan of Treatment Upcoming Encounters Date Type Department Care Team (Late st Contact Info) Description 08/01/2023 1:00 PM EDT Cardiac Studies Cardiac Studies, [facility] [address] [place] [address] 09/01/2023 11:00 AM EDT Office Visit Cardiology, [facility] [address] [place] [address] Ger Alvarado, DO [address] [place] [address] 10/27/2023 10:00 AM EDT Office Visit [facility] [address] [place] [address] Facundo Mcgill, DO [address] [place] [address] 12/26/2023 10:30 AM EDT Nurse Only Ancillary [facility] [address] [place] [address] Aaron, Nurse Annual Wellness [facility] [address] [place] [address] 05/15/2024 8:00 AM EST Office Visit [facility] [address] [place] [address] Facundo Mcgill, DO [address] [place] [address] Scheduled Orders Name Type Priority Associated Diagnoses Orde r Schedule CBC WITH WBC DIFFERENTIAL Lab Routine HTN, goal below 130/80 Expected: 10/23/2023 (Approximate), Expires: 07/24/2024 COMPREHENSIVE METABOLIC PANEL Lab Routine Prediabetes Dyslipidemia, goal LDL below 100 Expected: 10/23/2023 (Approximate), Expires: 07/24/2024 HEMOGLOBIN A1C Lab Routine Prediabetes Expected: 10/23/2023 (Approximate), Expires: 07/24/2024 ALBUMIN / CREATININE RATIO, URINE Lab Routine HTN, goal below 130/80 Expected: 10/23/2023 (Approximate), Expires: 07/24/2024 LIPID PANEL WITH DIRECT LDL IF TG IS HIGH Lab Routine Dyslipidemia, goal LDL below 100 Expected: 10/23/2023 (Approximate), Expires: 07/24/2024 Scheduled Referrals Name Type Priority Associated Diagnoses Orde r Schedule CARDIOLOGY REFERRAL OP Referral Within 3 days (urgent) Waylon (type) I (Wenckebach's) atrioventricular block AV block, 1st degree Ordered: 07/25/2023 Health Maintenance Due Date Last Done Comments [...] as of this encounter Visit Diagnoses Diagnosis Mobitz (type) I (Wenckebach's) atrioventricular block- Primary Other second degree atrioventricular block AV block, 1st degree First degree atrioventricular block Prediabetes Other abnormal glucose Dyslipidemia, goal LDL below 100 Other and unspecified hyperlipidemia HTN, goal below 130/80 Unspecified essential hypertension Obesity, Class I, BMI 30.0-34.9 (see actual [...] and were consensually agreed upon. Care Teams Baseball Inspector And Repairer Relationship Specialty Start Date End Date Facundo Mcgill DO [address] [place] [address] PCP - General Family Medicine 11/07/17 documented as of this encounter"
--- OUTSIDE RECORDS SUMMARY | 2023-08-07 06:09 | External Medical Summary | Summary of Care ---
Author Name Unknown Organization [facility] Address [address] [facility] [address] Phone [phone] Care Team Providers Care Nutrition Services Aide Name Role Phone Facundo Mcgill Primary Care Provider Encounter Details Date Type Department Care Team (Late st Contact Info) Description 07/20/2023 Telephone Cardiology, [facility] [address] [place] [address] Kathie Duran CRNP [address] [place] [phone] Allergies No known active allergiesdocumented as of this encounter (statuses as of 07/26/2023) Medications Medication Sig Dispensed Refills Start Date [...] as of this encounter (statuses as of 07/26/2023) Active Problems Problem Noted Date Diagnosed Date [...] as of this encounter (statuses as of 07/26/2023) Resolved Problems Problem Noted Date Diagnosed Date Resolved Date Dyslipidemia 10/02/2021 07/25/2023 Weak urinary stream 05/18/2013 10/26/19 17 Renal calculus 11/14/2012 07/28/2018 TIA (transient ischemic attack) 05/28/2010 10/25/2016 Obesity, Class II, BMI 35-39 .9, isolated (see actual BMI) 05/28/2010 05/30/2012 documented as of this encounter (statuses as of 07/26/2023) Immunizations Name Administration Dates Next Due COVID-19 mRNA, LNP-s, No Pre serve, 2-Dose Series ([employer]) 08/06/2020,07/16/2020 DTP Vaccine 10/06/2013 Pneumococcal Conjugate Vacc, [...] encounter Miscellaneous Notes * Telephone Encounter - Wade Edwards OSA - 07/26/2023 3:29 PM EDT Patient has been called and is aware of the date and time for the Hosp DC with Dr. Capellan on: 08/02/2023 Status: Milind Time: 2:00 PM Length: 30 Visit Type: NEW CARDIOLOGY [87248] Reg Status: Verified * Telephone Encounter - Wade Edwards OSA - 07/20/2023 12:50 PM EDT I have those CLOS RET/REL, but I cannot schedule with Timi at least 2 days before the appt slot. Please let me know , thank you. * Telephone Encounter - Kathie Duran CRNP - 07/20/2023 12:43 PM EDT This patient is known to the barbara and Dr. Capellan - are we able to schedule the patient with the providers who have evaluated this patient inpatient. * Telephone Encounter - Wade Edwards OSA - 07/20/2023 11:10 AM EDT Patient is scehduled with Dr. Pavon as a new patient on: 08/16/23 at 11 am Date: 08/16/2023 Status: Milind Time: 11:00 AM Length: 30 Visit Type: NEW CARDIOLOGY [00577] Reg Status: Verified Copay: $40.00 Provider: Ambrose Pavon DO And for the ZIO: Tuesday Appt at 1:00 AM (15 min) Both here at , thank you. * Telephone Encounter - Kathie Duran CRNP - 07/20/2023 10:56 AM EDT Patient admitted to [facility] on 07/19/2023. Anticipate Discharge within the next 24 to 48 hours. Scheduling: Please assist with [facility] follow-up within the next 6-8 weeks. Patient is considered new. Known to the barbara and Dr. Capellan inpatient. If scheduling with please allow 60 minutes for this appointment and label appt [facility]. Will need a 14 day zio PRIOR to follow up. Thanks, ION Garcia Cardiology progress note 07/20/2023 IMPRESSION: 77-year-old male presented for evaluation of symptoms of dizziness. Symptoms by description are vertiginous in nature with spinning. No lightheadedness or near syncope. Found to be in the ER sinus rhythm with first-degree AV block (chronic on EKG in 2014) plus additional episodes of transient Mobitz type I second-degree AV block. Episodes did not correlate with symptoms. Echo: Normal LVEF of 60-65%, Mild mixed valvular insufficiency. Lyme negative. TSH normal. No evidence of CVA on MRI. Nocturnal pulse ox with x1 desaturation lasting 30 seconds at 82%. Not on AVN blocking agents. PLAN: Dizziness/Conduction system disease: Dizziness has some qualities of vertigo to the symptoms described-- consider trial of meclizine However, he is having intermittent Wenckebach on telemetry-- No significant pauses over night. No indication for ppm at this time. No significant desaturations of nocturnal pulse ox. Avoid AVN blocking agents at this time. Will plan on outpatient zio monitor at discharge. K goal of 4.0 and mag goal of 2.0-- replace as needed. Hypertension: BP improving after morning medication administration. Will need to continue to monitor and titrate dosage as needed. Continue Lisinopril-HCTZ and Felodipine as ordered. documented in this encounter Plan of Treatment Upcoming Encounters Date Type Department Care Team (Late st Contact Info) Description 08/01/2023 1:00 PM EDT Cardiac Studies Cardiac Studies, [facility] [address] [place] [address] 08/02/2023 2:00 PM EDT Office Visit Cardiology, [facility] [address] [place] [address] Terry Capellan MD [address] [place] [address] 10/27/2023 10:00 AM EDT Office Visit Family Practice [facility] [address] [place] [address] Facundo Mcgill DO [address] [place] [address] 12/26/2023 10:30 AM EDT Nurse Only Ancillary [facility] [address] [place] [address] Aaron, Nurse Annual Wellness [facility] [address] [place] [address] 05/15/2024 8:00 AM EST Office Visit Family [facility] [address] [place] [address] Facundo Mcgill, [address] [place] [address] Scheduled Orders Name Type Priority Associated Diagnoses Orde r Schedule EXTERNAL EKG 8 TO 15 DAYS Holter Routine Atrioventricular block, Mobitz type 1, Wenckebach Dizziness Expected: 07/21/2023 (Approximate), Expires: 07/19/2024 Health Maintenance Due Date Last Done Comments [...] Completed 02/19/2015, 10/09/2010 Zoster Vaccines Completed 09/24/2019, 03/09/2019, 11/18/2010 Influenza Vaccine (FLU shot) Completed , [...] as of this encounter Visit Diagnoses Diagnosis Atrioventricular block, Mobitz type 1, Wenckebach- Primary Other second degree atrioventricular block Dizziness Dizziness and giddiness documented in this encounter Advance Directives Latest [...] and were consensually agreed upon. Care Teams Nutrition Services Aide Relationship Specialty Start Date End Date Facundo Mcgill DO [address] [place] [address] PCP - General Family Medicine 11/07/17 documented as of this encounter
--- OUTSIDE RECORDS SUMMARY | 2023-08-07 06:09 | External Medical Summary | Summary of Care ---
Author Name Unknown Organization [facility] Address [address] [facility] [place] [address] Phone [phone] Care Team Providers Care Paver Installer Name Role Phone Facundo Mcgill Primary Care Provider Reason for Visit * Reason Onset Date Comments Hospital Follow-Up 07/21/2023 YAJAIRA Encounter Details Date Type Department Care Team (Late st Contact Info) Description 07/21/2023 Telephone [place] [address] [facility] [place] [address] Whit Brooks RN Hospital Follow-Up (YAJAIRA) Allergies No known active allergiesdocumented as of this encounter (statuses as of 07/21/2023) Medications Medication Sig Dispensed Refills Start Date [...] as of this encounter (statuses as of 07/21/2023) Active Problems Problem Noted Date Diagnosed Date [...] as of this encounter (statuses as of 07/21/2023) Resolved Problems Problem Noted Date Diagnosed Date Resolved Date Weak urinary stream 05/18/2013 10/26/19 17 Renal calculus 11/14/2012 07/28/2018 TIA (transient ischemic attack) 05/28/2010 10/25/2016 Obesity, Class II, BMI 35-39 .9, isolated (see actual BMI) 05/28/2010 05/30/2012 documented as of this encounter (statuses as of 07/21/2023) Immunizations Name Administration Dates Next Due COVID-19 mRNA, LNP-s, No Pre serve, 2-Dose Series ([employer]) 08/06/2020,07/16/2020 DTP Vaccine 10/06/2013 Pneumococcal Conjugate Vacc, [...] encounter Miscellaneous Notes * Telephone Encounter - Whit Brooks RN - 07/21/2023 3:05 PM EDT Transitions of Care Note Reason for Referral:Recent Admission Phone visit for follow up: YAJAIRA #1 Admitted to: [facility], Date: 07/19/2023 Discharged to: Home, Date: 07/20/2023 Diagnosis driving hospitalization: Vertigo Attempted YAJAIRA - no answer. Left message for patient to return call [phone] or . Can forward to me if patient returns call. Whit Brooks RN documented in this encounter Plan of Treatment Upcoming Encounters Date Type Department Care Team (Late st Contact Info) Description 07/25/2023 1:40 PM EDT Office Visit [facility] [address] [place] [address] Facundo Mcgill DO [address] [facility] [place] [address] 08/01/2023 1:00 PM EDT [facility] [address] [place] [address] 10/27/2023 10:00 AM EDT Office Visit Family Practice [facility] [address] [place] [address] Facundo Mcgill, DO [address] [place] [address] 12/26/2023 10:30 AM EDT Nurse Only Ancillary [facility] [address] [place] [address] Aaron, Nurse Annual Wellness [facility] [address] [facility] [place] [address] Health Maintenance Due Date Last Done Comments [...] Not on filedocumented as of this encounter Advance Directives Latest Code Status [...] and were consensually agreed upon. Care Teams Paver Installer Relationship Specialty Start Date End Date Facundo Mcgill DO [address] [place] [address] PCP - General Family Medicine 11/07/17 documented as of this encounter
--- OUTSIDE RECORDS SUMMARY | 2023-08-07 06:09 | External Medical Summary | Summary of Care ---
Author Name Unknown Organization [facility] Address [address] [facility] [place] [address] Phone [phone] Care Team Providers Care Accounts Payable Technician Name Role Phone Facundo Mcgill DO Primary Care Provider Reason for Visit * Reason Onset Date Comments Advice 07/21/2023 Encounter Details Date Type Department Care Team (Late st Contact Info) Description 07/21/2023 Telephone Family Practice [facility] [address] [place] [phone] Facundo Mcgill DO [address] [place] [address] Advice Allergies No known active allergiesdocumented as of this encounter (statuses as of 07/23/2023) Medications Medication Sig Dispensed Refills Start Date [...] as of this encounter (statuses as of 07/23/2023) Active Problems Problem Noted Date Diagnosed Date [...] as of this encounter (statuses as of 07/23/2023) Resolved Problems Problem Noted Date Diagnosed Date Resolved Date Weak urinary stream 05/18/2013 10/26/19 17 Renal calculus 11/14/2012 07/28/2018 TIA (transient ischemic attack) 05/28/2010 10/25/2016 Obesity, Class II, BMI 35-39 .9, isolated (see actual BMI) 05/28/2010 05/30/2012 documented as of this encounter (statuses as of 07/23/2023) Immunizations Name Administration Dates Next Due COVID-19 mRNA, LNP-s, No Pre serve, 2-Dose Series ([employer]) 08/06/2020,07/16/2020 DTP Vaccine 10/06/2013 Pneumococcal Conjugate Vacc, [...] encounter Miscellaneous Notes * Telephone Encounter - Andra Mari LPN - 07/23/2023 12:27 PM EDT Called pt-- Feeling okay. BP machine stated a reading of 175/85 this morning. Took lisinopril-htc this morning 45 mins prior to reading. Informed pt of message below and he denies any lightheaded/dizziness/CP/SOB. He will be aware of these Sx and states he would like to stay at one tab of medication until his appt with Artem 07/25/2023. Informed pt to bring Bp cuff/machine with him at OV. * Telephone Encounter - Gem Herzog CRNP - 07/22/2023 3:29 PM EDT Reviewed his labs -- he could double his lisinopril-hctz (take 2 tabs) until his visit with Dr Mcgill if they'd like but if there's any concern about accuracy of cuff and he otherwise feels ok (dizziness is about what it was in hospital and no worse and no other symptoms like chest pain, SOB) he could also wait until Tuesday to see what in-office reading is. If he does increase the dose to two tabs please let dr mcgill know at visit because he will need follow up labs and BP check 2 weeks after making the change * Telephone Encounter - Dariela Figueroa LPN - 07/22/2023 3:24 PM EDT Called and s/w daughter. This reading was 180/94 today, and both readings from yesterday and today were after BP med. Unsure of timeframe from med to when pressure was taken. Denies CP, SOB, no othersymptoms. Daughter is concerned that this is a home BP cuff, so not sure of accuracy. Daughter toldhim to rest prior to BP test, and I agree. * Telephone Encounter - Gem Herzog CRNP - 07/22/2023 1:19 PM EDT Is that blood pressure prior to taking his medication for BP? Would recommend taking BP at home at least 1 hour after taking his medications, keep log at home, and bring to visit on Tuesday Any chest pain or stroke-like symptoms with blood pressure readings >180/90 recommend ER again * Telephone Encounter - Tuyet Clemnets OSA - 07/21/2023 9:08 AM EDT Patient daughter calling in stating patient is now home but is still experiencing dizziness, BP is still elevated this AM-179/80 or 90. She would like to know what they should do until appt on tuesday documented in this encounter Plan of Treatment Upcoming Encounters Date Type Department Care Team (Late st Contact Info) Description 07/25/2023 1:40 PM EDT Office Visit [facility] [address] [place] [address] Facundo Mcgill, [address] [place] [address] 08/01/2023 1:00 PM EDT Cardiac Studies Cardiac Studies, [facility] [address] [place] [address] 10/27/2023 10:00 AM EDT Office Visit [facility] [address] [place] [address] Facundo Mcgill, [address] [place] [address] 12/26/2023 10:30 AM EDT Nurse Only Ancillary [facility] [address] [place] [address] [facility], Nurse Annual Wellness [facility] [address] [place] [address] Health Maintenance Due Date Last Done Comments COVID-19 Vaccine (3 - 2022-24 season) 2022 08/06/2020, 07/16/2020 DTaP,Tdap,and Td Vaccines [...] and were consensually agreed upon. Care Teams Accounts Payable Technician Relationship Specialty Start Date End Date Facundo Mcgill DO [address] [place] [address] PCP - General Family Medicine 11/07/17 documented as of this encounter
--- OUTSIDE RECORDS SUMMARY | 2023-08-07 06:09 | External Medical Summary | Summary of Care ---
Author Name Unknown Organization [facility] Address [address] [facility] [place] [address] Phone [phone] Care Team Providers Care Beef Grader Name Role Phone Facundo Mcgill DO Primary Care Provider Reason for Visit * Reason Onset Date Comments Advice 08/03/2023 Encounter Details Date Type Department Care Team (Late st Contact Info) Description 08/03/2023 Telephone Cardiology, [facility] [address] [place] [id number] Terry Capellan MD [address] [place] [address] Advice Allergies No known active allergiesdocumented as of this encounter (statuses as of 08/04/2023) Medications Medication Sig Dispensed Refills Start Date End Date Status MULTIVITAMINS PO TABS None Entered 0 Active OSTEO BI-FLEX JOINT SHIELD PO TABS None Entered 0 Active aspirin 325 MG Tablet Take 1 Tablet by mouth in the morning. 0 Active Lisinopril-hydroCHLO ROthiazide 10-12.5 MG Oral TabletIndications:HT N, goal below 130/80 Take 1 Tablet by mouth in the morning. 90 Tablet 3 10/21/2022 Active Atorvastatin Calcium 40 MG Oral Tablet (Lipitor)Indications :Dyslipidemia, goal LDL below 100 Take 1 Tablet by mouth in the morning. 90 Tablet 3 12/28/2022 Active Felodipine ER 5 MG Oral Tablet Extended Release 24 Hour (Plendil)Indications :HTN, goal below 130/80 Take 1 tablet by mouth once daily 90 Tablet 3 01/19/2023 Active Meclizine HCl 12.5 MG Oral Tablet (Antivert) Take 1 Tablet by mouth 3 times a day as needed. 0 07/20/2023 Active Lisinopril 10 MG Oral Tablet (Prinivil) Take 2 Tablets by mouth in the morning. 180 Tablet 5 08/02/2023 Active hydroCHLOROthiazide 12.5 MG Oral Capsule Take 1 Capsule by mouth in the morning. 90 Capsule 3 08/02/2023 Active documented as of this encounter (statuses as of 08/04/2023) Active Problems Problem Noted Date Diagnosed Date [...] as of this encounter (statuses as of 08/04/2023) Resolved Problems Problem Noted Date Diagnosed Date Resolved Date Dyslipidemia 10/02/2021 07/25/2023 Weak urinary stream 05/18/2013 10/26/19 17 Renal calculus 11/14/2012 07/28/2018 TIA (transient ischemic attack) 05/28/2010 10/25/2016 Obesity, Class II, BMI 35-39 .9, isolated (see actual BMI) 05/28/2010 05/30/2012 documented as of this encounter (statuses as of 08/04/2023) Immunizations Name Administration Dates Next Due COVID-19 mRNA, LNP-s, No Pre serve, 2-Dose Series ([employer]) 08/06/2020,07/16/2020 DTP Vaccine 10/06/2013 Pneumococcal Conjugate Vacc, [...] encounter Miscellaneous Notes * Telephone Encounter - Elieser Lang RN - 08/04/2023 9:39 AM EDT Called and spoke to patient's daughter Marcie. Reviewed the message with her from Dr. Capellan. She stated she understood. She stated her father is much better today. She stated she will give him the message. * Telephone Encounter - Terry Capellan MD - 08/03/2023 4:21 PM EDT Check heart rate when symptoms occur. If Complaints persist may need ER evaluation once again * Telephone Encounter - Elieser Lang RN - 08/03/2023 12:10 PM EDT Patient's daughter Marcie called the clinic and stated that her father called her and stated he was was having severe dizziness this am He took a Meclizine at 7:00 am and didn't help and took another one around 9:00 am with no relief. She stated he also said everything around him is "foggy". He is wearing a Zio and he pushed the button and documented everything. She wanted Dr. Capellan to be advise and is asking if there is anything else that can be done. She stated he does not have any chest pain or shortness of breath. Marcie can be reached at [phone]. documented in this encounter Plan of Treatment Upcoming Encounters Date Type Department Care Team (Late st Contact Info) Description 10/27/2023 10:00 AM EDT Office Visit Family Practice [facility] [address] [place] [address] Facundo Mcgill, [address] [place] [address] 11/09/2023 11:00 AM EDT Office Visit Cardiology, [facility] [address] [place] [address] Terry Capellan MD [address] [place] [address] 12/26/2023 10:30 AM EDT Nurse Only Ancillary [facility] [address] [place] [address] [facility], Nurse Annual Wellness [facility] [address] [place] [address] 05/15/2024 8:00 AM EST Office Visit Family [facility] [address] [place] [address] Facundo Mcgill, [address] [place] [address] Health Maintenance Due Date Last Done Comments [...] and were consensually agreed upon. Care Teams Beef Grader Relationship Specialty Start Date End Date Facundo Mcgill DO [address] [place] [phone] PCP - General Family Medicine 11/07/17 documented as of this encounter
--- OUTSIDE RECORDS SUMMARY | 2023-08-07 06:09 | External Medical Summary | Summary of Care ---
Author Name Unknown Organization [facility] [address] [facility] [address] Phone [phone] Care Team Providers Care Link Trainer Teacher Name Role Phone Facundo Mcgill Primary Care Provider Encounter Details Date Type Department Care Team (Late st Contact Info) Description 07/20/2023 Telephone Cardiology, [facility] [address] [place] [address] Kathie Duran CRNP [address] [place] [id number] Allergies No known active allergiesdocumented as of this encounter (statuses as of 07/20/2023) Medications Medication Sig Dispensed Refills Start Date [...] as of this encounter (statuses as of 07/20/2023) Active Problems Problem Noted Date Diagnosed Date [...] as of this encounter (statuses as of 07/20/2023) Resolved Problems Problem Noted Date Diagnosed Date Resolved Date Weak urinary stream 05/18/2013 10/26/19 17 Renal calculus 11/14/2012 07/28/2018 TIA (transient ischemic attack) 05/28/2010 10/25/2016 Obesity, Class II, BMI 35-39 .9, isolated (see actual BMI) 05/28/2010 05/30/2012 documented as of this encounter (statuses as of 07/20/2023) Immunizations Name Administration Dates Next Due COVID-19 mRNA, LNP-s, No Pre serve, 2-Dose Series ([employer]) 08/06/2020,07/16/2020 DTP Vaccine 10/06/2013 Pneumococcal Conjugate Vacc, [...] EDT This patient is known to the undersigned and Dr. Capellan - are we able to schedule the patient with the providers who have evaluated this patient inpatient. * Telephone Encounter - Wade Edwards OSA - 07/20/2023 11:10 AM EDT Patient is scehduled with Dr. Pavon as a new patient on: 08/16/23 at 11 am Date: 08/16/2023 Status: Milind Time: 11:00 AM Length: 30 Visit Type: NEW CARDIOLOGY [[id number]] Reg Status: Verified Copay: $40.00 Provider: Ambrose Pavon DO And for the ZIO: Tuesday Appt at 1:00 AM (15 min) Both here at , thank you. * Telephone Encounter - Kathie Duran CRNP - 07/20/2023 10:56 AM EDT Patient admitted to [facility] on 07/19/2023. Anticipate Discharge within the next 24 to 48 hours. Scheduling: Please assist with [facility] follow-up within the next 6-8 weeks. Patient is considered new. Known to the undersigned and Dr. Capellan inpatient. If scheduling with [facility] please allow 60 minutes for this appointment and label appt [facility]. Will need a 14 day zio PRIOR [...] (Late st Contact Info) Description 08/01/2023 1:00 AM EDT Cardiac Studies Cardiac Studies, [facility] [address] [facility] [place] [address] 08/16/2023 11:00 AM EDT Office Visit Cardiology, [facility] [address] [facility] [place] [address] Ambrose Pavon DO [address] [place] [address] 10/27/2023 10:00 AM EDT Office Visit Family Practice [facility] [address] [facility] [place] [address] Facundo Mcgill DO [address] [place] [address] 12/26/2023 10:30 AM EDT Nurse Only Ancillary [facility] [address] [facility] [place] [address] [place], Nurse Annual Wellness [address] [place] [address] Scheduled Orders Name Type Priority Associated Diagnoses [...] and were consensually agreed upon. Care Teams Link Trainer Teacher Relationship Specialty Start Date End Date Facundo Mcgill DO [address] [place] [phone] PCP - General Family Medicine 11/07/17 documented as of this encounter
--- OUTSIDE RECORDS SUMMARY | 2023-08-07 06:09 | External Medical Summary | Summary of Care ---
Author Name Unknown Organization [facility] Address [address] [facility] [place] [address] Phone [phone] Care Team Providers Care Director Of Integrated Marketing Name Role Phone Madonna Mcgill DO Primary Care Provider Reason for Visit * Reason Comments NEW PATIENT * Evaluate & Treat - Unlimited Visits (Within 3 days (urgent)) - Pending Review Specialty Diagnoses / Procedures Referred By Contact Referred To Contact Cardiovascular Medicine / Cardiology Diagnoses Mobitz (type) I (Wenckebach's) atrioventricular block AV block, 1st degree Madonna Mcgill DO [address] [place] [address] Referral ID Status Reason Start Date Expiration Date Visits Requested Visits Authorized [id number] Pending Review Specialty Services Required 07/25/[phone] Encounter Details Date Type Department Care Team (Latest Contact Info) Description 08/02/2023 2:00 PM EDT Office Visit Cardiology, [facility] [address] [place] [address] Terry Capellan MD [address] [place] [address] Atrioventricular block, Mobitz type 1, Wenckebach*; HTN, goal below 130/80 Allergies No known active allergiesdocumented as of this encounter (statuses as of 08/02/2023) Medications Medication Sig Dispensed Refills Start Date [...] as of this encounter (statuses as of 08/02/2023) Active Problems Problem Noted Date Diagnosed Date [...] as of this encounter (statuses as of 08/02/2023) Resolved Problems Problem Noted Date Diagnosed Date Resolved Date Dyslipidemia 10/02/2021 07/25/2023 Weak urinary stream 05/18/2013 10/26/19 17 Renal calculus 11/14/2012 07/28/2018 TIA (transient ischemic attack) 05/28/2010 10/25/2016 Obesity, Class II, BMI 35-39 .9, isolated (see actual BMI) 05/28/2010 05/30/2012 documented as of this encounter (statuses as of 08/02/2023) Immunizations Name Administration Dates Next Due COVID-19 mRNA, LNP-s, No Pre serve, 2-Dose Series ([employer]) 08/06/2020,07/16/2020 DTP Vaccine 10/06/2013 Pneumococcal Conjugate Vacc, [...] Sign Reading Time Taken Comments Blood Pressure 154/80 08/02/2023 1:37 PM EDT Pulse 60 08/02/2023 1:37 PM EDT Temperature - - Respiratory Rate 18 08/02/2023 1:37 PM EDT Oxygen Saturation - - Inhaled Oxygen Concentration - - Weight 96.1 kg (211 lb 14.4 oz) 08/02/2023 1:37 PM EDT Height - - Body Mass Index 32.22 12/24/2022 10:55 AM EDT documented in this encounter Progress Notes * Terry Capellan MD - 08/02/2023 1:39 PM EDT Cardiology Consultation [facility] 08/02/2023 Reason for Consultation: 1st and Mobitz type 1 second-degree AV block Provider Requesting Consultation: PCP: MADONNA MCGILL [address] [place] [address] [phone] History of Present Illness: Freddy Neil is a 77 year old year old male referred for ongoing care with 1. 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 Hypertension 3. Hyperlipidemia Patient is referred after acute hospitalization on July 19, 2023. Patient developed sudden onset of symptoms while sitting quietly of spinning and dizziness in a pattern consistent with a for vertigo. EKGs however on ER presentation demonstrated intermittent second-degree AV block. Episodes did not correlate with symptoms. Symptoms resolved in hospital however arrhythmia remained present. No progression in conduction system disease on overnight monitoring patient ambulatory on discharge and presents today now noting no further significant dizzy spells lightheadedness or change in exercise capacity. ZIO Patch event monitor in place MRI of the brain without infarct small left orbital mass defined A Complete Review of Systems is as stated above or negative. Past Medical History: Patient Active Problem List Diagnosis Code HTN, goal below 130/80 I10 Eczema L30.9 Obesity, Class I, BMI 30.0-34.9 (see actual BMI) E66.9 Dyslipidemia, goal LDL below 100 E78.5 BPH without obstruction/lower urinary tract symptoms N40.0 Irritable colon K58.9 Hx of transient ischemic attack (TIA) Z86.73 History of kidney stones Z87.442 Prediabetes R73.03 Proteinuria R80.9 Family history of dementia Z81.8 Past Surgical History: Procedure Laterality Date COLONOSCOPY, DIAGNOSTIC (RECTUM) 03/15/2022 diverticulosis/COLONOSCOPY FLEXIBLE PROXIMAL DIAGNOSTIC performed by Katharine Torrez DO at ENDOSCOPY [facility] COLORECTAL CANCER SCREEN; NOT AT RISK 11/10/2010 quintero colonic diverticulosis repeat 10 years CYSTO/URETERO W/LITHOTRIPSY 01/13/2018 CYSTOURETHROSCOPY URETEROSCOPY WITH LITHOTRIPSY AND STENT INSERTION performed by Dariela Larsen MD at OR [facility] CYSTOURETERO W/LITHOTRIPSY Left 01/20/2018 CYSTOURETHROSCOPY URETEROSCOPY WITH LITHOTRIPSY performed by Dariela Larsen MD at [facility] HAND YAZIDISM MULTIPLE FI 04/04/1995 L 3rd finger repair Family History: Family History Problem Relation Age of Onset Lung Disorder Mother needs oxygen, age 90 Cancer Father throat, age 70 Heart Disorder Brother Heart Disorder Brother Diabetes Sister Social History: Social History Socioeconomic History Marital status: Spouse name: Ailyn Number of children: 3 Years of education: Not on file Highest education level: Not on file Occupational History Occupation: retired Employer: [employer] Tobacco Use Smoking status: Former Current packs/day: 0.00 Average packs/day: 0.5 packs/day for 22.0 years (11.0 ttl pk-yrs) Types: Cigarettes Start date: 04/04/1968 Quit date: 04/04/1990 Years since quittin.3 Smokeless tobacco: Former Types: Snuff Quit date: 04/04/1990 Tobacco comments: for a few years Vaping Use Vaping Use: Never used Substance and Sexual Activity Alcohol use: Yes Alcohol/week: 2.0 standard drinks of alcohol Types: 2 12 oz of beer per week Drug use: No Sexual activity: Not on file Other Topics Concern Not on file Social History Narrative Not on file Social Determinants of Health Financial Resource Strain: Not on file Food Insecurity: No Food Insecurity (12/23/2021) Hunger Vital Sign Worried About Running Out of Food in the Last Year: Never true Ran Out of Food in the Last Year: Never true Transportation Needs: Not on file Physical Activity: Not on file Stress: Not on file Social Connections: Not on file Intimate Partner Violence: Not on file Housing Stability: Not on file Allergies: Patient has no known allergies. Medications: Current Outpatient Medications Medication Sig Dispense Refill MULTIVITAMINS PO TABS None Entered OSTEO BI-FLEX JOINT SHIELD PO TABS None Entered aspirin 325 MG Tablet Take 1 Tablet by mouth in the morning. Lisinopril-hydroCHLOROthiazide 10-12.5 MG Oral Tablet Take 1 Tablet by mouth in the morning. 90 Tablet 3 Atorvastatin Calcium 40 MG Oral Tablet (Lipitor) Take 1 Tablet by mouth in the morning. 90 Tablet 3 Felodipine ER 5 MG Oral Tablet Extended Release 24 Hour (Plendil) Take 1 tablet by mouth once daily90 Tablet 3 Meclizine HCl 12.5 MG Oral Tablet (Antivert) Take 1 Tablet by mouth 3 times a day as needed. (Patient not taking: Reported on 08/02/2023) No current facility-administered medications for this visit. OBJECTIVE/PHYSICAL EXAMINATION: BP 154/80 (BP Site: Left Arm, BP Position: Sitting, BP Cuff Size: Large) | Pulse 60 | Resp 18 | Wt 96.1 kg (211 lb 14.4 oz) | BMI 32.22 kg/m | BSA 2.15 m General: Age-appropriate male in no acute distress Head: normocephalic, no masses, lesions, tenderness or abnormalities Eyes: conjunctiva are pink and non-injected, sclera clear Throat: clear Nares: without discharge Neck: supple, no adenopathy, normal jugular venous pulse, no hepatojugular reflux, no carotid bruits Chest: normal shape and normal respiratory effort Lungs: clear to auscultation and percussion Cardiac Exam: - regular rate & rhythm, no murmur, gallop or rub - normal S-1, normal S-2 Abdomen: abdomen soft, non-tender, no abnormal masses, no hepatosplenomegaly, no abdominal bruit, no femoral bruit Musculoskeletal: no gait disturbance, no joint inflammation, no deforming arthritis Extremities: no edema, no cyanosis, pulses intact 2+/4 Neuro: grossly normal exam Data: Echocardiogram July 19, 2023 Moderate left ventricular hypertrophy with sigmoid septum Normal wall motion, EF 60 to 65% with grade 1 diastolic dysfunction Mild aortic sclerosis without stenosis Mild mitral and tricuspid insufficiency Lipid Panel Results: Results for orders placed or performed in visit on 01/10/18 LIPID PANEL Result Value Ref Range HOURS FASTING 12 hours Triglycerides 97 <200 mg/dL Cholesterol 105 <200 mg/dL HDL Cholesterol 29 (L) >39 mg/dL Cholesterol-HDL Ratio 3.6 LDL Cholesterol 57 0 - 129 mg/dL Results for orders placed or performed in visit on 10/21/22 LIPID PANEL WITH DIRECT LDL IF TG IS HIGH Result Value Ref Range Triglycerides 141 <=174 mg/dL Cholesterol 107 <200 mg/dL HDL Cholesterol 28 (L) >39 mg/dL Non-HDL Cholesterol 79 <=159 mg/dL LDL Cholesterol 51 <=129 mg/dL IMPRESSION: 77 year old year old male Referred for management of chronic conduction system disease agrees with 1st and second-degree AV block (Mobitz type 1) Initially evaluated in the setting of acute vertiginous complaints. Did not appear to be in relationship to rhythm findings Discussed in detail with patient Current findings reflect persistent elevation in blood pressure RECOMMENDATIONS/PLAN: Complete ZIO patch Increase lisinopril to 20 mg per day Separate out hydrochlorothiazide to 12.5 mg daily Patient advised to call with any questions or concerns and to report to the ER with any and all emergencies. Disposition: Return after testing Terry Capellan MD Cardiology, [place] [phone] documented in this encounter Nursing Notes * Triny Flores CMA - 08/02/2023 1:34 PM EDT Examination Room: 13 Name: Freddy Neil Date of : (1945). Reason for Visit: New patient Interim Hospitalization([facility]): [facility] Problems/Concerns: Discuss BP Chest Pain/SOB: denies [facility] Discussed: Not applicable [facility] is a way you can talk to your provider online through e-mail. Would you like to sign up? I can activate it for you? DECLINES Patient was instructed to not get up on the exam table until directed and assisted by their provider; patient is to remain seated in the chair/ wheelchair/ exam table for fall prevention and safety reasons. Patient is aware to have assistance to step down off exam table with personnel. Patient voiced full comprehension of instructions. documented in this encounter Plan of Treatment Upcoming Encounters Date Type Department Care Team (Late st Contact Info) Description 10/27/2023 10:00 AM EDT Office Visit [facility] [address] [place] [address] Madonna Mcgill, [address] [place] [address] 11/09/2023 11:00 AM EDT Office Visit Cardiology, [facility] [address] [place] [address] Terry Capellan MD [address] [place] [address] 12/26/2023 10:30 AM EDT Nurse Only Ancillary [facility] [place] [address] [facility], Nurse Annual Wellness [facility] [address] [place] [address] 05/15/2024 8:00 AM EST Office Visit [facility] [address] [place] [address] Madonna Mcgill DO [address] [place] [address] Health Maintenance Due Date Last Done Comments [...] Wenckebach- Primary Other second degree atrioventricular block HTN, goal below 130/80 Unspecified essential hypertension [...] and were consensually agreed upon. Care Teams Director Of Integrated Marketing Relationship Specialty Start Date End Date Madonna Mcgill DO [address] [facility] [place] [address] PCP - General Family Medicine 11/07/17 documented as of this encounter"
--- OUTSIDE RECORDS SUMMARY | 2023-08-07 06:09 | External Medical Summary | Summary of Care ---
Author Name Unknown Organization [facility] Address [address] [facility] [place] [address] Phone [phone] Care Team Providers Care Dental Laboratory Assistant Name Role Phone Facundo Mcgill Primary Care Provider Reason for Visit * Reason Onset Date Comments Hospital Follow-Up 07/21/2023 YAJAIRA Encounter Details Date Type Department Care Team (Late st Contact Info) Description 07/21/2023 Telephone [place] [address] [address] [facility] [place] [id number] Whit Brooks RN Hospital Follow-Up (YAJAIRA) Allergies No known active allergiesdocumented as of this encounter (statuses as of 07/22/2023) Medications Medication Sig Dispensed Refills Start Date [...] as of this encounter (statuses as of 07/22/2023) Active Problems Problem Noted Date Diagnosed Date [...] as of this encounter (statuses as of 07/22/2023) Resolved Problems Problem Noted Date Diagnosed Date Resolved Date Weak urinary stream 05/18/2013 10/26/19 17 Renal calculus 11/14/2012 07/28/2018 TIA (transient ischemic attack) 05/28/2010 10/25/2016 Obesity, Class II, BMI 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 Left message for patient to return call [phone] or . Can forward to me if patient returns call. Whit Brooks RN Transitions of Care Note Reason for Referral:Recent Admission Phone visit for follow up: YAJAIRA #2 Admitted to: [facility], Date: 07/19/2023 Discharged to: Home, Date: 07/20/2023 Diagnosis driving hospitalization: Vertigo Source/Contact: Patient SUBJECTIVE Consent: Verbal consent for review of hospital discharge: Yes REVIEW OF SYSTEMS Patient/Other Reports: Current patient/caregiver problems or concerns: Patient states dizziness resolved yesterday on its own. Denies dizziness today. He has not needed to take Meclizine. Has been checking BP and documenting to take to appt Tuesday. 146/84 yesterday afternoon. Has noticed a little sore throat today, no other symptoms. Advised to notify if worsening, or if fever /chills. CV: Denies problems Pulmonary: Denies problems Chills/Sweats/Fever:Denies chills/sweats Denies fever Appetite:Denies problems such as nausea, vomiting, burning, decreased appetite Current diet: Heart Healthy Bowel: denies problems Bladder: denies problems Wound (If applicable): N/A Pain:Denies Sleep:Denies problems FUNCTIONAL STATUS: ADL'S: Needs Assistance With:N/A as pt is independent IADL'S: Needs Assistance With:N/A as pt is independent Cognitive and Mental Health: denies problems, alert and oriented x 3, and able to communicate, understand instructions, process information. MEDICATION RECONCILIATION Medications: Discharge med list reviewed with patient or caregiver New medication: Meclizine ASSESSMENT Medication Risk Assessment: No risks identified Did patient fail outpatient treatment? No Discharge instructions available for review? Yes PLAN Symptom Monitoring Interventions:Member/caregiver education - signs and symptoms to contact PrimaryCare (DO NOT DELETE-Three davidson symptoms patient is to report to PCP) 1. Chest pain/SOB 2. Fever/chills 3. Recurring dizziness, worsening sore throat Otolaryngology NurseEthnic Studies Professor of Care interventions/Action Plan: 5 - 7 day follow-up with PCP in place - Date: PCP appointment 07/25/2023 Educated on role of YAJAIRA completed with patient/caregiver. Educated patient/caregiver on patient right to have input on YAJAIRA plan of care. Verification of Home Health/DME if indicated: NA Identified Care Gaps: No Care Gaps closed this call: Appointment made or confirmed and Transition of Care follow-up communication Re-evaluation of Plan of Care and progress towards goals achievement: Patient education this visit: Verbal, confirmed PCP appointment, discussed reasons to call sooner as above, notified of late hours and weekend provider visits available if needed. Plan to instructed to call Primary Care Provider with change in symptoms or as needed before next follow-up, discharge needs met, verbalizes understanding and agrees with plan. Whit Brooks RN documented in this encounter Plan of Treatment Upcoming Encounters Date Type Department Care Team (Late st Contact Info) Description 07/25/2023 1:40 PM EDT Office Visit [facility] [address] [place] [address] Facundo Mcgill, DO [address] [place] [address] 08/01/2023 1:00 PM EDT Cardiac Studies Cardiac Studies, Health system [address] [place] [address] 10/27/2023 10:00 AM EDT Office Visit [facility] [address] [place] [address] Facundo Mcgill, DO [address] [place] [address] 12/26/2023 10:30 AM EDT Nurse Only Ancillary [facility] system [address] [place] [address] [employer], Nurse Annual Wellness [place] [address] [place] [address] Health Maintenance Due Date Last Done Comments COVID-19 Vaccine ( - season) 2022 08/06/2020, 07/16/2020 DTaP,Tdap,and Td [...] and were consensually agreed upon. Care Teams Dental Laboratory Assistant Relationship Specialty Start Date End Date Facundo Mcgill DO [address] [place] [id number] PCP - General Family Medicine 11/07/17 documented as of this encounter
--- OUTSIDE RECORDS SUMMARY | 2023-08-07 06:09 | External Medical Summary | Summary of Care ---
Author Name Unknown Organization [facility] Address [address] [facility] [place] [address] Phone [phone] Care Team Providers Care Professional Benefits Sales Consultant Name Role Phone Facundo Mcgill Primary Care Provider Encounter Details Date Type Department Care Team (Late st Contact Info) Description 07/20/2023 Telephone Cardiology, [facility] [address] [place] [address] Kathie Duran CRNP [address] [place] [id number] Allergies No known active allergiesdocumented as of [...] mRNA, LNP-s, No Pre serve, 2-Dose Series ([employer]) 08/06/2020,07/16/2020 DTP Vaccine 10/06/2013 Pneumococcal Conjugate Vacc, [...] AM Length: 30 Visit Type: NEW CARDIOLOGY [[id number]] Reg Status: Verified Copay: $40.00 Provider: Ambrose Pavon DO And for the ZIO: Tuesday Appt at 1:00 AM (15 min) Both here at , thank you. * Telephone Encounter - Kathie Duran CRNP - 07/20/2023 10:56 AM EDT Patient admitted to [facility] on 07/19/2023. Anticipate Discharge within the next 24 to 48 hours. Scheduling: Please assist with [facility] follow-up within the next 6-8 weeks. Patient is considered new. Known to the undersigned and Dr. Capellan inpatient. If scheduling with [facility] please allow 60 minutes for this appointment and label appt [facility]. Will need a 14 day zio PRIOR [...] 1:00 AM EDT Cardiac Studies Cardiac Studies, [facility] [address] [facility] [place] [address] 08/16/2023 11:00 AM EDT Office Visit Cardiology, [facility] [address] [facility] [place] [address] Ambrose Pavon DO [address] [place] [address] 10/27/2023 10:00 AM EDT Office Visit Family Practice [facility] [address] [facility] [place] [address] Facundo Mcgill DO [address] [place] [address] 12/26/2023 10:30 AM EDT Nurse Only Ancillary [facility] [address] [facility] [place] [address] Aaron, Nurse Annual Wellness [address] [place] [address] Scheduled Orders Name Type Priority Associated Diagnoses [...] and were consensually agreed upon. Care Teams Professional Benefits Sales Consultant Relationship Specialty Start Date End Date Facundo Mcgill DO [address] [place] [phone] PCP - General Family Medicine 11/07/17 documented as of this encounter
--- OUTSIDE RECORDS SUMMARY | 2023-08-07 06:09 | External Medical Summary | Summary of Care ---
Author Name Unknown Organization [facility] Address [address] [facility] [place] [address] Phone [phone] Care Team Providers Care Air Traffic Control Operator Name Role Phone Facundo Mcgill DO Primary Care Provider Reason for Visit * Reason Onset Date Comments Advice 08/03/2023 Encounter Details Date Type Department Care Team (Late st Contact Info) Description 08/03/2023 Telephone Cardiology, [facility] [address] [place] [address] Terry Capellan MD [address] [employer] [place] [address] Advice Allergies No known active allergiesdocumented as of this encounter (statuses as of 08/03/2023) Medications Medication Sig Dispensed Refills Start Date [...] as of this encounter (statuses as of 08/03/2023) Active Problems Problem Noted Date Diagnosed Date [...] as of this encounter (statuses as of 08/03/2023) Resolved Problems Problem Noted Date Diagnosed Date Resolved Date Dyslipidemia 10/02/2021 07/25/2023 Weak urinary stream 05/18/2013 10/26/19 17 Renal calculus 11/14/2012 07/28/2018 TIA (transient ischemic attack) 05/28/2010 10/25/2016 Obesity, Class II, BMI 35-39 .9, isolated (see actual BMI) 05/28/2010 05/30/2012 documented as of this encounter (statuses as of 08/03/2023) Immunizations Name Administration Dates Next Due COVID-19 mRNA, LNP-s, No Pre serve, 2-Dose Series ([employer]) 08/06/2020,07/16/2020 DTP Vaccine 10/06/2013 Pneumococcal Conjugate Vacc, [...] encounter Miscellaneous Notes * Telephone Encounter - Terry Capellan MD [...] of breath. Marcie can be reached at [phone]. documented in this encounter Plan of Treatment Upcoming Encounters Date Type Department Care Team (Late st Contact Info) Description 10/27/2023 10:00 AM EDT Office Visit [facility] [address] [place] [address] Facundo Mcgill, [address] [place] [address] 11/09/2023 11:00 AM EDT Office Visit Cardiology, [facility] [address] [place] [address] Terry Capellan MD [address] [place] [address] 12/26/2023 10:30 AM EDT Nurse Only Ancillary [facility] [address] [place] [address] [facility], Nurse Annual Wellness [facility] [address] [place] [address] 05/15/2024 8:00 AM EST Office Visit [facility] [address] [place] [address] Facundo Mcgill DO [address] [place] [address] Health Maintenance Due Date Last Done Comments [...] and were consensually agreed upon. Care Teams Air Traffic Control Operator Relationship Specialty Start Date End Date Facundo Mcgill DO [address] [place] [address] PCP - General Family Medicine 11/07/17 documented as of this encounter
--- NOTE | 2023-08-07 08:38 | Cardiology Progress Note ---
Date of Service August 07, 2023 Assessment & Plan (1) Dizziness: (2) Vertigo: (3) 1st degree AV block: (4) 2nd degree atrioventricular block: (5) Hypertension: Plan Assessment: 77 year old male with recent vertigo symptoms and diagnosed 1st degree AV block with intermittent Second degree Mobitz type I that was admitted for dizziness, and vertigo requesting cardiology input. Plan: 1. dizziness 2. Vertigo Multifactorial. patient has had ongoing intermittent dizziness that resonates with vertigo type description. Patient is bradycardic and in an intermittent AVB as discussed above; however, is often asymptomatic when assessing patient in conjunction with viewing the monitor. patient also has a positive covid diagnosis, while asymptomatic at this time, had acute URI symptoms 1.5 weeks ago, which may also be contributing to his episodes. Recent Echo 07/19/23 demonstrates normal LVEF, normal wall motion. The basal septum of note is thickened and angulated consistent with sigmoid septum. Mild annular calcification without stenosis, mild MR and mild TR. No acute findings to explain his symptoms. -[employer] monitor has been removed. Spoke with our office yesterday and was able to get an overnight shipping label. Son brought box in with label, monitor has been overnighted to the company. -Review of telemetry has demonstrates a pause of 3.3 seconds overnight. discussed findings with patient/family and Dr. Parra. -Plan is to continue current medication therapies, avoid any AV flynn blocking agents. Continue to monitor on telemetry and will make patient NPO at midnight for possible PPM placement on Tuesday with Dr. York. 3. 1st degree AV Block 4. 2nd Degree Mobitz type I AV block, intermittent -patient resting comfortably in bed with no symptoms. Telemetry available at bedside demonstrating Active Mobitz type I without symptoms. Further review of telemetry shows no sinus pause of other high grade heart block. -Avoid AV flynn blocking agents -Discussed patient's symptoms at this time with relationship to the progression of conduction system disease as well as explanation of his symptoms. -Sinus pause overnight 3.3 seconds at 0140 on 08/06/23. No pauses overnight last night. -Continue to monitor on telemetry. NPO after midnight tonight for possible PPM Tuesday 5. Hypertension -Currently above target, but continues to improve. -Continue Lisinopril 20mg Daily, Felodipine 5 mg Daily. -may consider patient's home dose of HCTZ if numbers remain above target. Case has been discussed with Dr. Parra. Further recommendations regarding plan of care as per his assessment. I spent a total of 30 minutes on the date of service in preparation, delivery, documentation of the care provided to the patient excluding any time spent in the performance of separately billed services. ION S[facility] Admission and Anticipated Discharge Date Admission Date: August 05, 2023 Supervising Physician Co-Signing Physician Notes I have reviewed the advance practitioner's documentation, and I agree with, and take responsibility for the plan of care. I have personally performed a history and physical examination on the patient. 77-year-old male present to the emergency department with dizziness, lightheadedness, and possible near syncope. Describes episodes recurring on a nightly basis after sleeping several hours, then awakening to use the restroom. Notes feeling "hazy". Denies any loss of consciousness. At times describes symptoms consistent with vertigo "room spinning". Recently evaluated in the cardiology office. Currently wearing a ZIO monitor. Overnight patient did have ~3 second sinus pause. But no high degree AV block. Remains in a Mobitz type 1. EP evaluation for Tuesday for possible PPM. Keep NPO after midnight on Tuesday. I spent a total of 35 minutes on the date of service in preparation, delivery, and documentation of the care provided to this patient, excluding any time spent in the performance of separately billed services. Subjective Patient seen and examined in follow up today. Feeling well overall. Denies any chest pain, pressure, palpitations, no dizziness or near syncope. Labs, vitals, diagnostics, telemetry and documentation reviewed. Telemetry reviewed showing SB with 1st AVB, with frequent Second degree Mobitz I. Rates in the 30's overnight, but no pauses last night. Rates currently 50-60 Review of Systems Review of Systems: All systems reviewed & are unremarkable except as noted in HPI & below Physical Exam Constitutional: well developed and well nourished; no acute distress and not ill appearing Neck: normal visual inspection and trachea midline Respiratory: normal respiratory effort, lungs clear to auscultation Cardiovascular: Rate/Rhythm: regular rhythm and + bradycardic Heart Sounds: normal S1 and normal S2; no murmur Vessels: no JVD Extremities: no edema Skin: no rashes, warm and dry Psychiatric: A+Ox3, euthymic affect Results & Data Vital Signs (Past 12 Hours) Vital Signs Temp Pulse Pulse Resp BP Pulse Ox O2 Del Method 08/07/23 08:07 36.5 C 56 L 19 134/76 95 Room Air 08/07/23 02:37 36.6 C 50 L 18 143/74 H 96 Room Air 08/06/23 23:00 36.8 C 48 L 19 124/71 96 Room Air 08/06/23 22:00 41 L Laboratory Results Intake and Output 08/07/23 08/07/23 08/07/23 06:59 14:59 22:59 Other: Weight 94 kg Weight Measurement Method Built in [facility] (5) Hypertension Hypertension type: primary hypertension Qualified Code(s): I10 - Essential (primary) hypertension
--- NOTE | 2023-08-07 16:02 | Hospitalist Progress Note ---
Date of Service August 07, 2023 Assessment & Plan (1) Dizziness: Plan: Multifactorial: Vertigo description Possible symptomatic bradycardia, history of conduction system disease 08/04 Evaluated by cardiology service today Plan to review Zio patch monitor and based on that, decision will be made for possible pacemaker placement Continue to monitor closely in telemetry unit 08/05 Patient had 2 episodes of sinus pause, 3 seconds overnight Asymptomatic at that point as per patient Plan for possible pacemaker evaluation on Sunday 08/06 for PM placement tomorrow hypertension -Continue lisinopril valvular heart disease (mild MR/TR) hx TIA, on aspirin and statin Rx prediabetes, hemoglobin A1c of 6.05 April 2023 past tobacco abuse DVT prophylaxis. SCDs for now re: possible procedure Full code Disposition Pending Lives at home Admission and Anticipated Discharge Date Admission Date: August 05, 2023 Subjective ff up for dizziness, bradycardia, etc seen resting in bed, comfortable states he feels ok overall no chest pain, dyspnea, palpitations, dizziness no cough, nausea no other symptoms Review of Systems Review of Systems: all noted and negative except for above Physical Exam 2 Physical Exam: General- oriented x 3, not in distress, speaks in sentences with no effort or accessory muscle use Eyes- anicteric Neck- no JVD Lungs- clear breath sounds bilaterally, no rales/wheezes Heart- normal rate, regular rhythm; no murmurs Abdomen- normal bowel sounds, nondistended, soft, nontender Extremities- no pretibial edema, no calf tenderness Neuro- alert, oriented x 3; no gross focal neurologic deficits Skin- warm & dry Results & Data Results & Data Vital Signs (Past 12 Hours) Vital Signs Temp Pulse Resp BP Pulse Ox O2 Del Method 08/07/23 11:54 36.3 C L 68 18 147/83 H 95 Room Air 08/07/23 08:07 36.5 C 56 L 19 134/76 95 Room Air all noted and reviewed including below
--- NOTE | 2023-08-07 21:38 | Electrocardiogram Report ---
Test Reason : Blood Pressure : / mmHG Vent. Rate : 046 BPM Atrial Rate : 046 BPM P-R Int : 000 ms QRS Dur : 076 ms QT Int : 428 ms P-R-T Axes : 000 044 049 degrees QTc Int : 374 ms Sinus bradycardia with sinus arrhythmia and first degree AV block Abnormal ECG When compared with ECG of 20-JUL-2023 05:25, No significant change Confirmed by Zafar Arevalo ([id number]) on 08/07/2023 9:38:15 PM Referred By: REFERRED SELF Confirmed By:Zafar Arevalo
--- NOTE | 2023-08-07 21:42 | Electrocardiogram Report ---
Test Reason : Blood Pressure : / mmHG Vent. Rate : 045 BPM Atrial Rate : 045 BPM P-R Int : 520 ms QRS Dur : 076 ms QT Int : 468 ms P-R-T Axes : 029 049 056 degrees QTc Int : 404 ms Sinus bradycardia with 1st degree A-V block with Premature atrial complexes in a pattern of bigeminy Otherwise normal ECG When compared with ECG of 04-AUG-2023 23:31, (unconfirmed) No significant change Confirmed by Zafar Arevalo ([id number]) on 08/07/2023 9:41:54 PM Referred By: REFERRED SELF Confirmed By:Zafar Arevalo
[2023-08-08] MEDS ORDERED: WATER, STERILE FOR INJ 10 ML VIAL ONE (11:42)
[2023-08-08] MEDS ORDERED: BUPIVACAINE 0.25% PF 30 ML VIAL ONE (11:42)
--- NOTE | 2023-08-08 11:49 | Pre Anesthesia Assessment ---
Date of Service August 08, 2023 Pre Sedation Assessment Vital Signs Temp Pulse Pulse Resp BP BP Pulse Ox 08/08/23 10:42 36.4 C L 47 L 16 160/80 H 96 08/08/23 07:52 58 L 08/08/23 07:23 36.4 C L 46 L 17 151/83 H 98 08/08/23 03:00 36.4 C L 41 L 14 142/76 H 96 08/07/23 22:54 36.7 C 52 L 18 135/78 95 08/07/23 22:00 48 L 08/07/23 19:38 36.6 C 50 L 16 137/76 96 08/07/23 17:08 36.7 C 58 L 18 160/83 H 126/74 94 08/07/23 15:00 59 L 08/07/23 11:54 36.3 C L 68 18 147/83 H 95 O2 Del Method 08/08/23 10:42 Room Air 08/08/23 07:52 08/08/23 07:23 Room Air 08/08/23 03:00 Room Air 08/07/23 22:54 Room Air 08/07/23 22:00 08/07/23 19:38 Room Air 08/07/23 17:08 Room Air 08/07/23 15:00 08/07/23 11:54 Room Air Cardiovascular + bradycardic Respiratory normal respiratory effort, lungs clear to auscultation Pre-Sedation Airway Assessment Smoking Status: Former smoker Hx Sleep Apnea: No Hx Difficult Intubation: No Short, Thick Neck: No Thyromental Distance: < 3.5 Finger Breadths Oral Cavity: + Dental Abnormalities Mallampati Class: II ASA: ASA3 NPO Status Date of Last Intake of Fluids: 08/07/23 Date of Last Intake of Solid Food: 08/07/23 Procedure Planning Contraindications for Sedation: none Current Medications Reviewed: Yes Notes The planned sedation has been discussed with the patient. Informed Consent was obtained. I have identified the patient, determined the appropriateness of sedation and have assessed the patient immediately prior to the procedure. All medicine(s) and interventions are by my order.
--- NOTE | 2023-08-08 11:49 | History & Physical Bridge Note ---
Date of Service August 08, 2023 History & Physical Bridge Note I have examined the patient, reviewed the History & Physical and in the interval since the performance of the History & Physical I have noted the following changes of clinical significance: pt with syncope an irreversible sinus bradycardia and sinus pauses; recommend a dual chamber pacemaker prior to hospital discharge; discussed the procedure and potential risks and consents signed.
[2023-08-08] MEDS: ceFAZolin 330 MG/ML 1 GM VIAL ONE (12:45)
[2023-08-08] MEDS: VANCOMYCIN HCL 1000MG/20ML VIAL ONE (12:52)
[2023-08-08] MEDS: BUPIVACAINE 0.25% PF 30 ML VIAL ONE (12:53)
[2023-08-08] MEDS: fentaNYL citrate PF 100 MCG/2 ML VIAL ONE (13:16)
[2023-08-08] MEDS: MIDAZOLAM HCL 5 MG/ML 1 ML VIAL ONE (13:16)
--- NOTE | 2023-08-08 13:25 | Post Anesthesia Assessment ---
Date of Service August 08, 2023 Post Sedation Assessment Vital Signs Temp Pulse Pulse Resp BP BP Pulse Ox 08/08/23 11:54 37.0 C 56 L 18 146/77 H 95 08/08/23 10:42 36.4 C L 47 L 16 160/80 H 96 08/08/23 07:52 58 L 08/08/23 07:23 36.4 C L 46 L 17 151/83 H 98 08/08/23 03:00 36.4 C L 41 L 14 142/76 H 96 08/07/23 22:54 36.7 C 52 L 18 135/78 95 08/07/23 22:00 48 L 08/07/23 19:38 36.6 C 50 L 16 137/76 96 08/07/23 17:08 36.7 C 58 L 18 160/83 H 126/74 94 08/07/23 15:00 59 L O2 Del Method 08/08/23 11:54 Room Air 08/08/23 10:42 Room Air 08/08/23 07:52 08/08/23 07:23 Room Air 08/08/23 03:00 Room Air 08/07/23 22:54 Room Air 08/07/23 22:00 08/07/23 19:38 Room Air 08/07/23 17:08 Room Air 08/07/23 15:00 Recovery Score Activity: Moves 4 extremities Respiration: Deep Breath/Cough Circulation: +/-20% PreAnes Value Consciousness: Fully Awake Oxygen Saturation: > 92% On Room Air Discharge Sedation Level of Care: Fast Track Phase II Post Sedation Plan On clinical assessment, the patient appears to have tolerated the sedation without complications. Patient is recovering as anticipated. Patient will continue to be monitored by nursing and may be discharged when sedation discharge criteria are met per below protocol. Upon Completions of procedure up to 15 minutes continue every 5 minute vital signs and the P.A.R. score; then discharge to a Phase I or Fast Track to Phase II per the following guidelines: * Discharge Patient to appropriate Phase II area if PAR is 8 or greater or return to pre- procedure baseline. The post - procedure orders will be as directed. * If PAR score is less than 8 or not return to pre-procedure baseline then patient will follow Phase I monitoring till PAR is reached for Phase II. The Phase I may be done in procedure room or may call to secure a Phase I area. * If naloxone or flumazenil are used for reversal, hold in Phase I for continued monitoring from when last reversal dose was given for a minimum of 60 minutes or longer pending the nurse and/or physician discretion of patient condition before discharge to Phase II. Please call the Sedation Physician to re-evaluate and complete post-note for discharge to Phase II area. Do NOT discharge from procedure sedation or Phase 1 until post- sedation evaluation note is complete by procedure /sedation MD Sedation Discharge Instructions to be given to the patient at discharge to home.
--- NOTE | 2023-08-08 13:29 | Cardiology Progress Note ---
Date of Service August 08, 2023 Assessment & Plan (1) Pre-syncope: (2) 2nd degree atrioventricular block: (3) Dizziness: Plan Patient referred and underwent dual-chamber pacemaker today. Tolerated procedure well May be discharged home with close clinical follow-up outpatient Post pacemaker instructions Continue current medications Admission and Anticipated Discharge Date Admission Date: August 05, 2023 Subjective Patient seen and personally examined. Both pre and post pacemaker no problems overnight. Still with Mobitz type I second-degree AV block no pauses Overnight No associated dizziness or lightheadedness this morning No chest pains or cough Tolerated pacemaker procedure well Review of Systems Review of Systems: All systems reviewed & are unremarkable except as noted in Subjective Physical Exam Eyes: PERRL, conjunctivae normal, anicteric sclerae ENMT: external ear and nose normal, oropharynx normal Neck: trachea midline, no thyromegaly Respiratory: normal respiratory effort, lungs clear to auscultation Cardiovascular: Rate/Rhythm: regular rate Heart Sounds: normal S1 and normal S2 Vessels: no JVD Extremities: no edema Gastrointestinal (Abdomen): normal bowel sounds, soft, nontender, no hepatosplenomegaly Musculoskeletal: no cyanosis or clubbing, extremities motor strength 5/5 Skin: no rashes, warm and dry Results & Data Vital Signs (Past 12 Hours) Vital Signs Temp Pulse Pulse Resp BP BP Pulse Ox 08/08/23 11:54 37.0 C 56 L 18 146/77 H 95 08/08/23 10:42 36.4 C L 47 L 16 160/80 H 96 08/08/23 07:52 58 L 08/08/23 07:23 36.4 C L 46 L 17 151/83 H 98 08/08/23 03:00 36.4 C L 41 L 14 142/76 H 96 O2 Del Method 08/08/23 11:54 Room Air 08/08/23 10:42 Room Air 08/08/23 07:52 08/08/23 07:23 Room Air 08/08/23 03:00 Room Air Diagnostic Findings Post pacemaker chest x-ray: No infiltrate or pneumothorax well-positioned pacemaker and lead
--- NOTE | 2023-08-08 15:46 | XRay Report ---
XR chest 1V portable CLINICAL HISTORY: s/p ppm ensure no PTX COMPARISON STUDY: Chest radiograph August 04, 2023. FINDINGS: There is no pneumothorax placement of a dual-lead left subclavian pacer. Low lung volumes a re unchanged. There is no evidence for pulmonary edema or pneumonia. Cardiomegaly is unchanged. Media stinal contours are stable. Lead tips project over the right atrial appendage and right ventricle. IMPRESSION: No pneumothorax status post placement of a dual-lead left subclavian pacemaker. ACT 112: Negative or not required by law. Electronically signed by: Egdardo Mao M.D. 08/08/2023 3:44 PM
--- NOTE | 2023-08-08 16:43 | Discharge Summary ---
Discharge Summary Date of Service August 08, 2023 Notes For Next Care Provider Medication Changes From Visit None Admission HPI Per Admitting Provider History obtained from patient, family, and records. Medical history significant for hypertension, first-degree/second-degree AV block (Mobitz type I), valvular heart disease (mild MR/TR), TIA, prediabetes, urolithiasis, BPH, past tobacco abuse. Recent confinement 3 weeks ago for dizziness attributed to vertigo. 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 Intermittent Wenckebach during confinement. No significant pauses during confinement as per documentation. Outpatient Zio patch recommended by cardiology. Patient seen at [facility] cardiology office on follow-up visit a few days ago. Home lisinopril dose increased to 20 mg daily given elevated BP during visit. Patient has had 2 episodes of spinning dizziness not related to motion following office visit. Some relief with meclizine Rx. Patient denies chest pain, SOB symptoms. Patient denies headache symptoms. Heart rate as low as 30 at times as per daughter. Patient brought to ER by family for further evaluation. 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 Admission Exam Per Admitting Provider GENERAL: Comfortable, obese, pleasant, no respiratory distress SKIN: Normal color, warm HEENT: [place] palpebral conjunctivae, no ptosis, dry buccal mucosa NECK : Supple, short neck, no tenderness CHEST : CTA, no tenderness HEART : Bradycardic, no obvious murmurs ABDOMEN: Some distention, nontender EXTREMITIES : No LE swelling/tenderness, no other conspicuous deformities noted NEUROLOGIC : Coherent, no facial asymmetry, no other gross focality Principal Dx & Hospital Course #1 = Principal Diagnosis (1) Dizziness: Presyncope 2nd Degree AV Block s/sp Dual Chamber Pacemaker Placement Evaluated by cardiology service During admission, Patient had 2 episodes of sinus pause, 3 seconds overnight s/p Pacemaker placement by Dr. Stephens on 08/08/23 ff up at [facility] in 1 week for pacemaker check Hypertension -Continue lisinopril Valvular heart disease (mild MR/TR) hx TIA, on aspirin and statin Rx prediabetes, hemoglobin A1c of 6.05 April 2023 past tobacco abuse Disposition d/c home follow up with PCP and [employer] in 1 week Discharge Exam General- oriented x 3, not in distress, speaks in sentences with no effort or accessory muscle use Eyes- anicteric Neck- no JVD Lungs- clear breath sounds bilaterally, no rales/wheezes Heart- normal rate, regular rhythm; no murmurs Pacemaker site: dressing in place, no surrounding hematoma, no bleeding/discharge Abdomen- normal bowel sounds, nondistended, soft, nontender Extremities- no pretibial edema, no calf tenderness Neuro- alert, oriented x 3; no gross focal neurologic deficits Skin- warm & dry Updated Medication List Medication Instructions Recorded Confirmed Type aspirin 325 mg tablet 325 mg PO DAILY 01/04/18 08/05/23 History atorvastatin 40 mg tablet 40 mg PO HS 01/04/18 08/05/23 History felodipine 5 mg tablet,extended 5 mg PO DAILY 01/04/18 08/05/23 History release 24 hr glucosamine-chondroitin 250 mg-200 2 tabs PO DAILY 01/04/18 08/05/23 History mg tablet (Osteo Bi-Flex) multivitamin 1 tab PO DAILY 01/04/18 08/05/23 History meclizine 12.5 mg tablet 12.5 mg PO TID PRN dizziness #5 07/20/23 08/05/23 Rx tabs hydrochlorothiazide 12.5 mg capsule 12.5 mg PO QAM 08/05/23 08/05/23 History lisinopril 10 mg tablet 20 mg PO QAM 08/05/23 08/05/23 History Hospital Stay Data Consultations 08/05/23 01:05 ED Decision to Admit Stat 08/05/23 02:50 Consult Cardiology Routine Procedures Performed Operation Date: 08/08/23 12:00 Actual Procedures s Venogram, Unilateral - Gely York DO p Pacer with A/V Leads (Dual) - Gely York DO s Bundle of his Recording - Gely York DO Diagnostic Imagining Performed Laboratory Results WBC 7.23 K/ul (4.8-10.8) 08/06/23 06:31 RBC 4.54 M/uL (4.70-6.10) L 08/06/23 06:31 Hgb 14.5 g/dl (14.0-18.0) 08/06/23 06:31 Hct 42.8 % (42.0-52.0) 08/06/23 06:31 MCV 94.3 fL (80.0-100.0) 08/06/23 06:31 MCH 31.9 pg (25.0-34.0) 08/06/23 06:31 MCHC 33.9 g/dL (32.0-36.0) 08/06/23 06:31 RDW Std Deviation 45.2 fL (36.4-46.3) 08/06/23 06:31 RDW Coeff of Roney 13.2 % (11.5-14.5) 08/06/23 06:31 Plt Count 165 K/uL (130-400) 08/06/23 06:31 MPV 10.3 fL (9.4-12.4) 08/06/23 06:31 Immature Gran % (Auto) 0.3 % 08/06/23 06:31 Neut % (Auto) 69.7 % 08/06/23 06:31 Lymph % (Auto) 20.2 % 08/06/23 06:31 Mellette % (Auto) 5.9 % 08/06/23 06:31 Eos % (Auto) 3.5 % 08/06/23 06:31 Baso % (Auto) 0.4 % 08/06/23 06:31 Neut # (Auto) 5.04 K/uL (1.40-6.50) 08/06/23 06:31 Lymph # (Auto) 1.46 K/uL (1.20-3.40) 08/06/23 06:31 Mellette # (Auto) 0.43 K/uL (0.11-0.59) 08/06/23 06:31 Eos # (Auto) 0.25 K/uL (0.00-0.50) 08/06/23 06:31 Baso # (Auto) 0.03 K/uL (0.00-0.20) 08/06/23 06:31 Immature Gran # (Auto) 0.02 K/uL (0.01-0.20) 08/06/23 06:31 PT 10.9 Seconds (9.0-12.0) 08/05/23 00:06 INR 1.0 (0.9-1.1) 08/05/23 00:06 APTT 26 Seconds (21-31) 08/05/23 00:06 PTT Ratio 1.0 08/05/23 00:06 Sodium 139 mmol/L (136-145) 08/06/23 06:31 Potassium 4.3 mmol/L (3.5-5.1) 08/06/23 06:31 Chloride 106 mmol/L (98-107) 08/06/23 06:31 Carbon Dioxide 27 mmol/L (21-32) 08/06/23 06:31 Anion Gap 6 (3-11) 08/06/23 06:31 BUN 18 mg/dl (6-23) 08/06/23 06:31 Creatinine 1.10 mg/dl (0.6-1.4) 08/06/23 06:31 Est Cr Clr Drug Dosing 62.7 ml/min 08/06/23 06:31 Est GFR ( Amer) 74.7 ml/min 08/06/23 06:31 Est GFR (Non-Af Amer) 64.4 ml/min 08/06/23 06:31 BUN/Creatinine Ratio 16.4 (10-20) 08/06/23 06:31 Glucose 115 mg/dl (70-99(Fasting)) H 08/06/23 06:31 Calcium 8.8 mg/dl (8.6-10.3) 08/06/23 06:31 Magnesium 1.8 mg/dl (1.7-2.4) 08/06/23 06:31 Total Bilirubin 0.6 mg/dl (0.2-1.0) 08/05/23 00:06 AST 24 U/L (13-39) 08/05/23 00:06 ALT 31 U/L (7-52) 08/05/23 00:06 Alkaline Phosphatase 74 U/L (34-104) 08/05/23 00:06 Troponin I High Sens 9.3 pg/ml (0-20) 08/05/23 00:06 B-Natriuretic Peptide 168 pg/ml (0-100) H 08/05/23 00:06 Total Protein 6.1 gm/dl (6.0-8.3) 08/05/23 00:06 Albumin 4.0 gm/dl (3.4-5.0) 08/05/23 00:06 Globulin 2.1 gm/dl (2.5-4.0) L 08/05/23 00:06 Albumin/Globulin Ratio 1.9 (0.9-2) 08/05/23 00:06 SARS-CoV-2 (PCR) POSITIVE (Negative) 08/05/23 00:14 Influenza Type A (PCR) Negative (Neg) 08/05/23 00:14 Influenza Type B (PCR) Negative (Neg) 08/05/23 00:14 RSV (RT-PCR) Negative (Neg) 08/05/23 00:14 Impressions Chest X-Ray 08/08/23 15:30 XR chest 1V portable CLINICAL HISTORY: s/p ppm ensure no PTX COMPARISON STUDY: Chest radiograph August 04, 2023. FINDINGS: There is no pneumothorax placement of a dual-lead left subclavian pacer. Low lung volumes are unchanged. There is no evidence for pulmonary edema or pneumonia. Cardiomegaly is unchanged. Mediastinal contours are stable. Lead tips project over the right atrial appendage and right ventricle. IMPRESSION: No pneumothorax status post placement of a dual-lead left subclavian pacemaker. ACT 112: Negative or not required by law. Electronically signed by: Edgardo Mao M.D. 08/08/2023 3:44 PM 08/08/23 08:15 EP Lab Images for PACS ONCE Pending Results Patient Have Any Pending Studies at Discharge: No Discharge Instructions Given to Patient (Per Discharging Provider) Device and wound check at [facility] next week PLEASE RESUME YOUR USUAL MEDICATIONS. PLEASE CALL YOUR PRIMARY CARE PHYSICIAN OR RETURN TO THE ER IF WITH WORSENING OF SYMPTOMS, INCLUDING CHEST PAIN, FEVER/CHILLS, BLEEDING/DISCHARGE/SWELLING/REDNESS OVER THE SURGICAL SITE, ETC FOLLOW UP WITH PRIMARY CARE PHYSICIAN OUTLINED ABOVE. Total Time Total Time Spent Total Time Spent (In Minutes): 35 minutes
== END 2023-08-08 17:41 | disposition home or self-care (01) | DRG 242 ==
LOC: ED 23:19 → EDINP 08-05 01:49 → 2S 08-05 02:50